=== PATIENT | female | born 1990 | race Caucasian/White ===

== ENCOUNTER 2023-09-21 10:33 | Outpatient (AMB) | payer OTHER, SELFPAY ==
--- NOTE | 2023-09-21 10:41 | A.OFFPC_ITS ---
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 Patient has not seen a doctor in quite some time. She seems to be suffering with anxiety and grief over the loss of her father a few years ago. Concern-> she does report having some easy bruising and some hair thinning that has been unusual over the last few months. She does admit to a family history of thyroid dysfunction. -->Also reports she has been dealing wit h a lot of heartburn. Has been using omeprazole [id number] would like a script for this. Of note has had an endoscopy in the past though unclear if esophagitis was found. Today blood pressure very elevated in the office. Unclear if her high blood pressure is related to her anxiety or she truly has high blood pressure. She was started on blood pressure monitoring. Anxiety: Has been dealing with anxiety for quite some time now. She reports her anxiety does disrupt her life. Has not spoken with a mental health therapist or tried any medication in the past. Also has times of severe anxiety and panic and is interested in as needed medication for panic disorder. PLAN: Willing to start cognitive behavioral therapy and start low-dose SSRI to help her with anxiety. 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: Would like to establish care with a black oxide operator for cervical cancer screening PFSH Surgical History Hx of cholecystectomy Family History (Updated 09/21/23 @ 10:57 by Abdi Lester PA-C) Father Diabetes Maternal Grandmother Breast cancer Social History (Updated 09/21/23 @ 10:58 by Abdi Lester PA-C) Alcohol intake: current Alcohol intake frequency: a few times a week Alcohol type: beer Patient Tobacco Use Status: Never used Tobacco Current occupational status: employed Current occupation: [employer] Cognitive needs: No Hearing needs: No Vision needs: No Questionnaire PHQ-9 Over the last 2 weeks, how often have you been bothered by any of the following problems? 1. Little interest or pleasure in doing things: not at all 2. Feeling down, depressed, or hopeless: not at all 3. Trouble falling or staying asleep, or sleeping too much: not at all 4. Feeling tired or having little energy: not at all 5. Poor appetite or overeating: not at all 6. Feeling bad about yourself - or that you are a failure or have let yourself or your family down: not at all 7. Trouble concentrating on things, such as reading the newspaper or watching television: not at all 8. Moving or speaking so slowly that other people could have noticed. Or the opposite - being so fidgety or restless that you have been moving around a lot more than usual: not at all 9. Thoughts that you would be better off or of hurting yourself in some way: not at all Total score: 0 Depression Screening Interpretation: Negative Depression Screening Done: Yes 90969 - PHQ-9 Billing: Yes Source: Developed by Drs. Amadeo Rangel, Rosa Isela Cameron, Chris Isabel and colleagues, with an educational pino from [employer]. Thrive Questionnaire Date Thrive assessed: 09/21/23 I am a: Patient What is your living situation today?: I have a steady place to live Within the past 12 months, did the food you bought not last and you didn't have the money to get more?: Never true Within the past 12 months, did you worry whether your food would run out before you got money to buy more?: Never true Do you have trouble paying for medicines?: No Do you have trouble getting transportation to medical appointments?: No Do you have trouble paying your heating and electricity bill?: No Do you have trouble taking care of your child, family member or friend?: No Do you have trouble with day-to-day activities such as bathing, preparing meals, shopping, managing finances, etc.?: No Are you currently unemployed and looking for a job?: No Are you interested in more education?: No Please select the resources that you would like help with: None THRIVE Score: 0 AUDIT C Alcohol Use Questionnaire (AUDIT-C) 1. How often do you have a drink containing alcohol?: Never Total Score: 0 MIRYAM-7 AMB Questionnaire MIRYAM-7 Date MIRYAM - 7 assessed: 09/21/23 Feeling nervous, anxious, or on edge: 3 = Nearly every day Not being able to stop or control worryin = Nearly every day Worrying too much about different things: 3 = Nearly every day Trouble relaxin = Nearly every day Being so restless that it is hard to sit still: 1 = Several days Becoming easily annoyed or irritable: 1 = Several days Feeling afraid as if something awful might happen: 3 = Nearly every day Total MIRYAM-7 score (0-4 normal; 5-9 mild; 10-14 moderate; 15-21 severe): 17 Source: Developed by Drs. Amadeo Rangel, Rosa Isela Cameron, Chris Isabel and colleagues, with an educational pino from [employer]. MIRYAM-7 Assessment Billing MIRYAM-7 Assessment Tool: MIRYAM-7 Assessment 19643 Review of Systems Const Reports fatigue and Denies headache(s) Eyes Denies loss of vision ENT Denies vertigo, Denies dizziness, Denies headache(s) and Denies sore throat Card Denies chest pain, Denies leg edema and Denies lightheadedness Resp Denies cough, Denies hemoptysis and Denies wheezing GI Denies abdominal pain, Denies melena, Denies constipation, Reports dyspepsia, Reports heartburn, Denies diarrhea and Denies vomiting Denies urinary frequency, Denies dysuria and Denies urinary urgency Musc Denies arthralgias, Denies joint swelling, Denies numbness and Denies tingling Skin/Breast Details: + bruising Neuro Denies Abnormal speech present, Denies behavioral changes, Denies vertigo, Denies dizziness, Denies headache(s), Denies loss of vision, Denies memory loss, Denies numbness and Denies tingling Psych Denies anxiety, Denies behavioral changes, Denies depression, Denies memory loss and Denies panic attacks Endo Reports fatigue Felipe/Lymph Denies easy bleeding and Reports easy bruising Aller/Immun Denies wheezing Physical exam (Primary Care) Vital Signs: Last Vital Signs Pulse 65 09/21/23 10:43 BP 162/90 H 09/21/23 10:43 Pulse Ox 100 09/21/23 10:43 Oxygen Delivery Method Room Air 09/21/23 10:43 BMI result Body Mass Index 30.2 Tobacco/Smoking Status: Tobacco use Status Tobacco use date assessed 09/21/23 09/21/23 10:43 Patient Tobacco Use Status Never used Tobacco 09/21/23 10:58 PHQ-9: PHQ-9 Score PHQ-9: Total score 0 09/26/23 16:25 Depression Screening Interpretation: Negative Thrive Assessment: Date of Thrive Assessment Date Thrive assessed 09/21/23 09/21/23 10:43 Const General: healthy appearing, no acute distress, alert and awake Nutritional Appearance: well nourished Orientation/consciousness: oriented to person, oriented to place and oriented to time HENMT Ears: TM's normal bilaterally General nose exam: Normal nasal mucous membranes and turbinates present Eyes Conjunctivae: conjunctivae normal Sclerae: sclerae normal Pupils: Equal, round and reactive pupils present Neck Neck: Yes no lymphadenopathy and Yes no JVD Thyroid: Thyroid normal Carotids: no bruits Resp Effort & Inspection: normal respiratory effort and not tachypneic Auscultation: no crackles, no rales, no rhonchi and no wheezes Cardio Rate: regular rate Rhythm: regular rhythm Heart sounds: no murmurs and normal S1 and S2 GI Palpation (GI): Soft to palpation, nontender, no hepatomegaly and no splenomegaly Auscultation: normal bowel sounds Skin General skin exam: no rashes or lesions noted and dry skin Neuro General: oriented to person, oriented to place and oriented to time Cranial nerves: Yes Equal, round and reactive pupils present Speech: No Abnormal speech present Gait exam (Neuro): Normal gait present Motor exam (neuro): no tremor noted Extrem Right upper extremity: full ROM Left upper extremity: full ROM Right lower extremity: full ROM; no edema Left lower extremity: full ROM; no edema Psych Mental Status: mental status grossly normal Speech and movement: Normal speech and movement present Affect: normal affect Attitude: cooperative Thought process: Normal thought process present Assessment and Plan Assessment & Plan (1) MIRYAM (generalized anxiety disorder): Code(s): F41.1 - Generalized anxiety disorder Plan: Patient's MIRYAM-7 score positive for moderate anxiety. She is willing to start medication and start cognitive behavioral therapy for her anxiety. Also has times of severe panic symptoms thus will supply her with lorazepam to use on a emergency basis for anxious symptoms (2) HTN (hypertension): Code(s): I10 - Essential (primary) hypertension Qualifiers: Hypertension type: primary hypertension Qualified Code(s): I10 - Essential (primary) hypertension Plan: Patient's blood pressure elevated today in office. She is attributing her blood pressure is to being anxious. Will supply patient with a paper Rx for blood pressure monitor kit do home blood pressure monitoring. Will follow-up in 4 weeks to evaluate her blood pressure readings and perhaps start low-dose blood pressure medication. (3) Easy bruising: Code(s): R23.3 - Spontaneous ecchymoses (4) Hair thinning: Code(s): L65.9 - Nonscarring hair loss, unspecified (5) Cervical cancer screening: Code(s): Z12.4 - Encounter for screening for malignant neoplasm of cervix Plan: Willing to establish care with a black oxide operator for cervical cancer screening. (6) GERD (gastroesophageal reflux disease): Code(s): K21.9 - Gastro-esophageal reflux disease without esophagitis Qualifiers: Esophagitis presence: without esophagitis Qualified Code(s): K21.9 - Gastro-esophageal reflux disease without esophagitis Plan: Patient does report dealing with a lot of heartburn as of late. Does use [id number] omeprazole would like a script for this. Will consider GI evaluation due to the continued GERD Orders: Orders TSH reflex Free T4 09/21/23 R23.3 - Spontaneous ecchymoses Comprehensive Winnie. Panel Fast 09/21/23 I10 - Essential (primary) hypertension Complete Blood Count no Diff 09/21/23 I10 - Essential (primary) hypertension Microalbumin, Random (w Creat) 09/21/23 I10 - Essential (primary) hypertension Referrals Counseling Referral F41.1 - Generalized anxiety disorder, Z13.220 - Encounter for screening for lipoid disorders QUALITY REVIEW TRAINER Referral Z12.4 - Encounter for screening for malignant neoplasm of cervix Medications: New sertraline 50 mg PO DAILY 30 tabs 1RF 30 days F41.1 - Generalized anxiety disorder lorazepam 0.5 mg PO BID PRN 10 tabs 0RF anxiety 5 days F41.1 - Generalized anxiety disorder blood pressure monitor take blood pressure reading once a day as needed 1 ea 0RF I10 - Essential (primary) hypertension Coding Level of Care Code New Pt Level 4 (34399) Diagnoses MIRYAM (generalized anxiety disorder) F41.1 Primary hypertension I10 Hypertension type: primary hypertension Easy bruising R23.3 Hair thinning L65.9 Cervical cancer screening Z12.4 Gastroesophageal reflux disease without esophagitis K21.9 Esophagitis presence: without esophagitis Additional Codes MIRYAM-7 Assessment Billing - MIRYAM-7 Assessment Tool: MIRYAM-7 Assessment 75195 ([id number])
[2023-09-21 10:43] VITALS: BP 162/90; PULSE 65; O2SAT 100; BMI 30.2
== END 2023-09-21 11:18 | disposition home or self-care (01) ==
PROVIDERS: PCP Nurse Practitioner Family; Visit Provider Physician Assistant
DX: I10 Essential (primary) hypertension (principal); F41.1 Generalized anxiety disorder; R23.3 Spontaneous ecchymoses; L65.9 Nonscarring hair loss, unspecified; K21.9 Gastro-esophageal reflux disease without esophagitis
CPT/HCPCS: 99204

== ENCOUNTER 2023-09-21 11:30 | Outpatient (REF) | payer OTHER, SELFPAY ==
[2023-09-21 12:05] LABS: Hematocrit 24.4 % (37.0-47.0); Hemoglobin 7.4 g/dl (12.0-16.0); Mean Corpuscular HGB Conc 30.3 g/dl (31.0-35.0); Mean Corpuscular Hemoglobin 26.7 pg (27.0-33.0); Mean Corpuscular Volume 88.1 fL (80.0-98.0); Mean Platelet Volume 10.8 fL (9.4-12.3); Platelet Count 118 X10*3/uL (160-400); Red Blood Count 2.77 X10*6/uL (4.20-5.50); White Blood Count 5.7 X10*3/uL (4.8-10.8)
[2023-09-21 12:51] LABS: Alanine Aminotransferase 29 U/L (0-31); Alkaline Phosphatase 134 U/L (39-117); Anion Gap 21 (12-20); Aspartate Amino Transferase 115 U/L (5-31); Bilirubin Total 2.8 mg/dL (0.0-1.0); Blood Urea Nitrogen 3 mg/dL (9-16); Calcium 8.2 mg/dL (8.4-10.2); Carbon Dioxide 18 mmol/L (22-29); Chloride 104 mmol/L (96-108); Estimated Glomerular Filt Rate > 60; Glucose Fasting 94 mg/dL (60-99); Potassium 3.3 mmol/L (3.3-5.1); Sodium 140 mmol/L (135-145)
[2023-09-21 13:00] LABS: TSH reflex Free T4 1.82 uIU/mL (0.32-4.0)
[2023-09-21 13:22] LABS: Creatinine Urine 188.13 mg/dL
== END 2023-09-21 11:31 | disposition home or self-care (01) ==
LOC: HO.LAB 11:30
PROVIDERS: PCP Physician Assistant; Visit Provider Physician Assistant
DX: I10 Essential (primary) hypertension (principal); R23.3 Spontaneous ecchymoses
CPT/HCPCS: 36415; 80053; 82043; 82570; 84443; 85027

== ENCOUNTER → 2023-10-02 14:20 | Outpatient (BNV) | payer OTHER, SELFPAY | PROVIDERS: PCP Physician Assistant; Visit Provider Internal Medicine Medical Oncology | DX: D64.9 Anemia, unspecified (principal) | CPT/HCPCS: 99204; 99213 ==

== ENCOUNTER 2023-10-03 07:46 | Outpatient (REF) | payer OTHER, SELFPAY ==
--- NOTE | ~2023-10-03 | US_ITS ---
EXAMINATION: US ABDOMEN COMPLETE CLINICAL INFORMATION: Unspecified jaundice. COMPARISON: CT abdomen and pelvis 03/24/2014. Ultrasound abdomen 03/22/2008. TECHNIQUE: Real-time imaging of the abdominal viscera. FINDINGS: PANCREAS: Normal. ABDOMINAL AORTA: The proximal, mid, and distal segments are normal in caliber. INFERIOR VENA CAVA: Visualized portions are normal. LIVER: The liver is markedly enlarged measuring over 26 cm with increased echogenicity consistent with hepatic steatosis. The liver contour is normal. No focal hepatic lesion. There is no intrahepatic biliary duct dilatation seen. GALLBLADDER: Surgically absent. COMMON BILE DUCT: Normal in caliber measuring 0.3 cm in diameter. RIGHT KIDNEY: Normal. No hydronephrosis. No renal calculi or focal parenchymal lesions. The kidney measures 13.4 cm in maximum dimension. LEFT KIDNEY: Normal. No hydronephrosis. No renal calculi or focal parenchymal lesions. The kidney measures 14.2 cm in maximum dimension. SPLEEN: The spleen is massive in size measuring 20.8 cm in maximum dimension. FREE FLUID: None. US/US abdomen complete IMPRESSION: Enlarged fatty liver with massive splenomegaly.
== END 2023-10-03 07:47 | disposition home or self-care (01) ==
LOC: HO.US 07:46
PROVIDERS: PCP Physician Assistant; Visit Provider Physician Assistant
DX: R17 Unspecified jaundice (principal)
CPT/HCPCS: 76700

== ENCOUNTER → 2023-10-18 10:58 | Day surgery (SDC) | payer OTHER, SELFPAY ==
--- NOTE | ~2023-10-18 | CT_ITS ---
PROCEDURE: CT GUIDED BIOPSY CLINICAL INFORMATION: Splenomegaly COMPARISON: None available. TECHNIQUE/FINDINGS: This CT examination was performed using dose optimization techniques as appropriate, variously including the following: *Automated exposure control *Adjustment of mA and/or kV according to patient size (this includes techniques or standardized protocols for targeted exams where dose is matched to indication/reason for exam; i.e. extremities or head) *Use of iterative reconstruction technique DLP: 204 mGy-cm CONSCIOUS SEDATION: I personally supervised an independent trained observer for moderate conscious sedation utilizing 2mg of Versed and 100 mcg of fentanyl. The patient was monitored with pulse oximetry, blood pressure cuff, and EKG leads by a registered nurse. Total intraservice sedation time: 30 minutes Informed consent was obtained following the risk and benefits of the procedure with the patient. The patient was placed prone on the fluoroscopy table. A limited CT scan of the pelvis was performed. A site overlying the right lower back was selected, marked and sterilely prepped and draped. Following the administration of 1% lidocaine for local anesthesia, the right iliac bone was accessed with a 13-gauge trocar needle. Bone marrow aspirate was performed and the specimens were divided into green and purple top tubes. Then, a core biopsy of the bone marrow was performed in the samples placed in formalin. The samples were deemed to be adequate. The needle was removed and hemostasis was achieved with manual compression. A dressing was applied. Post biopsy images demonstrate no bleeding or other complication. Patient tolerated the procedure well. CT/CT biopsy asp core bone marrow . IMPRESSION: Bone marrow biopsy
[2023-10-18 11:20] VITALS: BMI 27.8
[2023-10-18 11:20] LABS: UPreg QC Valid YES; Urine Pregnancy NEGATIVE (NEGATIVE)
--- NOTE | 2023-10-18 12:21 | MHC.SHP ---
Pre-Procedural Eval Section A - 24 Hr Update-Section A only Date of Service: 10/18/23 Section B - Complete if H&P > 30 days Chief Complaint: BONE MARROW, SPLENOMEGALY Details of Present Illness: 33 y/o female with anemia and splenomegaly. Hematology requests a bone marrow biopsy Relevant Family History (Specify if Yes): No Relevant Social History: None Present Medications: see Short Stay Collaborative assessment Medical History: Significant History History of Previous Operations: No relevant previous surgery Allergies: Allergies Allergy/AdvReac Type Severity Reaction Status Date / Time No Known Allergies Allergy Verified 10/18/23 11:21 Review of Systems Sugical H&P ROS: Negative: Cardiovascular and Respiratory and Yes, Specify: Integumentary (rash on chest) Exam Surgical H&P Exam: Normal: Heart, Normal: Lungs, Normal: Skin and Normal: Neurological Plan CT bone marrow biopsy Time Spent With Patient Time: Total time managing care of this patient today ____ minutes.
[2023-10-18 14:59] LABS: Bone Marrow SEE SEPARATE REPORT
== END | disposition home or self-care (01) ==
PROVIDERS: Pathology Anatomic Pathology & Clinical Pathology; Physician Assistant Surgical; Student in an Organized Health Care Education/Training Program; PCP Physician Assistant; Visit Provider Internal Medicine Medical Oncology
PROC: (CPT 38221; principal; 2023-10-18 13:00)
DX: D64.9 Anemia, unspecified (principal); R16.1 Splenomegaly, not elsewhere classified
CPT/HCPCS: 36415; 38222; 81025; 81455; 88184; 88185; 88237; 88264; 88305; 88311; 88313; 99152; J0665; J1642; J2250; J2310; J3010

== ENCOUNTER → 2023-10-18 11:36 | Outpatient (BNV) | payer OTHER, SELFPAY | PROVIDERS: PCP Physician Assistant; Visit Provider Student in an Organized Health Care Education/Training Program | DX: R16.1 Splenomegaly, not elsewhere classified (principal) | CPT/HCPCS: 38222; 99152 ==

== ENCOUNTER 2023-10-19 15:40 | Outpatient (AMB) | payer OTHER, SELFPAY ==
--- NOTE | 2023-10-19 15:45 | A.OFFPC_ITS ---
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 Accompanied by: Self / Same As Patient Allergies No Known Allergies Allergy (Verified 10/19/23 15:52) Medication List - Last Reconciled 10/19/23 by Abdi Lester PA-C blood pressure monitor take blood pressure reading once a day as needed ferrous sulfate 325 mg PO BID 90 days folic acid 1 mg PO DAILY lorazepam 0.5 mg PO BID PRN 5 days omeprazole 20 mg PO DAILY potassium chloride ER 20 mEq PO BID sertraline 50 mg PO DAILY 30 days Tobacco use date assessed: 09/21/23 Dental Screening Dental Screen Date: 09/21/23 HPI 4 weeks F/U for anxiety HPI Details Patient is a 33-year-old female here today for follow-up visit. At last visit we discussed her mental health and started on SSRI therapy sertraline 50 mg. Labs were abnormal 4 normocytic anemia and hypokalemia. She was sent to Hematology and will be getting workup with bone marrow biopsy. She has been started on iron supplementation and folic acid. .. Liver enzymes elevated thus will send for ultrasound which did show fatty liver and enlarged spleen. .. Generalized anxiety disorder: Has been started on sertraline 50 mg which she reports she has noted a difference in her anxious symptoms. Would like to continue medication for now. She has use lorazepam 0.5 mg on very limited basis. She is still waiting a call from counseling to set up cognitive behavioral therapy. Laboratory Tests 10/02/23 10/02/23 10/10/23 14:40 14:50 15:01 Hgb 7.3 L 8.6 L Haptoglobin 116 Potassium 2.9 L* 4.3 D Total Bilirubin 1.4 H AST 65 H 63 H PFSH Surgical History Hx of cholecystectomy Family History Father Diabetes Maternal Grandmother Breast cancer Family/Other Lymphoma Social History Household Members: Family Housing: Apartment Alcohol intake: current Alcohol intake frequency: a few times a week Alcohol type: beer Patient Tobacco Use Status: Never used Tobacco e-Cigarette/Vaping Use: Never Used Second Hand Smoke Exposure: No service: No Current occupational status: employed Current occupation: [employer] Cognitive needs: No Hearing needs: No Vision needs: No Questionnaire Thrive Questionnaire Date Thrive assessed: 09/21/23 MIRYAM-7 AMB Questionnaire MIRYAM-7 Date MIRYAM - 7 assessed: 09/21/23 Source: Developed by Drs. Amadeo Rangel, Rosa Isela Cameron, Chris Isabel and colleagues, with an educational pino from [employer]. Review of Systems Const Denies headache(s) Eyes Denies loss of vision ENT Denies vertigo, Denies dizziness, Denies headache(s) and Denies sore throat Card Denies chest pain, Denies leg edema and Denies lightheadedness Resp Denies cough, Denies hemoptysis and Denies wheezing GI Denies abdominal pain, Denies melena, Denies constipation, Denies diarrhea and Denies vomiting Denies urinary frequency, Denies dysuria and Denies urinary urgency Musc Denies arthralgias, Denies joint swelling, Denies numbness and Denies tingling Neuro Denies Abnormal speech present, Denies behavioral changes, Denies vertigo, Denies dizziness, Denies headache(s), Denies loss of vision, Denies memory loss, Denies numbness and Denies tingling Psych Denies anxiety, Denies behavioral changes, Denies depression, Denies memory loss and Denies panic attacks Felipe/Lymph Denies easy bleeding and Denies easy bruising Aller/Immun Denies wheezing Physical exam (Primary Care) Vital Signs: Last Vital Signs Pulse 64 10/19/23 15:46 BP 136/62 10/19/23 15:46 Pulse Ox 99 10/19/23 15:46 Oxygen Delivery Method Room Air 10/19/23 15:46 BMI result Body Mass Index 28.4 Tobacco/Smoking Status: Tobacco use Status Tobacco use date assessed 09/21/23 10/19/23 15:47 Patient Tobacco Use Status Never used Tobacco 10/19/23 15:47 e-Cigarette/Vaping Use Never Used 10/19/23 15:47 Thrive Assessment: Date of Thrive Assessment Date Thrive assessed 09/21/23 10/19/23 15:47 Const General: healthy appearing, no acute distress, alert and awake Nutritional Appearance: well nourished Orientation/consciousness: oriented to person, oriented to place and oriented to time HENMT Ears: TM's normal bilaterally General nose exam: Normal nasal mucous membranes and turbinates present Eyes Conjunctivae: conjunctivae normal Sclerae: sclerae normal Pupils: Equal, round and reactive pupils present Neck Neck: Yes no lymphadenopathy and Yes no JVD Thyroid: Thyroid normal Carotids: no bruits Resp Effort & Inspection: normal respiratory effort and not tachypneic Auscultation: no crackles, no rales, no rhonchi and no wheezes Cardio Rate: regular rate Rhythm: regular rhythm Heart sounds: no murmurs and normal S1 and S2 GI Palpation (GI): Soft to palpation, nontender, no hepatomegaly and no splenomegaly Auscultation: normal bowel sounds Skin General skin exam: no rashes or lesions noted and dry skin Neuro General: oriented to person, oriented to place and oriented to time Cranial nerves: Yes Equal, round and reactive pupils present Speech: No Abnormal speech present Gait exam (Neuro): Normal gait present Motor exam (neuro): no tremor noted Extrem Right upper extremity: full ROM Left upper extremity: full ROM Right lower extremity: full ROM; no edema Left lower extremity: full ROM; no edema Psych Mental Status: mental status grossly normal Speech and movement: Normal speech and movement present Affect: normal affect Attitude: cooperative Thought process: Normal thought process present Assessment and Plan Assessment & Plan (1) MIRYAM (generalized anxiety disorder): Code(s): F41.1 - Generalized anxiety disorder Plan: As per HPI patient is anxiety seems to have been better. Her health issues are being investigated which helps her anxiety as well. She would like to continue on sertraline 50 mg for now. She will be awaiting a call from counseling service to start up with mental health therapy. (2) Normochromic normocytic anemia: Code(s): D64.9 - Anemia, unspecified Plan: Now followed by Hematology. Has been started on iron and folic acid which she feels has been helpful. Hemoglobin has been trending up (3) Coccyx pain: Code(s): M53.3 - Sacrococcygeal disorders, not elsewhere classified Plan: Secondary to her recent bone marrow biopsy. Will supply patient with short-term script of tramadol to use for pain. (4) HTN (hypertension): Code(s): I10 - Essential (primary) hypertension Qualifiers: Hypertension type: primary hypertension Qualified Code(s): I10 - Essential (primary) hypertension Plan: Patient's blood pressure much improved today in office. She has been able to lose weight and her anxiety seems much better manage at this time. Will continue without medication for the control of her blood pressure and continue working on lifestyle and dietary modifications. Goal blood pressures to remain below 140/90 consistently. Medications: New tramadol 50 mg PO DAILY 5 days 5 tabs 0RF M53.3 - Sacrococcygeal disorders, not elsewhere classified Refilled sertraline 50 mg PO DAILY 30 days 30 tabs 1RF F41.1 - Generalized anxiety disorder Coding Level of Care Code Est Pt Level 4 (83955) Diagnoses MIRYAM (generalized anxiety disorder) F41.1 Normochromic normocytic anemia D64.9 Coccyx pain M53.3 Primary hypertension I10 Hypertension type: primary hypertension
[2023-10-19 15:46] VITALS: BP 136/62; PULSE 64; O2SAT 99; BMI 28.4
== END 2023-10-19 16:17 | disposition home or self-care (01) ==
PROVIDERS: PCP Physician Assistant; Visit Provider Physician Assistant
DX: F41.1 Generalized anxiety disorder (principal); D64.9 Anemia, unspecified; M53.3 Sacrococcygeal disorders, not elsewhere classified; I10 Essential (primary) hypertension
CPT/HCPCS: 99214

== ENCOUNTER 2023-10-27 11:50 | Outpatient (AMB) | payer OTHER, SELFPAY ==
--- NOTE | 2023-10-27 12:06 | A.OFFVIS_ITS ---
Vital Signs 10/27/23 12:07 Height 5 ft 9 in Weight 189 lb 9.561 oz BMI 28.0 BP 116/60 Blood Pressure Location Lt brachial Position Sitting Pulse 69 Intake Visit Reasons: *URGENT* Oncology referral, colo scrn Intake Note: christy presents in the office as a Urgent colo screening. CC: She is getting an iron infusion on monday. Working with Dr Guerra - had a bone biopsy. Has anemia and wants to look into further. Babcock Tester Required: No Allergies No Known Allergies Allergy (Verified 10/27/23 12:08) HPI HPI *URGENT* Oncology referral, colo scrn: Details: 33-year-old female with past medical history of anemia, GERD, elevated bilirubin, GERD, hypertension, transaminitis, history of EtOH use is here today for initial consultation. Patient was referred to us by her oncologist chick grader. Patient is seen for anemia. Patient will start having IV iron infusion. Patient had bone marrow biopsy done, however due to sampling unable to complete the study. Recent lab work and abdominal ultrasound Laboratory Tests 10/02/23 10/10/23 10/17/23 14:50 15:01 15:00 RBC 3.22 L Hgb 8.6 L Hct 28.0 L MCV 87.0 MCH 26.7 L MCHC 30.7 L RDW 24.4 H Plt Count 321 PT 16.4 H INR 1.3 H APTT 43.4 H vWF VIII Activity 158 von Willebrand Antigen 190 Iron 155 TIBC 355 % Saturation 44 Ferritin 19 Total Bilirubin 1.4 H AST 63 H ALT 16 Alkaline Phosphatase 83 LIVER: The liver is markedly enlarged measuring over 26 cm with increased echogenicity consistent with hepatic steatosis. The liver contour is normal. No focal hepatic lesion. There is no intrahepatic biliary duct dilatation seen. GALLBLADDER: Surgically absent. COMMON BILE DUCT: Normal in caliber measuring 0.3 cm in diameter. RIGHT KIDNEY: Normal. No hydronephrosis. No renal calculi or focal parenchymal lesions. The kidney measures 13.4 cm in maximum dimension. LEFT KIDNEY: Normal. No hydronephrosis. No renal calculi or focal parenchymal lesions. The kidney measures 14.2 cm in maximum dimension. SPLEEN: The spleen is massive in size measuring 20.8 cm in maximum dimension. FREE FLUID: None. US/US abdomen complete IMPRESSION: Enlarged fatty liver with massive splenomegaly. Patient does admit to drinking alcohol in the past. Patient states that currently she is not drinking alcohol. Denies any family history of autoimmune disorders. When evaluating patient and speaking to her I have noticed telangiectasia on her nose and her chest. Patient reports that this appeared about a year ago or so. Patient denies any abdominal pain or discomfort. Denies any dyspepsia, dysphagia or odynophagia. Patient denies any acid reflux at this time. Patient was started on omeprazole couple months ago and states that medication has been working. Denies any melena, hematochezia, unintentional weight loss or ribbon like stools. PFSH Surgical History Hx of colonoscopy History of esophagogastroduodenoscopy (EGD) Hx of cholecystectomy Family History Father Diabetes Maternal Grandmother Breast cancer Family/Other Lymphoma Social History Household Members: Family Housing: Apartment Alcohol intake: current Alcohol intake frequency: a few times a week Alcohol type: beer Patient Tobacco Use Status: Never used Tobacco e-Cigarette/Vaping Use: Never Used Second Hand Smoke Exposure: No service: No Current occupational status: employed Current occupation: [employer] Cognitive needs: No Hearing needs: No Vision needs: No Review of Systems Const Denies weight gain and Denies weight loss ENT Reports no additional complaints, Denies dysphagia and Denies odynophagia Card Reports no additional complaints Resp Reports no additional complaints GI Denies abdominal pain, Denies belching, Denies melena, Denies bloating, Denies change in bowel habits, Denies dysphagia, Denies excessive flatus, Denies dyspepsia, Denies heartburn, Denies diarrhea, Denies loose stools, Denies nausea, Denies odynophagia and Denies vomiting Musc Reports no additional complaints Neuro Reports no additional complaints Psych Reports no additional complaints Endo Reports no additional complaints Physical Exam Vital Signs: Last Vital Signs Pulse 69 10/27/23 12:07 BP 116/60 10/27/23 12:07 BMI result Body Mass Index 28.0 Const General: healthy appearing, no acute distress and well developed Nutritional Appearance: well nourished Orientation/consciousness: patient oriented x3 Resp Effort & Inspection: normal respiratory effort, able to speak in complete sentences, no tracheal deviation and symmetric chest movement Auscultation: clear to auscultation bilaterally Cardio Rate: regular rate GI Inspection: Yes normal to inspection and No distended Palpation (GI): Soft to palpation, not firm, nontender and No hepatosplenomegaly present Auscultation: normal bowel sounds General: Yes no CVA tenderness Back/Spine/Pelvis Back: no CVA tenderness Skin General skin exam: elasticity normal, turgor normal and dry skin Neuro General: patient oriented x3 Psych Appearance: grossly normal Mental Status: mental status grossly normal Assessment & Plan Assessment & Plan (1) Anemia: Code(s): D64.9 - Anemia, unspecified Category: Medical Qualifiers: Anemia type: unspecified type Qualified Code(s): D64.9 - Anemia, unspecified (2) GERD (gastroesophageal reflux disease): Code(s): K21.9 - Gastro-esophageal reflux disease without esophagitis Category: Medical Qualifiers: Esophagitis presence: without esophagitis Qualified Code(s): K21.9 - Gastro-esophageal reflux disease without esophagitis (3) Telangiectasia: Code(s): I78.1 - Nevus, non-neoplastic (4) Transaminitis: Code(s): R74.01 - Elevation of levels of liver transaminase levels (5) Hepatic steatosis: Code(s): K76.0 - Fatty (change of) liver, not elsewhere classified (6) Splenomegaly: Code(s): R16.1 - Splenomegaly, not elsewhere classified Plan Patient will continue omeprazole. Will do liver fibrosis panel as well as liver elastography ultrasound. Repeat liver panel today. Patient reports that she is no longer drinking alcohol. Advised avoiding alcohol as well as food high in fat. More protein and vegetables. Will check vitamin B12, folate vitamin-D level. Pending results we might order extra testing to rule out any autoimmune disorders. Patient will return to the office in 2 weeks, sooner on as needed basis. She is agreeable to this plan and verbalizes understanding of instructions. She was given the opportunity to ask questions and all questions answered. Thank you for allowing me to participate in her care Orders: Orders Vitamin B12 and Folate Today R19.7 - Diarrhea, unspecified Vitamin D 25-OH (D2 and D3) Today E55.9 - Vitamin D deficiency, unspecified Liver Fibrosis Pnl Today R74.8 - Abnormal levels of other serum enzymes US abdomen rhodes w elastography Today R74.01 - Elevation of levels of liver transaminase levels Liver Panel Today R74.01 - Elevation of levels of liver transaminase levels Coding Level of Care Code New Pt Level 4 (72783) Diagnoses Anemia, unspecified type D64.9 Anemia type: unspecified type Gastroesophageal reflux disease without esophagitis K21.9 Esophagitis presence: without esophagitis Telangiectasia I78.1 Transaminitis R74.01 Hepatic steatosis K76.0 Splenomegaly R16.1 Time Spent (min) 45 Comment 30 minutes spent with patient and additional 15 minutes spent reviewing her records
[2023-10-27 12:07] VITALS: BP 116/60; PULSE 69; BMI 28.0
== END 2023-10-27 13:33 | disposition home or self-care (01) ==
PROVIDERS: PCP Physician Assistant; Visit Provider Nurse Practitioner Family
DX: D64.9 Anemia, unspecified (principal); K21.9 Gastro-esophageal reflux disease without esophagitis; I78.1 Nevus, non-neoplastic; R74.01 Elevation of levels of liver transaminase levels; K76.0 Fatty (change of) liver, not elsewhere classified; R16.1 Splenomegaly, not elsewhere classified
CPT/HCPCS: 99204

== ENCOUNTER 2023-10-27 11:50 | Outpatient (REF) | payer OTHER, SELFPAY ==
[2023-10-27 14:37] LABS: Alanine Aminotransferase 38 U/L (0-31); Albumin Level 4.3 g/dL (3.5-5.0); Alkaline Phosphatase 75 U/L (39-117); Aspartate Amino Transferase 123 U/L (5-31); Bilirubin Direct 0.7 mg/dL (0.0-0.5); Bilirubin Total 1.4 mg/dL (0.0-1.0); Total Protein 8.1 g/dL (6.5-8.0)
[2023-10-27 15:08] LABS: Folate 14.6 ng/mL (> or = 4.0); Vitamin B12 847 pg/mL (200-900)
[2023-10-31 14:09] LABS: Vitamin D 25-OH, D2 <4 ng/mL; Vitamin D 25-OH, D3 13 ng/mL; Vitamin D 25-OH, Total 13 ng/mL (30-100)
[2023-11-04 12:18] LABS: FIB-ALT 34 U/L (6-29); FIB-Alpha-2-Macroglobulin 328 mg/dL (106-279); FIB-Apolipoprotein A1 80 mg/dL (101-198); FIB-GGT 354 U/L (3-50); FIB-Haptoglobin 116 mg/dL (43-212); FIB-Total Bilirubin 1.4 mg/dL (0.2-1.2); Liver Fibrosis Score 0.85; Liver Fibrosis Stage F4; Nec Inflam Act Grade A1; Nec Inflam Act Score 0.33
== END 2023-10-27 11:51 | disposition home or self-care (01) ==
LOC: HO.LAB 11:50
PROVIDERS: PCP Physician Assistant; Visit Provider Nurse Practitioner Family
DX: R74.8 Abnormal levels of other serum enzymes (principal); R74.01 Elevation of levels of liver transaminase levels; R19.7 Diarrhea, unspecified; E55.9 Vitamin D deficiency, unspecified; D64.9 Anemia, unspecified; K21.9 Gastro-esophageal reflux disease without esophagitis; I78.1 Nevus, non-neoplastic
CPT/HCPCS: 36415; 80076; 81596; 82306; 82607; 82746; 99202

== ENCOUNTER 2023-11-01 14:01 | Outpatient (AMB) | payer OTHER, SELFPAY ==
[2023-11-01 14:12] VITALS: BP 128/72; BMI 28.4
--- NOTE | 2023-11-01 14:12 | A.OFFVIS_ITS ---
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 Client Care Manager Required: No Information Interpreted: clinical only Apartment Maintenance Worker: Apartment Maintenance Worker Present Allergies No Known Allergies Allergy (Verified 11/01/23 14:12) Medication List - Last Reconciled 11/01/23 by Yasmine Rinaldi CNM blood pressure monitor take blood pressure reading once a day as needed ferrous sulfate 325 mg PO BID 90 days folic acid 1 mg PO DAILY lorazepam 0.5 mg PO BID PRN 5 days omeprazole 20 mg PO DAILY potassium chloride ER 20 mEq PO BID sertraline 50 mg PO DAILY 30 days tramadol 50 mg PO DAILY 5 days Is last menstrual period known: Yes Last menstrual period: 10/23/23 HPI HPI 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 She did not remember if she had ever had a Pap smear she thinks though she was seen at [facility] in the past she has been through a lot recently in that she was told that she was very severely anemic and they could not find a cause for her anemia because her periods are not that heavy. She uses tampons for them they used to be heavier with heavier clots. She is undergoing evaluation and treatment for the anemia she had a bone marrow biopsy but the sample was not good in the meantime she is taking vitamin B12 shots and she started yesterday with an iron transfusion she felt okay right after but then she did not feel well in the evening. She knows that this weekly transfusions of up to 4. If her body does not respond to the iron then she might need another bone marrow biopsy. She is sexually active she uses condoms currently. She was on control pills to help with heavy periods when she was teenager but not recently. 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 She has recently lost weight somewhat intentionally trying to be healthier she did not weigh herself per se but she was trying to be healthier and she went down about 3 sizes. She walks for exercise and lift some weights. [facility] Surgical History Hx of colonoscopy History of esophagogastroduodenoscopy (EGD) Hx of cholecystectomy Family History Father Diabetes Maternal Grandmother Breast cancer Family/Other Lymphoma Social History Household Members: Family Housing: Apartment Alcohol intake: current Alcohol intake frequency: a few times a week Alcohol type: beer Patient Tobacco Use Status: Never used Tobacco e-Cigarette/Vaping Use: Never Used Second Hand Smoke Exposure: No service: No Current occupational status: employed Current occupation: [employer] Cognitive needs: No Hearing needs: No Vision needs: No Female Reproductive History Menstrual Age of Menarche: 10 Duration of menses: 6-7 days Date of last menstrual period: 10/23/23 control method: none Total pregnancies: 0 History of abnormal pap smear: No (no previous pap) Physical Exam Vital Signs: Last Vital Signs BP 128/72 11/01/23 14:12 BMI result Body Mass Index 28.4 Const General: healthy appearing, comfortable, no acute distress, well developed and alert Nutritional Appearance: average body habitus Orientation/consciousness: patient oriented x3 Limitations: no limitations HEENT Head: Yes normocephalic Neck Neck: Yes normal visual inspection Thyroid: Thyroid normal Chest Chest palpation & inspection: normal inspection of the chest Breast/axilla inspection: normal inspection of the breasts and normal inspection of the axillae Breast/axilla palpation: normal palpation of the breasts and normal palpation of the axillae Resp Effort & Inspection: normal respiratory effort GI Inspection: Yes normal to inspection, No Abdominal wall edema and No distended Palpation (GI): Soft to palpation and nontender Other: External exam within normal limits vagina clear slightly dry end of menses noted cervix nulliparous pink smooth healthy with menses ending. (patient just remove tampon for exam) Uterus small anteverted mobile nontender adnexa nontender good tone with Kegel General: Yes bladder normal to palpation External Female Exam: normal external appearance and normal appearance of the urethra Speculum Exam - Vagina: normal appearance of the vagina, normal palpation and normal vaginal discharge Speculum Exam - Cervix: normal appearance of the cervix, normal palpation and nontender Bimanual exam- vagina & uterus: normal bimanual exam, normal palpation, uterine size normal, bladder normal to palpation, consistency normal, normal palpation, uterine mobility normal, uterine shape normal, No Cervical tenderness present, non-tender and no cervical motion tenderness Bimanual Exam- Adnexa, other: normal adnexae, no masses, normal and No adnexal tenderness Skin Other: Has a fine red rash on chest Neuro General: patient oriented x3 Assessment & Plan Assessment & Plan (1) Normochromic normocytic anemia: Code(s): D64.9 - Anemia, unspecified Category: Medical (2) Anemia: Code(s): D64.9 - Anemia, unspecified Category: Medical Qualifiers: Anemia type: unspecified type Qualified Code(s): D64.9 - Anemia, unspecified (3) Well woman exam with routine gynecological exam: Code(s): Z01.419 - Encounter for gynecological examination (general) (routine) without abnormal findings Category: Medical (4) Cervical cancer screening: Code(s): Z12.4 - Encounter for screening for malignant neoplasm of cervix Category: Medical (5) control counseling: Code(s): Z30.09 - Encounter for other general counseling and advice on contraception Category: Medical (6) Breast cancer screening: Code(s): Z12.39 - Encounter for other screening for malignant neoplasm of breast Category: Medical (7) Encounter for screening examination for sexually transmitted disease: Code(s): Z11.3 - Encounter for screening for infections with a predominantly sexual mode of transmission Category: Medical Plan -----Discussed in this visit the following: healthy balanced diet, regular and consistent exercise, getting recommended health screens, doing the best she can for her particular health concerns, kegel exercises, pap smear screening and followup recommendations, mammography screening and SBE, normal changes in cycles in her life stage--- . Review that sometimes it could be a consideration to take contraceptives to manage her menses and make them mo tolerable re consideration could al be given to a Mirena ius. discussed that she may or may not wish to consider whether not she is interested in conceiving she has got a lot on her plate now deal with the new diagnosis of the anemia and the health uncertainty at poses as well. She was not interested in blood work for STI testing she has had so much blood drawn already. I wished her luck with her continued evaluation and treatment. Did review diet she does try to have a healthy diet though she is not a big meat eater. She will be continuing care and follow-up with her primary care and hematology. Orders: Orders CT NG by PCR Today Z20.2 - Contact with and (suspected) exposure to infections with a predominantly sexual mode of transmission Bacterial Vaginosis Panel Today N89.8 - Other specified noninflammatory d isorders of vagina PAP + HPV E6/E7 rfx 18/45 Today Z01.419 - Encounter for gynecological examination (general) (routine) without abnormal findings Coding Level of Care Code New Pt Prev Care 18-39yr([id number] Diagnoses Normochromic normocytic anemia D64.9 Anemia, unspecified type D64.9 Anemia type: unspecified type Well woman exam with routine gynecological exam Z01.419 Cervical cancer screening Z12.4 control counseling Z30.09 Breast cancer screening Z12.39 Encounter for screening examination for sexually transmitted disease Z11.3
== END 2023-11-01 15:17 | disposition home or self-care (01) ==
LOC: HO.HWSM 14:01
PROVIDERS: PCP Physician Assistant; Visit Provider Advanced Practice Midwife
DX: Z01.419 Encounter for gynecological examination (general) (routine) without abnormal findings (principal); D64.9 Anemia, unspecified
CPT/HCPCS: 99385

== ENCOUNTER 2023-11-01 14:01 | Outpatient (REF) | payer OTHER, SELFPAY ==
[2023-11-03 02:49] LABS: CT PCR NOT DETECTED (Not Detect.); NG PCR NOT DETECTED (Not Detect.)
[2023-11-03 10:50] LABS: Bacterial Vaginosis PCR NEGATIVE (Negative); Candida Group PCR NOT DETECTED (Not Detect); Candida glab krusei PCR NOT DETECTED (Not Detect); Trichomonas vaginalis PCR NOT DETECTED (Not Detect)
[2023-11-06 11:43] LABS: HPV mRNA E6/E7 Not Detected (Not Detected)
== END 2023-11-01 14:02 | disposition home or self-care (01) ==
LOC: HO.LAB 14:01
PROVIDERS: PCP Physician Assistant; Visit Provider Advanced Practice Midwife
DX: Z01.419 Encounter for gynecological examination (general) (routine) without abnormal findings (principal); D64.9 Anemia, unspecified; N89.8 Other specified noninflammatory disorders of vagina; Z20.2 Contact with and (suspected) exposure to infections with a predominantly sexual mode of transmission
CPT/HCPCS: 0352U; 36415; 87491; 87591; 87624; 88175; 99385

== ENCOUNTER 2023-11-08 07:54 | Day surgery (SDC) | payer OTHER, SELFPAY ==
--- NOTE | 2023-11-07 11:22 | P.CONAN_ITS ---
HPI - Anesthesia Eval Consult details Narrative: 33yo F for Upper Endoscopy and Colonoscopy PMFSH Active Problems Active Problems: All Active Problems Encounter for screening examination for sexually transmitted disease (Acute) Breast cancer screening (Acute) control counseling (Acute) Cervical cancer screening (Acute) Well woman exam with routine gynecological exam (Acute) Coccyx pain (Acute) Normochromic normocytic anemia (Acute) GERD (gastroesophageal reflux disease) (Acute) Total bilirubin, elevated (Acute) Anemia (Acute) HTN (hypertension) (Acute) MIRYAM (generalized anxiety disorder) (Acute) Past Medical History Medical History (Updated 11/21/23 @ 14:21 by Esteban Guerra MD) Anemia Family History Family History Father Diabetes Maternal Grandmother Breast cancer Family/Other Lymphoma Surgical History Surgical History Hx of colonoscopy History of esophagogastroduodenoscopy (EGD) Hx of cholecystectomy Social History Social History Household Members: Family Housing: Apartment Alcohol intake: current Alcohol intake frequency: a few times a week Alcohol type: beer Patient Tobacco Use Status: Never used Tobacco e-Cigarette/Vaping Use: Never Used Second Hand Smoke Exposure: No Use of substances other than those prescribed or required for medical reasons: No Have you been hit, kicked, punched, or otherwise hurt by someone within the past year? If so, by whom?: No Do you feel safe in your current relationship?: Yes Do you have thoughts of harming others: None Do you have a plan to hurt others: No Plan Patient : No service: No Current occupational status: employed Current occupation: [employer] Cognitive needs: No Hearing needs: No Vision needs: No Meds Allergies Allergy/AdvReac Type Severity Reaction Status Date / Time No Known Allergies Allergy Verified 11/21/23 14:12 Assessment and Plan Assessment Anesthesia Assessment: Chart Reviewed
[2023-11-08 08:24] VITALS: BMI 28.2
[2023-11-08 08:29] VITALS: BP 150/76; PULSE 60; RESP 16; TEMP 36.7; O2SAT 98
[2023-11-08 08:29] LABS: UPreg QC Valid YES; Urine Pregnancy NEGATIVE (NEGATIVE)
--- NOTE | 2023-11-08 08:32 | MHC.SHP ---
Pre-Procedural Eval Section A - 24 Hr Update-Section A only Date of Service: 11/08/23 Section B - Complete if H&P > 30 days Chief Complaint: anemia,gerd, Relevant Family History (Specify if Yes): No Relevant Social History: None Present Medications: see Short Stay Collaborative assessment Medical History: Significant History (anxiety, splenomegaly ) History of Previous Operations: Relevant previous surgery/procedure and date(s) (Hx of colonoscopy History of esophagogastroduodenoscopy (EGD) Hx of cholecystectomy) Allergies: Allergies Allergy/AdvReac Type Severity Reaction Status Date / Time No Known Allergies Allergy Verified 11/01/23 14:12 Review of Systems Sugical H&P ROS: Negative: Constitution, Cardiovascular, Respiratory, Neurological, Psychiatric, Hem-Onc, Allergic/Immunologic, Gastrointestinal, Genitourinary, Musculoskeletal, Integumentary, Endocrine and Eyes/Ears/Nose/Throat Exam Surgical H&P Exam: Normal: HEENT, Normal: Heart, Normal: Lungs, Normal: Extremities and Normal: Neurological and Significant Findings: Abdomen and Significant Findings: Skin Exam Comment: spider naevi and splenomegaly Plan Diagnosis/Plan: Unchanged I have reviewed the history and physical and performed a pertinent physical examination on my patient. No changes have occurred unless specified. EGD and colonoscopy for investigation of anemia Time Spent With Patient Time: Total time managing care of this patient today ____ minutes.
--- NOTE | 2023-11-08 08:38 | HO.ANESPROP2 ---
[facility] Active Problems Active Problems: All Active Problems Encounter for screening examination for sexually transmitted disease (Acute) Breast cancer screening (Acute) control counseling (Acute) Cervical cancer screening (Acute) Well woman exam with routine gynecological exam (Acute) Coccyx pain (Acute) Normochromic normocytic anemia (Acute) GERD (gastroesophageal reflux disease) (Acute) Total bilirubin, elevated (Acute) Anemia (Acute) HTN (hypertension) (Acute) MIRYAM (generalized anxiety disorder) (Acute) Past Medical History Medical History (Updated 11/08/23 @ 08:17 by Mary Kaye RN) Anemia Family History Family History Father Diabetes Maternal Grandmother Breast cancer Family/Other Lymphoma Family history of problems with anesthesia: No Surgical History Surgical History (Updated 11/06/23 @ 22:40 by Esteban Guerra MD) Hx of colonoscopy History of esophagogastroduodenoscopy (EGD) Hx of cholecystectomy History of Problems with Anesthesia: No Social History Social History Household Members: Family Housing: Apartment Alcohol intake: current Alcohol intake frequency: a few times a week Alcohol type: beer Patient Tobacco Use Status: Never used Tobacco e-Cigarette/Vaping Use: Never Used Second Hand Smoke Exposure: No Use of substances other than those prescribed or required for medical reasons: No Are you DNR?: No Advance Directives: No Advance Directives Information Provided: Yes service: No Current occupational status: employed Current occupation: [employer] Cognitive needs: No Hearing needs: No Vision needs: No Meds Allergies Allergy/AdvReac Type Severity Reaction Status Date / Time No Known Allergies Allergy Verified 11/01/23 14:12 Active Medications: Current Medications Lactated Ringer's (Lr) 1,000 mls @ 100 mls/hr IVCONT .Q10H TREVOR Exam Height,Weight and Vital Signs: Height 5 ft 9 in Weight 86.75 kg Last Vital Signs Temp 98.1 F 11/08/23 08:29 Pulse 60 11/08/23 08:29 Resp 16 11/08/23 08:29 BP 150/76 H 11/08/23 08:29 Pulse Ox 98 11/08/23 08:29 O2 Del Method Room Air 11/08/23 08:29 Pertinent Lab Results Pertinent Lab Results: Laboratory Tests 11/08/23 08:08 Urine Test NEGATIVE Airway Mallampati Class: II (gums bleeding) TM Dist: >3cm Neck ROM: Full Heart: rrr Lungs: cta Assessment and Plan Assessment Anesthesia Assessment: Anesthesia Plan Discussed and Chart Reviewed Final Anesthetic Review Family History of Problems with Anesthesia: No History of Problems with Anesthesia: No NPO: Yes ASA Class: II Final Preanesthetic Review: No Changes in Pt Med Stat, Meds/Allgs Chart Reviewed and Consent Obtained/Reviewed Patient Risk: Low Procedure Risk: Low Anesthetic Plan Anesthetic Plan: MAC: Disposition: Standard PACU
[2023-11-08] MEDS: Lactated Ringers 1,000 ML 100 ML IVCONT (08:43)
--- NOTE | 2023-11-08 09:44 | HO.OPN-COLON ---
Colonoscopy Operative Note Operative Note Date of Service: 11/08/23 Narrative: Operative Information Procedure Description: EGD, Colonoscopy Indication: anemia Anesthesia: MAC FLEXIBLE TRANSORAL UPPER GASTROINTESTINAL ENDOSCOPY AND COLONOSCOPY PROCEDURE NOTE UPPER ENDOSCOPY Consent: Indications for the procedure and potential complications of bleeding, perforation, reaction to medications and missed diagnosis were discussed with the patient and informed consent was obtained. Instrument: Olympus GIF H 190 J mid size upper endoscope Monitoring: Vital signs and clinical assessment, continuous EKG monitoring, Pulse oximetry, Carbon Dioxide monitoring and blood pressure monitoring were done throughout the procedure. Procedure: The patient was placed in the left lateral decubitis position and pre-procedure medications were administered and a bite block was placed. The endoscope was inserted into the mouth and advanced under direct vision to the third part of duodenum. A careful inspection was made as the upper endoscope was withdrawn including a retroflexed examination of the proximal stomach; Findings and interventions are described below. Findings: Larynx:normal Esophagus: GE junction at 40 cm, diaphragm hiatus at 40 cm, 1-2 flat varices seen Stomach: patchy erythema. Biopsies were obtained. Grade 2 flap valve on retroflexed examination of the cardia. x 2 polyps in the mid stomach, 6-8 mm, one of them was oozing, removed with cold snare and then 3 clips applied to the area of the oozing polyp. no gastric varices seen Duodenum: Normal bulb and descending duodenum, bx taken Intervention: Biopsies as noted above, cold snare COLONOSCOPY Instrument: Olympus variable stiffness pediatric scope 190L Colonoscopy Monitoring: Vital signs and clinical assessment, continuous EKG monitoring, Pulse oximetry, Carbon Dioxide monitoring and blood pressure monitoring were done throughout the procedure. Colon withdrawal time was 7 minutes. Procedure: The patient was placed in the left lateral decubitis position and pre-procedure medications were administered. After a digital rectal examination of the ano-rectum, the video colonoscope was inserted into the rectum and advanced through the colon to the cecum/TI. The colonoscope was slowly withdrawn in a retrograde panoramic fashion and the colon mucosa was carefully examined including a retroflexed view of the rectum. Findings and interventions are described below. Procedure Difficulty:moderate Findings: Terminal Ileum-normal Random colon bx taken Cecum:normal Ascending Colon: normal Transverse Colon -normal Descending Colon:normal Sigmoid Colon: normal Rectum: Retroflexion with small internal hemorrhoids, grade I Anorectum - normal Colon preparation: Mclean Bowel Preparation Scale Right colon; 2 Transverse colon: 2 Left colon; 2 (0 = Unprepared colon segment with mucosa not seen due to solid stool that cannot be cleared. 1 = Portion of mucosa of the colon segment seen, but other areas of the colon segment not well seen due to staining, residual stool and/or opaque liquid. 2 = Minor amount of residual staining, small fragments of stool and/or opaque liquid, but mucosa of colon segment seen well. 3 = Entire mucosa of colon segment seen well with no residual staining, small fragments of stool or opaque liquid) Impression and Post Procedure Diagnosis: Endoscopy Findings: flat varices gastric polyps gastritis Colonoscopy Findings: internal hemorrhoids Plan: Await Pathology results Repeat Colonoscopy in 10 years or earlier if clinically indicated High fiber diet leaflet avoid straining at stool, epsom salts and sitz bath, anusol supps or cream Above findings were reviewed with the patient and relevant handouts were provided if indicated.
[2023-11-08 09:47] VITALS: BP 106/54; PULSE 64; RESP 16; TEMP 36.2; O2SAT 91
[2023-11-08 10:02] VITALS: BP 121/70; PULSE 66; RESP 18; TEMP 36.1; O2SAT 97
== END 2023-11-08 10:32 | disposition home or self-care (01) ==
PROVIDERS: Nurse Practitioner; PCP Physician Assistant; Visit Provider Internal Medicine Gastroenterology
PROC: (CPT 45380; principal; 2023-11-08 09:20)
DX: D64.9 Anemia, unspecified (principal); K64.0 First degree hemorrhoids; K21.9 Gastro-esophageal reflux disease without esophagitis; K31.7 Polyp of stomach and duodenum; K29.50 Unspecified chronic gastritis without bleeding; I85.00 Esophageal varices without bleeding; K44.9 Diaphragmatic hernia without obstruction or gangrene; R16.1 Splenomegaly, not elsewhere classified; F41.9 Anxiety disorder, unspecified; Z79.899 Other long term (current) drug therapy
CPT/HCPCS: 45380; 43251; 43239; 81025; 88305; 88313; 88342; J2704

== ENCOUNTER → 2023-11-08 07:54 | Outpatient (BNV) | payer OTHER, SELFPAY | PROVIDERS: PCP Physician Assistant; Visit Provider Internal Medicine Gastroenterology | DX: D64.9 Anemia, unspecified (principal); I85.00 Esophageal varices without bleeding; K29.70 Gastritis, unspecified, without bleeding; K31.7 Polyp of stomach and duodenum; K64.8 Other hemorrhoids | CPT/HCPCS: 43239; 43251; 45380 ==

== ENCOUNTER 2023-11-22 09:23 | Outpatient (REF) | payer OTHER, SELFPAY ==
--- NOTE | ~2023-11-22 | US_ITS ---
EXAMINATION: US ABDOMEN LIMITED WITH LIVER ELASTOGRAPHY CLINICAL INFORMATION: Elevated transaminase. COMPARISON: None available. TECHNIQUE: Real-time imaging of the abdominal viscera. Noninvasive ultrasound liver fibrosis assessment is performed using Arlet ElastPQ point quantification shear wave elastography (pSWE) with a 5 MHz transducer. Multiple elastography samples are obtained. FINDINGS: PANCREAS: The visualized pancreatic head and body are normal in appearance. The remainder of the pancreas is obscured from visualization by the overlying bowel gas. LIVER: The liver is markedly enlarged with increased echogenicity consistent with steatosis. No focal lesion or intrahepatic biliary duct dilatation. The right lobe measures 24.1 cm in length. The left lobe measures 18.6 cm in length. Portal flow is hepatopedal. Shear wave elastography provides a median stiffness of 2.21 m/s (reference: normal median stiffness is 0.81 - 1.22 m/s). The IQR/median stiffness to assess sampling precision is 0.15 (reference: optimal IQR/median stiffness is under 0.3). GALLBLADDER: Surgically removed. COMMON BILE DUCT: Normal in caliber measuring 0.5 cm in diameter. RIGHT KIDNEY: Normal. No hydronephrosis. No renal calculi or focal parenchymal lesions. The kidney measures 11.5 cm in maximum dimension. FREE FLUID: None. US/US abdomen rhodes w elastography IMPRESSION: 1. Markedly enlarged fatty liver. 2. Elastography: Liver elastography measurements are consistent with a high risk for clinically significant liver fibrosis (METAVIR Stage F3-F4). Electronically signed by: Ervin Nelson MD 11/30/2023 09:56 PM EDT
== END 2023-11-22 09:24 | disposition home or self-care (01) ==
LOC: HO.US 09:23
PROVIDERS: PCP Physician Assistant; Visit Provider Nurse Practitioner Family
DX: R74.01 Elevation of levels of liver transaminase levels (principal)
CPT/HCPCS: 76705; 76981

== ENCOUNTER 2023-11-22 11:15 | Outpatient (RCR) | payer OTHER, SELFPAY ==
[2023-10-31 11:03] VITALS: BP 120/66; PULSE 66; RESP 18; TEMP 37; O2SAT 100; BMI 27.9
[2023-10-31] MEDS: Iron Sucrose Complex 200 MG in 0.9 % Sodium Chloride 100 ML 440 MG IV (11:24)
[2023-10-31] MEDS: 0.9 % Sodium Chloride Flush 10 ML SYRINGE 5 ML IVFLUSH (11:41)
[2023-11-09 08:07] VITALS: BP 100/73; PULSE 62; RESP 16; TEMP 36.9; O2SAT 97
[2023-11-09] MEDS: 0.9 % Sodium Chloride Flush 10 ML SYRINGE 5 ML IVFLUSH (08:24)
[2023-11-09] MEDS: Iron Sucrose Complex 200 MG in 0.9 % Sodium Chloride 100 ML 440 MG IV (08:26)
[2023-11-09] MEDS: Ondansetron ODT 4 MG TAB.RAPDIS TRANSLINGU (08:59)
[2023-11-14 10:35] VITALS: BP 132/68; PULSE 57; RESP 18; TEMP 36.6; O2SAT 100
[2023-11-14] MEDS: Iron Sucrose Complex 200 MG in 0.9 % Sodium Chloride 100 ML 440 MG IV (10:51)
[2023-11-14] MEDS: 0.9 % Sodium Chloride Flush 10 ML SYRINGE 5 ML IVFLUSH (11:08)
[2023-11-22 11:12] VITALS: BP 139/74; PULSE 63; RESP 16; TEMP 36.6; O2SAT 98
[2023-11-22] MEDS: Iron Sucrose Complex 200 MG in 0.9 % Sodium Chloride 100 ML 440 MG IV (11:22)
[2023-11-22] MEDS: 0.9 % Sodium Chloride Flush 10 ML SYRINGE 5 ML IVFLUSH (11:38)
--- NOTE | 2023-11-22 11:43 | HO.INF ---
11:40am- lab in blood drawn.
[2023-11-22 11:49] LABS: MANUAL DIFF FLAG NO
[2023-11-22 12:06] LABS: Basophils Percent Auto 0.7 % (0-2); Eosinophils Absolute Auto 0.2 X10*3/uL (0.0-0.4); Eosinophils Percent Auto 3.8 % (0-4); Hematocrit 33.2 % (37.0-47.0); Hemoglobin 10.7 g/dl (12.0-16.0); Imm Gran Abs Auto 0.02 X10*3/uL (0.00-0.03); Imm Gran Pct Auto 0.4 % (0.0-0.4); Lymphocytes Absolute Auto 1.6 X10*3/uL (1.2-4.9); Lymphocytes Percent Auto 29.9 % (20-40); Mean Corpuscular HGB Conc 32.2 g/dl (31.0-35.0); Mean Corpuscular Hemoglobin 28.5 pg (27.0-33.0); Mean Corpuscular Volume 88.5 fL (80.0-98.0); Mean Platelet Volume 10.3 fL (9.4-12.3); Monocytes Absolute Auto 0.3 X10*3/uL (0.1-1.2); Monocytes Percent Auto 6.2 % (2-11); Neutrophils Absolute Auto 3.2 x10*3/uL (2.0-8.3); Platelet Count 175 X10*3/uL (160-400); Red Blood Count 3.75 X10*6/uL (4.20-5.50); Red Cell Distribution Width 17.7 % (11.0-16.0); White Blood Count 5.5 X10*3/uL (4.8-10.8)
[2023-11-22 12:26] LABS: Ferritin 149 ng/mL (10-122)
== END 2023-11-22 11:51 | disposition home or self-care (01) ==
LOC: HO.INF 11:15
PROVIDERS: Visit Provider Internal Medicine Medical Oncology
DX: D64.9 Anemia, unspecified (principal)
CPT/HCPCS: 36415; 82728; 85025; 96365; 96374; 96375; J1756

== ENCOUNTER 2023-12-04 11:47 | Day surgery (SDC) | payer OTHER, SELFPAY ==
[2023-12-04] VITALS (7 sets, daily range): BP systolic 119–140; BP diastolic 66–74; PULSE 58–62; RESP 12–16; TEMP 36.1–36.3; O2SAT 95–98; BMI 27.5
[2023-12-04 12:17] LABS: UPreg QC Valid YES; Urine Pregnancy NEGATIVE (NEGATIVE)
[2023-12-04] MEDS: Lactated Ringers 1,000 ML 100 ML IVCONT (12:38)
--- NOTE | 2023-12-04 13:00 | HO.ANESPROP2 ---
Documented by User: Oriana Macedo NP 11/30/23 13:35 HPI - Anesthesia Eval Consult details Narrative: 33yo F for Bone Marrow Biopsy Hold 1 Hr s/p EGD, [place] 10/2023 with [facility] Active Problems Active Problems: All Active Problems Encounter for screening examination for sexually transmitted disease (Acute) Breast cancer screening (Acute) control counseling (Acute) Cervical cancer screening (Acute) Well woman exam with routine gynecological exam (Acute) Coccyx pain (Acute) Normochromic normocytic anemia (Acute) GERD (gastroesophageal reflux disease) (Acute) Total bilirubin, elevated (Acute) Anemia (Acute) HTN (hypertension) (Acute) MIRYAM (generalized anxiety disorder) (Acute) Past Medical History Medical History Anemia Family History Family History Father Diabetes Maternal Grandmother Breast cancer Family/Other Lymphoma Family history of problems with anesthesia: No Surgical History Surgical History Hx of colonoscopy History of esophagogastroduodenoscopy (EGD) Hx of cholecystectomy History of Problems with Anesthesia: No Social History Social History Household Members: Family Housing: Apartment Are you a primary animal care service worker to a significant other at home: No Do you presently have visiting nurse or other home services: No Alcohol intake: current Alcohol intake frequency: holidays/special occasions only Alcohol type: beer Patient Tobacco Use Status: Never used Tobacco e-Cigarette/Vaping Use: Never Used Second Hand Smoke Exposure: No service: No Current occupational status: employed Current occupation: [employer] Cognitive needs: No Hearing needs: No Vision needs: No Meds Allergies Allergy/AdvReac Type Severity Reaction Status Date / Time No Known Allergies Allergy Verified 12/04/23 12:08 Exam Pertinent Lab Results Pertinent Lab Results: Laboratory Tests 11/21/23 11/22/23 14:28 11:45 WBC 5.5 Hgb 10.7 L Hct 33.2 L Plt Count 175 Sodium 140 Potassium 4.1 Chloride 110 H Carbon Dioxide 20 L BUN 6 L Creatinine 0.80 Assessment and Plan Assessment Anesthesia Assessment: Chart Reviewed Final Anesthetic Review Family History of Problems with Anesthesia: No History of Problems with Anesthesia: No Documented by User: Renée Pike DO 12/04/23 13:06 [facility] Past Medical History Medical History Anemia Family History Family History Father Diabetes Maternal Grandmother Breast cancer Family/Other Lymphoma Family history of problems with anesthesia: No Surgical History Surgical History Hx of colonoscopy History of esophagogastroduodenoscopy (EGD) Hx of cholecystectomy History of Problems with Anesthesia: No Social History Social History Household Members: Family Housing: Apartment Are you a primary animal care service worker to a significant other at home: No Do you presently have visiting nurse or other home services: No Alcohol intake: current Alcohol intake frequency: holidays/special occasions only Alcohol type: beer Patient Tobacco Use Status: Never used Tobacco e-Cigarette/Vaping Use: Never Used Second Hand Smoke Exposure: No service: No Current occupational status: employed Current occupation: [employer] Cognitive needs: No Hearing needs: No Vision needs: No Meds Allergies Allergy/AdvReac Type Severity Reaction Status Date / Time No Known Allergies Allergy Verified 12/04/23 12:08 Exam Exam Date and Time: 12/04/23 1300 Height,Weight and Vital Signs: Height 5 ft 9 in Weight 84.368 kg Vital Signs Temperature 97.4 F 12/04/23 12:36 Pulse Rate 58 12/04/23 12:36 Respiratory Rate 14 12/04/23 12:36 Blood Pressure 140/71 H 12/04/23 12:36 Pulse Oximetry 98 12/04/23 12:36 Oxygen Delivery Method Room Air 12/04/23 12:36 Temperature 97.4 F 12/04/23 12:36 Pulse Rate 58 12/04/23 12:36 Respiratory Rate 14 12/04/23 12:36 Blood Pressure 140/71 H 12/04/23 12:36 Pulse Oximetry 98 12/04/23 12:36 Oxygen Delivery Method Room Air 12/04/23 12:36 Airway Mallampati Class: I TM Dist: >3cm Neck ROM: Full Loose/Missing/Broken Teeth: No (patient denies any loose or broken teeth) Heart: S1S2 Lungs: CTAB Assessment and Plan Assessment Anesthesia Assessment: Anesthesia Plan Discussed and Chart Reviewed Final Anesthetic Review Family History of Problems with Anesthesia: No History of Problems with Anesthesia: No NPO: Yes ASA Class: II Final Preanesthetic Review: No Changes in Pt Med Stat, Meds/Allgs Chart Reviewed, Consent Obtained/Reviewed and Anes Risks/Benef Reviewed Patient Risk: Low Procedure Risk: Low Anesthetic Plan Anesthetic Plan: GA, MAC: and Agree w/ Assess. and Plan Disposition: Standard PACU
[2023-12-04] MEDS: Iron Sucrose Complex 200 MG in 0.9 % Sodium Chloride 100 ML 440 MG IV (13:02)
[2023-12-04 14:17] LABS: Bone Marrow SEE SEPARATE REPORT
--- NOTE | 2023-12-04 14:18 | PM.HEMONCBM ---
Bone Marrow Aspiration - Bone Marrow Aspiration Procedure:: *Service Date: [12/04/23] Bone marrow aspirate and biopsy. 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 Surgeon:: Esteban Guerra. Anesthesia:: MAC. Consent:: Informed consent obtained from the patient for the procedure. Pros and cons of biopsy explained. The patient was willing to proceed with the procedure under local anesthesia. Procedure in Detail:: *Service Date: 12/04/23. *Procedure: Bone marrow aspirate and biopsy. *Pre Op Dx: Schwachman- Karen Syndrome. *Post Op Dx: Schwachman- Karen Syndrome. *Surgeon: Esteban Guerra. The patient was positioned supine. The left posterior superior iliac spine prepped and draped. Patient was anesthetized under MAC. Under aseptic precautions, 5 ml of 1% lidocaine used for local anesthesia. Bone marrow aspirate was taken. Biopsy was performed with the Jamshidi needle, without any complications. Specimens were sent for Levin stain, flow cytometry and cytogenetics. Biopsy was sent for histology. The patient tolerated the procedure well. Bandage was applied and patient was positioned on her back for 10 to 15 minutes after the procedure. The patient was advised to call us if she develops any pain or swelling at the surgical site. Follow up in 2 weeks.
[2023-12-04 14:55] LABS: Eos%MD 4.2 %; Hematocrit 31.5 % (37.0-47.0); Hemoglobin 10.4 g/dl (12.0-16.0); IG%MD 0.2 %; Lymph%MD 37.1 %; Mean Corpuscular Hemoglobin 29.4 pg (27.0-33.0); Mean Platelet Volume 10.5 fL (9.4-12.3); Mono%MD 5.4 %; Neut%MD 52.1 %; Platelet Count 152 X10*3/uL (160-400); Red Blood Count 3.54 X10*6/uL (4.20-5.50); Red Cell Distribution Width 15.9 % (11.0-16.0); White Blood Count 4.1 X10*3/uL (4.8-10.8)
[2023-12-04 15:27] LABS: Atypical Lymph Absolute Manual 0.1 x10*3/uL; Atypical Lymphs Percent Manual 2 % (0-6); Basophils Percent Manual 1 % (0-2); Eosinophils Absolute Manual 0.1 X10*3/uL (0.0-0.4); Eosinophils Percent Manual 2 % (0-4); Lymphocytes Absolute Manual 1.4 X10*3/uL (1.2-4.9); Lymphocytes Percent Manual 34 % (20-40); Monocytes Absolute Manual 0.2 X10*3/uL (0.1-1.2); Monocytes Percent Manual 4 % (2-11); Neutrophils Percent Manual 57 % (45-73)
[2023-12-04 15:28] LABS: Platelet Estimate NORMAL (NORMAL); Platelet Morphology Comment NORMAL; RBC Morphology NOTED; Tear Drop Cells 1+ (0-2) /OIF
[2023-12-04 15:29] LABS: Neutrophils Absolute Manual 2.3 X10*3/uL (2.0-8.3)
[2023-12-04 17:18] LABS: Alanine Aminotransferase 20 U/L (0-31); Albumin Level 3.9 g/dL (3.5-5.0); Alkaline Phosphatase 78 U/L (39-117); Anion Gap 13 (12-20); Aspartate Amino Transferase 40 U/L (5-31); Blood Urea Nitrogen 9 mg/dL (9-16); Calcium 9.5 mg/dL (8.4-10.2); Carbon Dioxide 24 mmol/L (22-29); Chloride 110 mmol/L (96-108); Estimated Glomerular Filt Rate > 60; Glucose Random 92 mg/dL (60-115); Potassium 4.3 mmol/L (3.3-5.1); Sodium 143 mmol/L (135-145)
== END 2023-12-04 15:10 | disposition home or self-care (01) ==
PROVIDERS: Nurse Practitioner; Pathology Anatomic Pathology & Clinical Pathology; PCP Physician Assistant; Visit Provider Internal Medicine Medical Oncology
PROC: (CPT 38221; principal; 2023-12-04 13:30)
DX: D64.9 Anemia, unspecified (principal); D61 Other aplastic anemias and other bone marrow failure syndromes; R23.3 Spontaneous ecchymoses; Z79.899 Other long term (current) drug therapy; Z90.49 Acquired absence of other specified parts of digestive tract
CPT/HCPCS: 38222; 36415; 80053; 81025; 81455; 85007; 85027; 88184; 88185; 88237; 88264; 88305; 88311; 88313; J1100; J1596; J1642; J1756; J2250; J2405; J2704; J3010

== ENCOUNTER → 2023-12-04 11:47 | Outpatient (BNV) | payer OTHER, SELFPAY | PROVIDERS: PCP Physician Assistant; Visit Provider Internal Medicine Medical Oncology | DX: D61 Other aplastic anemias and other bone marrow failure syndromes (principal) | CPT/HCPCS: 38222 ==

== ENCOUNTER 2023-12-19 10:25 | Outpatient (AMB) | payer OTHER, SELFPAY ==
[2023-12-19 10:39] VITALS: BP 138/80; PULSE 64; RESP 16; O2SAT 96; BMI 27.6
--- NOTE | 2023-12-19 10:39 | A.OFFPC_ITS ---
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: No Accompanied by: Self / Same As Patient Allergies No Known Allergies Allergy (Verified 12/19/23 13:06) Medication List - Last Reconciled 12/19/23 by Abdi Lester PA-C blood pressure monitor take blood pressure reading once a day as needed cholecalciferol (vitamin D3) 50 mcg PO DAILY ferrous sulfate 325 mg PO BID 90 days folic acid 1 mg PO DAILY lorazepam 0.5 mg PO BID PRN 5 days omeprazole 20 mg PO DAILY ondansetron 4 mg PO Q6H potassium chloride ER 20 mEq PO BID sertraline 50 mg PO DAILY 30 days tramadol 50 mg PO Q8H PRN Tobacco use date assessed: 09/21/23 Dental Screening Dental Screen Date: 09/21/23 HPI Follow Up HPI Details Patient is a 33-year-old female here today for follow-up visit. At last visit we discussed her mental health and started on SSRI therapy sertraline 50 mg. Labs were abnormal 4 normocytic anemia and hypokalemia. She has underwent a repeat bone marrow biopsy and some genetic testing and will be following up with Hematology. She has been set up with iron infusions in B12 injections. She reports she is feeling much better physically and emotionally. .. Liver enzymes elevated thus will send for ultrasound which did show fatty liver and enlarged spleen. She did get another liver ultrasound elastography that did show high-risk for liver fibrosis. Has upcoming appointment with Kimberly medina to discuss her ultrasound imaging results. She denies any excessive alcohol intake. Of note liver enzymes have gotten better. .. Esophagitis: Did have endoscopy recently that did show esophagitis. Continues on omeprazole. She denies any further heartburn type symptoms ... Generalized anxiety disorder: She continues on sertraline 50 mg which she reports she has noted a difference in her anxious symptoms. Would like to continue medication for now. She has use lorazepam 0.5 mg on very limited basis. Laboratory Tests 12/04/23 12/04/23 12:00 14:48 RBC 3.54 L Hgb 10.4 L Creatinine 0.74 AST 40 H ALT [address] NEGATIVE PFSH Medical History Bone marrow disorder Anemia Surgical History Hx of colonoscopy History of esophagogastroduodenoscopy (EGD) Hx of cholecystectomy Family History Father Diabetes Maternal Grandmother Breast cancer Family/Other Lymphoma Social History Household Members: Family Housing: Apartment Are you a primary personal caregiver to a significant other at home: No Do you presently have visiting nurse or other home services: No Alcohol intake: current Alcohol intake frequency: holidays/special occasions only Alcohol type: beer Patient Tobacco Use Status: Never used Tobacco e-Cigarette/Vaping Use: Never Used Second Hand Smoke Exposure: No service: No Current occupational status: employed Current occupation: [employer] Cognitive needs: No Hearing needs: No Vision needs: No Female Reproductive History Menstrual Age of Menarche: 10 Questionnaire Thrive Questionnaire Date Thrive assessed: 09/21/23 Are you currently unemployed and looking for a job?: No MIRYAM-7 AMB Questionnaire MIRYAM-7 Date MIRYAM - 7 assessed: 09/21/23 Source: Developed by Drs. Amadeo Rangel, Rosa Isela Cameron, Chris Isabel and colleagues, with an educational pino from [employer]. Review of Systems Const Denies headache(s) Eyes Denies loss of vision ENT Denies vertigo, Denies dizziness, Denies headache(s) and Denies sore throat Card Denies chest pain, Denies leg edema and Denies lightheadedness Resp Denies cough, Denies hemoptysis and Denies wheezing GI Denies abdominal pain, Denies melena, Denies constipation, Denies diarrhea and Denies vomiting Denies urinary frequency, Denies dysuria and Denies urinary urgency Musc Denies arthralgias, Denies joint swelling, Denies numbness and Denies tingling Neuro Denies Abnormal speech present, Denies behavioral changes, Denies vertigo, Denies dizziness, Denies headache(s), Denies loss of vision, Denies memory loss, Denies numbness and Denies tingling Psych Denies anxiety, Denies behavioral changes, Denies depression, Denies memory loss and Denies panic attacks Felipe/Lymph Denies easy bleeding and Denies easy bruising Aller/Immun Denies wheezing Physical exam (Primary Care) Vital Signs: Last Vital Signs Pulse 64 12/19/23 10:39 Resp 16 12/19/23 10:39 BP 138/80 12/19/23 10:39 Pulse Ox 96 12/19/23 10:39 Oxygen Delivery Method Room Air 12/19/23 10:39 BMI result Body Mass Index 27.6 Tobacco/Smoking Status: Tobacco use Status Tobacco use date assessed 09/21/23 12/19/23 10:43 Patient Tobacco Use Status Never used Tobacco 12/19/23 10:43 e-Cigarette/Vaping Use Never Used 12/19/23 10:43 Thrive Assessment: Date of Thrive Assessment Date Thrive assessed 09/21/23 12/19/23 10:43 Const General: healthy appearing, no acute distress, alert and awake Nutritional Appearance: well nourished Orientation/consciousness: oriented to person, oriented to place and oriented to time HENMT Ears: TM's normal bilaterally General nose exam: Normal nasal mucous membranes and turbinates present Eyes Conjunctivae: conjunctivae normal Sclerae: sclerae normal Pupils: Equal, round and reactive pupils present Neck Neck: Yes no lymphadenopathy and Yes no JVD Thyroid: Thyroid normal Carotids: no bruits Resp Effort & Inspection: normal respiratory effort and not tachypneic Auscultation: no crackles, no rales, no rhonchi and no wheezes Cardio Rate: regular rate Rhythm: regular rhythm Heart sounds: no murmurs and normal S1 and S2 GI Palpation (GI): Soft to palpation, nontender, no hepatomegaly and no splenomegaly Auscultation: normal bowel sounds Skin General skin exam: no rashes or lesions noted and dry skin Neuro General: oriented to person, oriented to place and oriented to time Cranial nerves: Yes Equal, round and reactive pupils present Speech: No Abnormal speech present Gait exam (Neuro): Normal gait present Motor exam (neuro): no tremor noted Extrem Right upper extremity: full ROM Left upper extremity: full ROM Right lower extremity: full ROM; no edema Left lower extremity: full ROM; no edema Psych Mental Status: mental status grossly normal Speech and movement: Normal speech and movement present Affect: normal affect Attitude: cooperative Thought process: Normal thought process present Assessment and Plan Assessment & Plan (1) MIRYAM (generalized anxiety disorder): Code(s): F41.1 - Generalized anxiety disorder Plan: As per HPI patient is anxiety seems to have been better. Her health issues are being investigated which helps her anxiety as well. She would like to continue on sertraline 50 mg for now. (2) Normochromic normocytic anemia: Code(s): D64.9 - Anemia, unspecified Plan: Now followed by Hematology. Has been started on iron and folic acid which she feels has been helpful. She has been undergoing iron transfusions and B12 monthly injections. Hemoglobin has been trending up and patient reports she feels great (3) HTN (hypertension): Code(s): I10 - Essential (primary) hypertension Qualifiers: Hypertension type: primary hypertension Qualified Code(s): I10 - Essential (primary) hypertension Plan: Patient's blood pressure much improved today in office. She has been able to lose weight and her anxiety seems much better manage at this time. Will continue without medication for the control of her blood pressure and continue working on lifestyle and dietary modifications. Goal blood pressures to remain below 140/90 consistently. (4) Liver fibrosis: Code(s): K74.00 - Hepatic fibrosis, unspecified Plan: As per HPI most recent liver ultrasound showing high-risk for liver fibrosis. Fortunately since treating her anemia and taking supplemental vitamins her liver enzymes have been trending down. She will be following up with [place] [facility] today. Medications: Refilled cholecalciferol (vitamin D3) 50 mcg PO DAILY 90 caps 3RF R79.89 - Other specified abnormal findings of blood chemistry ferrous sulfate 325 mg PO BID 180 tabs 1RF 90 days D50.9 - Iron deficiency anemia, unspecified, D64.9 - Anemia, unspecified folic acid 1 mg PO DAILY 90 tabs 4RF omeprazole 20 mg PO DAILY 90 caps 1RF K21.9 - Gastro-esophageal reflux disease without esophagitis Discontinued tramadol Discontinued Reason: Doctor's Order 50 mg PO Q8H PRN 10 tabs 0RF Breakthrough Pain, Moderate Coding Level of Care Code Est Pt Level 4 (32917) Diagnoses MIRYAM (generalized anxiety disorder) F41.1 Normochromic normocytic anemia D64.9 Primary hypertension I10 Hypertension type: primary hypertension Liver fibrosis K74.00
== END 2023-12-19 11:23 | disposition home or self-care (01) ==
PROVIDERS: PCP Physician Assistant; Visit Provider Physician Assistant
DX: F41.1 Generalized anxiety disorder (principal); D64.9 Anemia, unspecified; I10 Essential (primary) hypertension; K74.00 Hepatic fibrosis, unspecified

== ENCOUNTER 2023-12-19 10:25 | Outpatient (REF) | payer OTHER, SELFPAY ==
[2023-12-19 16:39] LABS: Monotest Negative (Negative)
[2023-12-19 16:49] LABS: Alanine Aminotransferase 19 U/L (0-31); Albumin Level 4.3 g/dL (3.5-5.0); Alkaline Phosphatase 97 U/L (39-117); Aspartate Amino Transferase 31 U/L (5-31); Bilirubin Direct 0.4 mg/dL (0.0-0.5); Bilirubin Total 0.8 mg/dL (0.0-1.0); C Reactive Protein 0.31 mg/dL (< or = 0.50); Total Protein 7.8 g/dL (6.5-8.0)
[2023-12-20 10:33] LABS: Ceruloplasmin 25 mg/dL (14-48)
[2023-12-23 00:18] LABS: Liver Kidney Microsomal Ab <=20.0 U (<=20.0)
[2023-12-24 12:49] LABS: Smooth Muscle Antibody <20 U (<20)
[2023-12-25 10:38] LABS: Mitochondrial Antibodies NEGATIVE (NEGATIVE)
[2023-12-25 23:38] LABS: FIB-ALT 16 U/L (6-29); FIB-Alpha-2-Macroglobulin 308 mg/dL (106-279); FIB-Apolipoprotein A1 92 mg/dL (101-198); FIB-GGT 366 U/L (3-50); FIB-Haptoglobin 73 mg/dL (43-212); FIB-Total Bilirubin 0.7 mg/dL (0.2-1.2); Liver Fibrosis Score 0.77; Liver Fibrosis Stage F4; Nec Inflam Act Grade A0; Nec Inflam Act Score 0.11
== END 2023-12-19 10:26 | disposition home or self-care (01) ==
LOC: HO.LAB 10:25
PROVIDERS: PCP Physician Assistant; Referring Provider Nurse Practitioner Family; Visit Provider Physician Assistant
DX: K74.00 Hepatic fibrosis, unspecified (principal); D64.9 Anemia, unspecified; K74.60 Unspecified cirrhosis of liver; I85.00 Esophageal varices without bleeding; K58.9 Irritable bowel syndrome, unspecified; R79.89 Other specified abnormal findings of blood chemistry; R74.8 Abnormal levels of other serum enzymes; R74.01 Elevation of levels of liver transaminase levels; R10.9 Unspecified abdominal pain; K76.0 Fatty (change of) liver, not elsewhere classified; Z87.898 Personal history of other specified conditions; Z86.19 Personal history of other infectious and parasitic diseases; F41.1 Generalized anxiety disorder; I10 Essential (primary) hypertension
CPT/HCPCS: 36415; 80076; 81596; 82105; 82390; 84134; 86015; 86140; 86308; 86376; 86381; 99212

== ENCOUNTER 2023-12-19 13:04 | Outpatient (AMB) | payer OTHER, SELFPAY ==
--- NOTE | 2023-12-19 13:06 | A.OFFVIS_ITS ---
Vital Signs 12/19/23 13:07 Height 5 ft 9 in Weight 186 lb 1.122 oz BMI 27.5 BP 142/70 H Blood Pressure Location Rt brachial Position Sitting Pulse 62 Pulse Source Pulse Oximeter Pulse Oximetry (%) 100 Oxygen Delivery Method Room Air Intake Visit Reasons: US results Intake Note: Kerri presents in office today for a scheduled FUV to discuss recent US results CC: Pt reports that they have been following their treatment plan as intended and have been noticing that they have been feeling better and their condition has improved. Pt denies the need for any refills as they have just seen their PCP and had their refills done through them. 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 Will do liver fibrosis panel as well as liver elastography ultrasound. Repeat liver panel today. Patient reports that she is no longer drinking alcohol. Advised avoiding alcohol as well as food high in fat. More protein and vegetables. Will check vitamin B12, folate vitamin-D level. Pending results we might order extra testing to rule out any autoimmune disorders. Patient will return to the office in 2 weeks, sooner on as needed basis. She is agreeable to this plan and verbalizes understanding of instructions. She was given the opportunity to ask questions and all questions answered. ? Thank you for allowing me to participate in her care Orders Orders Vitamin B12 and Folate Today R19.7 Vitamin D 25-OH (D2 and D3) Today E55.9 Liver Fibrosis Pnl Today R74.8 US abdomen rhodes w elastography Today R74.01 Liver Panel Today R74.01 UPPER ENDOSCOPY AND COLONOSCOPY Findings: Larynx:normal Esophagus: GE junction at 40 cm, diaphragm hiatus at 40 cm, 1-2 flat varices seen Stomach: patchy erythema. Biopsies were obtained. Grade 2 flap valve on retroflexed examination of the cardia. x 2 polyps in the mid stomach, 6-8 mm, one of them was oozing, removed with cold snare and then 3 clips applied to the area of the oozing polyp. no gastric varices seen Duodenum: Normal bulb and descending duodenum, bx taken Intervention: Biopsies as noted above, cold snare COLONOSCOPY Instrument: Olympus variable stiffness pediatric scope 190L Colonoscopy Monitoring: Vital signs and clinical assessment, continuous EKG monitoring, Pulse oximetry, Carbon Dioxide monitoring and blood pressure monitoring were done throughout the procedure. Colon withdrawal time was 7 minutes. Procedure: The patient was placed in the left lateral decubitis position and pre-procedure medications were administered. After a digital rectal examination of the ano-rectum, the video colonoscope was inserted into the rectum and advanced through the colon to the cecum/TI. The colonoscope was slowly withdrawn in a retrograde panoramic fashion and the colon mucosa was carefully examined including a retroflexed view of the rectum. Findings and interventions are described below. Procedure Difficulty:moderate Findings: Terminal Ileum-normal Random colon bx taken Cecum:normal Ascending Colon: normal Transverse Colon -normal Descending Colon:normal Sigmoid Colon: normal Rectum: Retroflexion with small internal hemorrhoids, grade I Anorectum - normal Colon preparation: [place] Bowel Preparation Scale Right colon; 2 Transverse colon: 2 Left colon; 2 (0 = Unprepared colon segment with mucosa not seen due to solid stool that cannot be cleared. 1 = Portion of mucosa of the colon segment seen, but other areas of the colon segment not well seen due to staining, residual stool and/or opaque liquid. 2 = Minor amount of residual staining, small fragments of stool and/or opaque liquid, but mucosa of colon segment seen well. 3 = Entire mucosa of colon segment seen well with no residual staining, small fragments of stool or opaque liquid) Impression and Post Procedure Diagnosis: Endoscopy Findings: flat varices gastric polyps gastritis Colonoscopy Findings: internal hemorrhoids Plan: Await Pathology results Repeat Colonoscopy in 10 years or earlier if clinically indicated High fiber diet leaflet avoid straining at stool, epsom salts and sitz bath, anusol supps or cream PATHOLOGY RESULTS Addendum Addendum #1 Immunostains for H. pylori on B and C are negative. Control stains appropriately. Electronically Signed By: Breonna Collier 11/14/23 0916 Diagnosis A. Duodenum, biopsy: Duodenal mucosa with preserved villi and no specific change. B. Stomach, biopsy: Gastric antral and body mucosa with mild reactive changes and minimal chronic inactive gastritis; negative for intestinal metaplasia and dysplasia. C. Gastric polyp: Fundic gland polyp with minimal chronic inactive gastritis; negative for intestinal metaplasia and dysplasia. D. Colon, random, biopsy: Colonic mucosa with no specific change. Comment: No amyloid is identified on A, B, C or D. (B and C): Immunostains for H. pylori pending; addendum to follow TODAY'S VISIT Patient is here today for follow-up and to discuss lab and ultrasound results. Patient is accompanied by her mom. Patient reports that she has been feeling better. Patient has been abstinent for few months with no alcohol. Patient is also trying to avoid food high in fat. Eating healthier more protein. Patient reports to be feeling better. Continues to follow with Hematology. Patient underwent upper endoscopy and colonoscopy flat varices seen in the esophagus. No source of bleeding. Colonoscopy was normal. Patient denies any ill effects from the prep, anesthesia or procedure itself. Patient denies melena, hematochezia, unintentional weight loss or ribbon like stools. Patient denies dyspepsia, dysphagia or odynophagia PFSH Medical History Bone marrow disorder Anemia Surgical History Hx of colonoscopy History of esophagogastroduodenoscopy (EGD) Hx of cholecystectomy Family History Father Diabetes Maternal Grandmother Breast cancer Family/Other Lymphoma Social History Household Members: Family Housing: Apartment Are you a primary managed care nurse to a significant other at home: No Do you presently have visiting nurse or other home services: No Alcohol intake: current Alcohol intake frequency: holidays/special occasions only Alcohol type: beer Patient Tobacco Use Status: Never used Tobacco e-Cigarette/Vaping Use: Never Used Second Hand Smoke Exposure: No service: No Current occupational status: employed Current occupation: [employer] Cognitive needs: No Hearing needs: No Vision needs: No Female Reproductive History Menstrual Age of Menarche: 10 Review of Systems Const Denies weight gain and Denies weight loss ENT Reports no additional complaints, Denies dysphagia and Denies odynophagia Card Reports no additional complaints Resp Reports no additional complaints GI Denies abdominal pain, Denies belching, Denies melena, Denies bloating, Denies change in bowel habits, Denies dysphagia, Denies excessive flatus, Denies dyspepsia, Denies heartburn, Denies diarrhea, Denies loose stools, Denies nausea, Denies odynophagia and Denies vomiting Musc Reports no additional complaints Neuro Reports no additional complaints Psych Reports no additional complaints Endo Reports no additional complaints Physical Exam Vital Signs: Last Vital Signs Pulse 62 12/19/23 13:07 BP 142/70 H 12/19/23 13:07 Pulse Ox 100 12/19/23 13:07 Oxygen Delivery Method Room Air 12/19/23 13:07 BMI result Body Mass Index 27.5 Const General: healthy appearing, no acute distress and well developed Nutritional Appearance: well nourished Orientation/consciousness: patient oriented x3 Resp Effort & Inspection: normal respiratory effort, able to speak in complete sentences, no tracheal deviation and symmetric chest movement Auscultation: clear to auscultation bilaterally Cardio Rate: regular rate GI Inspection: Yes normal to inspection and No distended Palpation (GI): Soft to palpation, not firm, nontender and No hepatosplenomegaly present Auscultation: normal bowel sounds General: Yes no CVA tenderness Back/Spine/Pelvis Back: no CVA tenderness Skin General skin exam: elasticity normal, turgor normal and dry skin Neuro General: patient oriented x3 Psych Appearance: grossly normal Mental Status: mental status grossly normal Results Reviewed Results Reviewed: Laboratory Tests 10/17/23 10/27/23 11/22/23 15:00 13:35 11:45 RBC Hgb Hct PT 16.4 H INR 1.3 H APTT 43.4 H Ferritin 149 H Total Bilirubin AST 123 H ALT 38 H Alkaline Phosphatase Liver GGT 354 H Liver Total Bilirubin 1.4 H Liver Apolipoprotein A1 80 L Liver Fibrosis ALT 34 H Liver c-3-Mcjrbruhztnos 328 H Liver Fibrosis Stage F4 Vitamin B12 847 25-OH Vitamin D Total 13 L 12/04/23 14:48 RBC 3.54 L Hgb 10.4 L Hct 31.5 L PT INR APTT Ferritin Total Bilirubin 1.0 AST 40 H ALT 20 Alkaline Phosphatase 78 Liver GGT Liver Total Bilirubin Liver Apolipoprotein A1 Liver Fibrosis ALT Liver e-5-Vgcpyrpuevdlz Liver Fibrosis Stage Vitamin B12 25-OH Vitamin D Total ABDOMINAL ULTRASOUND WITH LIVER ELASTOGRAPHY FINDINGS: PANCREAS: The visualized pancreatic head and body are normal in appearance. The remainder of the pancreas is obscured from visualization by the overlying bowel gas. LIVER: The liver is markedly enlarged with increased echogenicity consistent with steatosis. No focal lesion or intrahepatic biliary duct dilatation. The right lobe measures 24.1 cm in length. The left lobe measures 18.6 cm in length. Portal flow is hepatopedal. Shear wave elastography provides a median stiffness of 2.21 m/s (reference: normal median stiffness is 0.81 - 1.22 m/s). The IQR/median stiffness to assess sampling precision is 0.15 (reference: optimal IQR/median stiffness is under 0.3). GALLBLADDER: Surgically removed. COMMON BILE DUCT: Normal in caliber measuring 0.5 cm in diameter. RIGHT KIDNEY: Normal. No hydronephrosis. No renal calculi or focal parenchymal lesions. The kidney measures 11.5 cm in maximum dimension. FREE FLUID: None. US/US abdomen rhodes w elastography IMPRESSION: 1. Markedly enlarged fatty liver. 2. Elastography: Liver elastography measurements are consistent with a high risk for clinically significant liver fibrosis (METAVIR Stage F3-F4). Assessment & Plan Assessment & Plan (1) Liver fibrosis: Code(s): K74.00 - Hepatic fibrosis, unspecified Category: Medical (2) Anemia: Code(s): D64.9 - Anemia, unspecified Category: Medical Qualifiers: Anemia type: unspecified type Qualified Code(s): D64.9 - Anemia, unspecified (3) History of alcohol consumption: Code(s): Z87.898 - Personal history of other specified conditions (4) Liver cirrhosis: Code(s): K74.60 - Unspecified cirrhosis of liver Qualifiers: Hepatic cirrhosis type: other cirrhosis Qualified Code(s): K74.69 - Other cirrhosis of liver (5) Esophageal varices determined by endoscopy: Code(s): I85.00 - Esophageal varices without bleeding Plan Long discussion with patient and her mother about abstinence from alcohol. Encouraged change in diet and increase exercise. Patient was given a list of food recommended. Patient will return in 1 month to re-evaluate. She will call our office if she will have any GI concerning symptoms. All of lab results, ultrasound as well as upper endoscopy and colonoscopy discussed with patient. Patient was educated about disease process and progression of not careful. MELD score calculated and is 9. Both patient and her mom are agreeable to plan of care and verbalizes understanding of instructions. They were given the opportunity to ask questions and all questions answered thank you for allowing me to participate her care Orders: Orders C Reactive Protein 12/19/23 K58.9 - Irritable bowel syndrome, unspecified Prealbumin 12/19/23 K74.00 - Hepatic fibrosis, unspecified Smooth Muscle Antibody 12/19/23 R79.89 - Other specified abnormal findings of blood chemistry Mitochondrial Antibody 12/19/23 R79.89 - Other specified abnormal findings of blood chemistry Monotest 12/19/23 R74.8 - Abnormal levels of other serum enzymes Liver Panel 12/19/23 R74.01 - Elevation of levels of liver transaminase levels Ceruloplasmin 12/19/23 R79.89 - Other specified abnormal findings of blood chemistry Alpha Fetoprotein 12/19/23 R79.89 - Other specified abnormal findings of blood chemistry Pancreatic Elastase-1 12/19/23 R10.9 - Unspecified abdominal pain Liver Fibrosis Pnl 12/19/23 K76.0 - Fatty (change of) liver, not elsewhere classified Liver Kidney Microsomal Ab 12/19/23 Z86.19 - Personal history of other infectious and parasitic diseases Coding Level of Care Code Est Pt Level 4 (36812) Complex EM visit Add On G2211 Diagnoses Liver fibrosis K74.00 Anemia, unspecified type D64.9 Anemia type: unspecified type History of alcohol consumption Z87.898 Other cirrhosis of liver K74.69 Hepatic cirrhosis type: other cirrhosis Esophageal varices determined by endoscopy I85.00 Time Spent (min) 40 Comment 25 minutes spent with patient and additional 15 minutes spent reviewing her records
[2023-12-19 13:07] VITALS: BP 142/70; PULSE 62; O2SAT 100; BMI 27.5
== END 2023-12-19 14:01 | disposition home or self-care (01) ==
PROVIDERS: PCP Physician Assistant; Visit Provider Nurse Practitioner Family
DX: K74.00 Hepatic fibrosis, unspecified (principal); D64.9 Anemia, unspecified; Z87.898 Personal history of other specified conditions; K74.69 Other cirrhosis of liver; I85.00 Esophageal varices without bleeding
CPT/HCPCS: 99214; G2211

== ENCOUNTER 2023-12-26 08:15 | Outpatient (RCR) | payer OTHER, SELFPAY ==
[2023-12-13 13:54] VITALS: BP 128/71; PULSE 64; RESP 18; TEMP 36.4; O2SAT 100
[2023-12-13] MEDS: Iron Sucrose Complex 200 MG in 0.9 % Sodium Chloride 100 ML 440 MG IV (14:08)
[2023-12-19 08:16] VITALS: BP 136/73; PULSE 65; RESP 16; TEMP 36.6; O2SAT 100
[2023-12-19] MEDS: Iron Sucrose Complex 200 MG in 0.9 % Sodium Chloride 100 ML 440 MG IV (08:24)
[2023-12-26 08:36] VITALS: BP 130/73; PULSE 53; RESP 16; TEMP 36.6; O2SAT 99
[2023-12-26] MEDS: Iron Sucrose Complex 200 MG in 0.9 % Sodium Chloride 100 ML 440 MG IV (08:46)
[2023-12-26] MEDS: 0.9 % Sodium Chloride Flush 10 ML SYRINGE 5 ML IVFLUSH (09:03)
[2023-12-26 09:27] LABS: Basophils Percent Auto 0.7 % (0-2); Eosinophils Absolute Auto 0.4 X10*3/uL (0.0-0.4); Eosinophils Percent Auto 6.3 % (0-4); Hematocrit 34.3 % (37.0-47.0); Hemoglobin 11.3 g/dl (12.0-16.0); Imm Gran Abs Auto 0.01 X10*3/uL (0.00-0.03); Imm Gran Pct Auto 0.2 % (0.0-0.4); Lymphocytes Absolute Auto 1.7 X10*3/uL (1.2-4.9); Lymphocytes Percent Auto 30.2 % (20-40); MANUAL DIFF FLAG NO; Mean Corpuscular HGB Conc 32.9 g/dl (31.0-35.0); Mean Corpuscular Hemoglobin 29.6 pg (27.0-33.0); Mean Corpuscular Volume 89.8 fL (80.0-98.0); Mean Platelet Volume 10.8 fL (9.4-12.3); Monocytes Absolute Auto 0.3 X10*3/uL (0.1-1.2); Monocytes Percent Auto 5.6 % (2-11); Neutrophils Absolute Auto 3.2 x10*3/uL (2.0-8.3); Platelet Count 155 X10*3/uL (160-400); Red Blood Count 3.82 X10*6/uL (4.20-5.50); Red Cell Distribution Width 14.1 % (11.0-16.0); White Blood Count 5.7 X10*3/uL (4.8-10.8)
--- NOTE | 2023-12-26 09:30 | HO.INF ---
09:05am- lab in blood drawn.
== END 2023-12-26 13:46 | disposition home or self-care (01) ==
LOC: HO.INF 08:15
PROVIDERS: Visit Provider Internal Medicine Medical Oncology
DX: D64.9 Anemia, unspecified (principal)
CPT/HCPCS: 36415; 85025; 96365; 96374; J1756

== ENCOUNTER 2024-01-16 13:59 | Outpatient (AMB) | payer OTHER, SELFPAY ==
--- NOTE | 2024-01-16 14:05 | MHC.OFFVIS ---
Vital Signs 01/16/24 14:17 Height 5 ft 9 in Weight 189 lb 2.506 oz BMI 27.9 BP 130/70 Blood Pressure Location Rt brachial Position Sitting Pulse 70 Pulse Source Pulse Oximeter Pulse Oximetry (%) 99 Oxygen Delivery Method Room Air Intake Visit Reasons: 1 Month f/u Intake Note: Relevant Flags or Indicators ? Requires Pantry Steward/Stewardess? N Kerri presents in office today for a scheduled 1 Mos FUV CC; Since last visit; labs ordered ? all done except pancreatic elastase. Rx ordered ? no. Diagnostics/images ordered ? none. Relevant GI Sx as reported per pt; None ? Hx of any recent surgeries? none Pantry Steward/Stewardess Required: No Allergies No Known Allergies Allergy (Verified 01/16/24 14:05) HPI HPI 1 Month f/u: Details: LAST VISIT: Liver fibrosis Anemia History of alcohol consumption Liver cirrhosis Esophageal varices determined by endoscopy Plan Long discussion with patient and her mother about abstinence from alcohol. Encouraged change in diet and increase exercise. Patient was given a list of food recommended. Patient will return in 1 month to re-evaluate. She will call our office if she will have any GI concerning symptoms. All of lab results, ultrasound as well as upper endoscopy and colonoscopy discussed with patient. Patient was educated about disease process and progression of not careful. MELD score calculated and is 9. Both patient and her mom are agreeable to plan of care and verbalizes understanding of instructions. They were given the opportunity to ask questions and all questions answered ? thank you for allowing me to participate her care Orders Orders C Reactive Protein 12/19/23 K58.9 Prealbumin 12/19/23 K74.00 Smooth Muscle Antibody 12/19/23 R79.89 Mitochondrial Antibody 12/19/23 R79.89 Monotest 12/19/23 R74.8 Liver Panel 12/19/23 R74.01 Ceruloplasmin 12/19/23 R79.89 Alpha Fetoprotein 12/19/23 R79.89 Pancreatic Elastase-1 12/19/23 R10.9 Liver Fibrosis Pnl 12/19/23 K76.0 Liver Kidney Microsomal Ab 12/19/23 Z86.19 TODAY'S VISIT Patient is here today for follow-up. Patient is here also to discuss her recent lab work and her progress. Patient reports that she has not drank alcohol since August. Patient is also trying to avoid dietary triggers. Patient is being very strict with her diet. Trying to eat more protein, low-salt. Patient reports that she has been feeling well. Followed with Hematology. Dr. Guerra will be sending patient to [facility] for 2nd opinion. Patient reports that she has been feeling better. She has more energy. No longer is receiving iron, however she is getting B12 shots. Patient is going to see Hematology after this appointment. Patient denies melena, hematochezia, unintentional weight loss or ribbon like stools. Patient denies any dyspepsia, dysphagia or odynophagia. Lab results discussed with patient. Not much improvement when it comes to fibrosis. However with patient's abstinence from alcohol, diet and avoiding hepatotoxic medications patient can improve. Meld score 9. We ruled out PBC, Glenn's disease, autoimmune hepatitis, negative CA markers. [facility] Medical History Bone marrow disorder Anemia Surgical History Hx of colonoscopy History of esophagogastroduodenoscopy (EGD) Hx of cholecystectomy Family History Father Diabetes Maternal Grandmother Breast cancer Family/Other Lymphoma Social History Household Members: Family Housing: Apartment Are you a primary hearing care practitioner to a significant other at home: No Do you presently have visiting nurse or other home services: No Alcohol intake: current Alcohol intake frequency: holidays/special occasions only Alcohol type: beer Patient Tobacco Use Status: Never used Tobacco e-Cigarette/Vaping Use: Never Used Second Hand Smoke Exposure: No service: No Current occupational status: employed Current occupation: [employer] Cognitive needs: No Hearing needs: No Vision needs: No Female Reproductive History Menstrual Age of Menarche: 10 Physical Exam Vital Signs: Last Vital Signs Pulse 70 01/16/24 14:17 BP 130/70 01/16/24 14:17 Pulse Ox 99 01/16/24 14:17 Oxygen Delivery Method Room Air 01/16/24 14:17 BMI result Body Mass Index 27.9 Results Reviewed Results Reviewed: Laboratory Tests 12/19/23 16:03 Total Bilirubin 0.8 Direct Bilirubin 0.4 AST 31 ALT 19 Liver GGT 366 H Liver Total Bilirubin 0.7 Liver Apolipoprotein A1 92 L Liver Fibrosis ALT 16 Liver u-8-Zaysnmnhiplem 308 H Liver Fibrosis Stage F4 C-Reactive Protein 0.31 Total Protein 7.8 Ceruloplasmin 25 Alpha Fetoprotein 2.0 Anti-Mitochondrial Ab NEGATIVE Anti-Smooth Muscle Ab <20 Miriam/Kid Microsom Ab Int <=20.0 Monoscreen Negative Assessment & Plan Assessment & Plan (1) Liver fibrosis: Code(s): K74.00 - Hepatic fibrosis, unspecified Category: Medical (2) Liver cirrhosis: Code(s): K74.60 - Unspecified cirrhosis of liver (3) Hepatomegaly with splenomegaly, not elsewhere classified: Code(s): R16.2 - Hepatomegaly with splenomegaly, not elsewhere classified Plan Patient will return in 3 months and we will recheck her labs. Patient will do her blood work 1 week before her appointment. Continue diet continue abstinence from alcohol. Patient is in good spirits and will follow instructions. She will call our office if she will develop any concerning symptoms. Patient's liver enzyme have normalized. We will repeat also ultrasound after next visit. Patient is agreeable to current plan of care and verbalizes understanding of instructions. She was given the opportunity to ask questions and all questions answered. Thank you for allowing me to participate in her care Orders: Orders Liver Panel 3 Months R74.01 - Elevation of levels of liver transaminase levels Liver Fibrosis Pnl 3 Months K76.0 - Fatty (change of) liver, not elsewhere classified Coding Level of Care Code Est Pt Level 4 (51788) Diagnoses Liver fibrosis K74.00 Liver cirrhosis K74.60 Hepatomegaly with splenomegaly, not elsewhere classified R16.2 Time Spent (min) 40 Comment 25 minutes spent with patient and additional 15 minutes spent reviewing her records
[2024-01-16 14:17] VITALS: BP 130/70; PULSE 70; O2SAT 99; BMI 27.9
== END 2024-01-16 14:34 | disposition home or self-care (01) ==
PROVIDERS: PCP Physician Assistant; Visit Provider Nurse Practitioner Family
DX: K74.00 Hepatic fibrosis, unspecified (principal); K74.60 Unspecified cirrhosis of liver; R16.2 Hepatomegaly with splenomegaly, not elsewhere classified
CPT/HCPCS: 99214

== ENCOUNTER → 2024-01-16 13:59 | Outpatient (BNVA) | payer OTHER, SELFPAY | PROVIDERS: PCP Physician Assistant; Visit Provider Nurse Practitioner Family | DX: K74.60 Unspecified cirrhosis of liver (principal); K74.00 Hepatic fibrosis, unspecified; K76.0 Fatty (change of) liver, not elsewhere classified; R16.2 Hepatomegaly with splenomegaly, not elsewhere classified; R74.01 Elevation of levels of liver transaminase levels | CPT/HCPCS: 99212 ==

== ENCOUNTER 2024-03-14 16:34 | Outpatient (REF) | payer OTHER, SELFPAY ==
[2024-03-14 16:48] LABS: MANUAL DIFF FLAG NO
[2024-03-14 17:06] LABS: Basophils Absolute Auto 0.1 X10*3/uL (0.0-0.2); Basophils Percent Auto 0.9 % (0-2); Eosinophils Absolute Auto 0.2 X10*3/uL (0.0-0.4); Eosinophils Percent Auto 3.3 % (0-4); Hematocrit 34.9 % (37.0-47.0); Hemoglobin 11.8 g/dl (12.0-16.0); Imm Gran Abs Auto 0.02 X10*3/uL (0.00-0.03); Imm Gran Pct Auto 0.3 % (0.0-0.4); Lymphocytes Absolute Auto 2.7 X10*3/uL (1.2-4.9); Lymphocytes Percent Auto 38.6 % (20-40); Mean Corpuscular HGB Conc 33.8 g/dl (31.0-35.0); Mean Corpuscular Hemoglobin 30.2 pg (27.0-33.0); Mean Corpuscular Volume 89.3 fL (80.0-98.0); Monocytes Absolute Auto 0.4 X10*3/uL (0.1-1.2); Monocytes Percent Auto 5.6 % (2-11); Neutrophils Absolute Auto 3.6 x10*3/uL (2.0-8.3); Neutrophils Percent Auto 51.3 % (45-73); Platelet Count 149 X10*3/uL (160-400); Red Blood Count 3.91 X10*6/uL (4.20-5.50); White Blood Count 6.9 X10*3/uL (4.8-10.8)
[2024-03-14 17:54] LABS: Ferritin 134 ng/mL (10-122); Thyroid Stimulating Hormone 1.89 uIU/mL (0.32-4.0)
== END 2024-03-14 16:35 | disposition home or self-care (01) ==
LOC: HO.LAB 16:34
PROVIDERS: PCP Physician Assistant; Visit Provider Internal Medicine Medical Oncology
DX: D64.9 Anemia, unspecified (principal)
CPT/HCPCS: 36415; 82728; 84443; 85025

== ENCOUNTER 2024-04-09 12:16 | Outpatient (REF) | payer OTHER, SELFPAY ==
[2024-04-09 12:35] LABS: MANUAL DIFF FLAG NO
[2024-04-09 12:51] LABS: Basophils Percent Auto 0.8 % (0-2); Eosinophils Absolute Auto 0.3 X10*3/uL (0.0-0.4); Hematocrit 36.8 % (37.0-47.0); Hemoglobin 12.6 g/dl (12.0-16.0); Imm Gran Abs Auto 0.01 X10*3/uL (0.00-0.03); Imm Gran Pct Auto 0.2 % (0.0-0.4); Lymphocytes Absolute Auto 1.9 X10*3/uL (1.2-4.9); Lymphocytes Percent Auto 38.6 % (20-40); Mean Corpuscular HGB Conc 34.2 g/dl (31.0-35.0); Mean Corpuscular Hemoglobin 30.2 pg (27.0-33.0); Mean Corpuscular Volume 88.2 fL (80.0-98.0); Mean Platelet Volume 10.1 fL (9.4-12.3); Monocytes Absolute Auto 0.2 X10*3/uL (0.1-1.2); Monocytes Percent Auto 4.6 % (2-11); Neutrophils Absolute Auto 2.6 x10*3/uL (2.0-8.3); Neutrophils Percent Auto 50.8 % (45-73); Platelet Count 138 X10*3/uL (160-400); Red Blood Count 4.17 X10*6/uL (4.20-5.50); Red Cell Distribution Width 12.5 % (11.0-16.0)
[2024-04-09 13:44] LABS: Alanine Aminotransferase 29 U/L (0-31); Albumin Level 4.4 g/dL (3.5-5.0); Alkaline Phosphatase 70 U/L (39-117); Anion Gap 7 (12-20); Aspartate Amino Transferase 35 U/L (5-31); Bilirubin Direct 0.3 mg/dL (0.0-0.5); Bilirubin Total 0.8 mg/dL (0.0-1.0); Blood Urea Nitrogen 17 mg/dL (9-16); Calcium 9.6 mg/dL (8.4-10.2); Carbon Dioxide 27 mmol/L (22-29); Chloride 110 mmol/L (96-108); Estimated Glomerular Filt Rate > 60; Glucose Random 88 mg/dL (60-115); Potassium 4.3 mmol/L (3.3-5.1); Sodium 140 mmol/L (135-145); Total Protein 7.8 g/dL (6.5-8.0)
[2024-04-16 12:34] LABS: FIB-ALT 21 U/L (6-29); FIB-Alpha-2-Macroglobulin 281 mg/dL (106-279); FIB-Apolipoprotein A1 122 mg/dL (101-198); FIB-GGT 196 U/L (3-50); FIB-Haptoglobin 51 mg/dL (43-212); FIB-Total Bilirubin 0.8 mg/dL (0.2-1.2); Liver Fibrosis Score 0.67; Liver Fibrosis Stage F3; Nec Inflam Act Grade A0; Nec Inflam Act Score 0.14; Reference ID 5296467
== END 2024-04-09 12:17 | disposition home or self-care (01) ==
LOC: HO.LAB 12:16
PROVIDERS: Absent Provider Internal Medicine Medical Oncology; PCP Physician Assistant; Visit Provider Nurse Practitioner Family
DX: D64.9 Anemia, unspecified (principal); R74.01 Elevation of levels of liver transaminase levels; K76.0 Fatty (change of) liver, not elsewhere classified
CPT/HCPCS: 36415; 80053; 81596; 82248; 85025

== ENCOUNTER 2024-04-10 13:20 | Outpatient (REF) | payer OTHER, SELFPAY ==
[2024-04-17 23:49] LABS: Pancreatic Elastase-1 >800 mcg/g (>200)
== END 2024-04-10 13:21 | disposition home or self-care (01) ==
LOC: HO.LNP 13:20
PROVIDERS: Visit Provider Nurse Practitioner Family
DX: R10.9 Unspecified abdominal pain (principal)
CPT/HCPCS: 82656

== ENCOUNTER 2024-04-16 11:18 | Outpatient (AMB) | payer OTHER, SELFPAY ==
[2024-04-16 11:20] VITALS: BP 154/90; PULSE 62; O2SAT 100; BMI 31.5
--- NOTE | 2024-04-16 11:20 | A.OFFVIS_ITS ---
Vital Signs 04/16/24 11:20 Height 5 ft 9 in Weight 213 lb 6.519 oz BMI 31.5 BP 154/90 H Blood Pressure Location Rt brachial Position Sitting Pulse 62 Pulse Source Pulse Oximeter Pulse Oximetry (%) 100 Oxygen Delivery Method Room Air Intake Visit Reasons: 3 month follow up Intake Note: ESTABLISHED PATIENT Reason; 3 mo FU. Multiple lab panels done. Changes/concerns? No significant GI concerns per pt. Pt does report onset of abdominal rash approx. 2 mos ago. Pt did see urgent care. Still has not resolved to this point. Sees Arnulfo SHANE for PCP. Allergies No Known Allergies Allergy (Verified 04/16/24 11:20) HPI HPI 3 month follow up: Details: LAST VISIT: Liver fibrosis Liver cirrhosis Hepatomegaly with splenomegaly, not elsewhere classified Plan Patient will return in 3 months and we will recheck her labs. Patient will do her blood work 1 week before her appointment. Continue diet continue abstinence from alcohol. Patient is in good spirits and will follow instructions. She will call our office if she will develop any concerning symptoms. Patient's liver enzyme have normalized. We will repeat also ultrasound after next visit. Patient is agreeable to current plan of care and verbalizes understanding of instructions. She was given the opportunity to ask questions and all questions answered. ? Thank you for allowing me to participate in her care Orders Orders Liver Panel 3 Months R74.01 Liver Fibrosis Pnl 3 Months K76.0 TODAY'S VISIT Patient is here today for follow-up and to discuss lab results. Patient is accompanied by her mom. Patient reports that she has been feeling fairly well. She is completely staying away from alcohol. Denies any abdominal pain or discomfort. Denies any jaundice, abdominal distention, pruritus. Patient reports that about couple months ago she started with rash on her abdomen that sometimes is intense and sometimes disappears. This is most likely due to her liver cirrhosis liver fibrosis panel done and not back yet. Liver enzymes have improved. FIB 4 score 1.65, MELD score 9. Patient is concerned about her diagnosis and is worried. Patient denies any melena, hematochezia, unintentional weight loss or ribbon like stools. Patient gained 20 lb since November of last year. Patient denies any dyspepsia, dysphagia or odynophagia PFSH Medical History Bone marrow disorder Anemia Surgical History Hx of colonoscopy History of esophagogastroduodenoscopy (EGD) Hx of cholecystectomy Family History Father Diabetes Maternal Grandmother Breast cancer Family/Other Lymphoma Social History Household Members: Family Housing: Apartment Are you a primary resident care spec to a significant other at home: No Do you presently have visiting nurse or other home services: No Alcohol intake: current Alcohol intake frequency: holidays/special occasions only Alcohol type: beer Patient Tobacco Use Status: Never used Tobacco e-Cigarette/Vaping Use: Never Used Second Hand Smoke Exposure: No service: No Current occupational status: employed Current occupation: [employer] Cognitive needs: No Hearing needs: No Vision needs: No Female Reproductive History Menstrual Age of Menarche: 10 Review of Systems Const Denies weight gain and Denies weight loss ENT Reports no additional complaints, Denies dysphagia and Denies odynophagia Card Reports no additional complaints Resp Reports no additional complaints GI Denies abdominal pain, Denies belching, Denies melena, Denies bloating, Denies change in bowel habits, Denies dysphagia, Denies excessive flatus, Denies dyspepsia, Denies heartburn, Denies diarrhea, Denies loose stools, Denies nausea, Denies odynophagia and Denies vomiting Reports no additional complaints Musc Reports no additional complaints Skin/Breast Details: Reports on and off rash Neuro Reports no additional complaints Psych Reports no additional complaints Endo Reports no additional complaints Physical Exam Vital Signs: Last Vital Signs Pulse 62 04/16/24 11:20 BP 154/90 H 04/16/24 11:20 Pulse Ox 100 04/16/24 11:20 Oxygen Delivery Method Room Air 04/16/24 11:20 BMI result Body Mass Index 31.5 Const General: healthy appearing, no acute distress and well developed Nutritional Appearance: well nourished Orientation/consciousness: patient oriented x3 Resp Effort & Inspection: normal respiratory effort, able to speak in complete sentences, no tracheal deviation and symmetric chest movement Auscultation: clear to auscultation bilaterally Cardio Rate: regular rate GI Inspection: Yes normal to inspection and No distended Palpation (GI): Soft to palpation, not firm, nontender and No hepatosplenomegaly present Auscultation: normal bowel sounds General: Yes no CVA tenderness Back/Spine/Pelvis Back: no CVA tenderness Skin General skin exam: elasticity normal, turgor normal and dry skin Neuro General: patient oriented x3 Psych Appearance: grossly normal Mental Status: mental status grossly normal Assessment & Plan Assessment & Plan (1) Liver fibrosis: Code(s): K74.00 - Hepatic fibrosis, unspecified Category: Medical (2) Liver cirrhosis: Code(s): K74.60 - Unspecified cirrhosis of liver Qualifiers: Hepatic cirrhosis type: unspecified hepatic cirrhosis Ascites presence: without ascites Qualified Code(s): K74.60 - Unspecified cirrhosis of liver (3) Hepatomegaly with splenomegaly, not elsewhere classified: Code(s): R16.2 - Hepatomegaly with splenomegaly, not elsewhere classified (4) GERD (gastroesophageal reflux disease): Code(s): K21.9 - Gastro-esophageal reflux disease without esophagitis Category: Medical Qualifiers: Esophagitis presence: without esophagitis Qualified Code(s): K21.9 - Gastro-esophageal reflux disease without esophagitis Plan Awaiting for liver elastography previously staged at F4. Will order abdominal ultrasound with elastography and patient will do her CBC to check for anemia and check her platelets. PT and INR, CMP. Patient will do those 2-3 weeks before her next appointment. Continue low-fat, low-salt, low carb and high-protein diet. Patient has instruction and pamphlet at home to follow. Continue omeprazole daily. Avoid dietary triggers and late night snacking. Staying upright for minimum 3 hours after meals discussed with patient. Patient will follow-up in 4 months, sooner on as needed basis. Both her and her mom are agreeable to plan of care and verbalizes understanding of instructions. They were given the opportunity to ask questions and all questions answered. Thank you for allowing me to participate in her care Orders: Orders US abdomen comp w elastography Today R79.89 - Other specified abnormal findings of blood chemistry Complete Blood Count no Diff Today K74.00 - Hepatic fibrosis, unspecified Prothrombin Time INR Today R74.8 - Abnormal levels of other serum enzymes Comprehensive Met. Panel Today K74.00 - Hepatic fibrosis, unspecified Coding Level of Care Code Est Pt Level 4 (63434) Diagnoses Liver fibrosis K74.00 Cirrhosis of liver without ascites, unspecified hepatic cirrhosis type K74.60 Hepatic cirrhosis type: unspecified hepatic cirrhosis Ascites presence: without ascites Hepatomegaly with splenomegaly, not elsewhere classified R16.2 Gastroesophageal reflux disease without esophagitis K21.9 Esophagitis presence: without esophagitis Time Spent (min) 40 Comment 25 minutes spent with patient and additional 15 minutes spent reviewing her records
--- OUTSIDE RECORDS SUMMARY | 2024-04-16 13:06 | XMS_ITS | Encounter Summary ---
Author Organization [facility] Address [address] [place] [address] Phone Care Team Providers Care Bleacher Operator Name Role Phone Emma Lizarraga MD Primary Care Provider [phone] Encounter Details Date Type Department Care Team (Late st Contact Info) Description 11/10/2016 Conversion Encounter [facility] [place] [address] [place] [address] Social History Tobacco Use Types Packs/Day Years Used Date Smoking Tobacco: Never Assessed Comments Unknown Sex and Gender Information Value Date Recorded Sex Assigned at Not on file Legal Sex Female 4:30 PM EDT Gender Identity Not on file Sexual Orientation Not on file documented as of this encounter Plan of Treatment Not on file documented as of this encounter Visit Diagnoses Not on filedocumented in this encounter Care Teams Bleacher Operator Relationship Specialty Start Date End Date Emma Lizarraga MD [address] [place] [address] PCP - General 11/04/16 05/11/22 documented as of this encounter
--- OUTSIDE RECORDS SUMMARY | 2024-04-16 13:06 | XMS_ITS | Clinical Summary ---
Author Organization [facility] Address [address] [place] [id number] Phone Care Team Providers Care Financial Professional Name Role Phone Unavailable Primary Care Provider Unavailabl e Immunizations Name Administration Dates Next Due DTP 09/23/1998, 4,01/02/1990,01/17,1988 HPV, Quadrivalent 01/01/2009,08/09/2007 Hep B, ped/adol 07/19/2000,03/06/2000,01/12/2000 Hib (HbOC) 01/02/1990 IPV 09/23/1998, 4,01/02/1990,11/01 Influenza, injectable, trivalent 01/01/2009 MMR 12/20/2000,09/20/1989 Meningococcal Conj (Menactra) MCV4P 08/09/2007 Td (adult) (MBL), 2 Lf tetan us toxoid, PF, adsorbed 12/20/2000 Tdap 08/09/2007 Family History Relation Name Status Comments Brother Alive Brother: Alive and well Father Alive Father: Alive a nd well Mother Alive Mother: Alive a nd well Sister Alive Sister: Alive a nd well Social History Tobacco Use Types Packs/Day Years Used Date Smoking Tobacco: Never Assessed Comments Unknown Sex and Gender Information Value Date Recorded Sex Assigned at Not on file Legal Sex Female 4:30 PM EDT Gender Identity Not on file Sexual Orientation Not on file Plan of Treatment Health Maintenance Due Date Last Done Comments Varicella Vaccines (1 of 2 - 13+ 2-dose series) 2001 HPV Vaccines (3 - 3-dose series) 03/26/2009 01/01/2009, 08/09/2007 DTaP,Tdap,and Td Vaccines (8 - Td or Tdap) 08/08/2017 08/09/2007, 12/20/2000, 09/23/1998, Additional history exists Influenza Vaccines (#1) 2023 01/01/2009 COVID-19 Vaccine ( season) 2023 HIB Vaccines Completed 01/02/1990 IPV Vaccines Completed 09/23/1998, 09/24, 01/02/1990, Additional history exists Hepatitis B Vaccines Completed 07/19/2000, 03/06/2000, 01/12/2000 MMR Vaccines Completed 12/20/2000, 09/20/1989 Meningococcal Vaccine Aged Out 08/09/2007 No som alvarado eligible based on patient's age to complete this topic Hepatitis A Vaccines Aged Out No long er eligible based on patient's age to complete this topic Men B Vaccine Aged Out No longer elig ible based on patient's age to complete this topic Pneumococcal Vaccine Aged Out No long er eligible based on patient's age to complete this topic
== END 2024-04-16 12:11 | disposition home or self-care (01) ==
PROVIDERS: PCP Physician Assistant; Visit Provider Nurse Practitioner Family
DX: K74.00 Hepatic fibrosis, unspecified (principal); K74.60 Unspecified cirrhosis of liver; R16.2 Hepatomegaly with splenomegaly, not elsewhere classified; K21.9 Gastro-esophageal reflux disease without esophagitis
CPT/HCPCS: 99214

== ENCOUNTER → 2024-04-16 11:18 | Outpatient (BNVA) | payer OTHER, SELFPAY | PROVIDERS: PCP Physician Assistant; Visit Provider Nurse Practitioner Family | DX: K74.60 Unspecified cirrhosis of liver (principal); K74.00 Hepatic fibrosis, unspecified; R16.2 Hepatomegaly with splenomegaly, not elsewhere classified; K21.9 Gastro-esophageal reflux disease without esophagitis; R79.89 Other specified abnormal findings of blood chemistry; R74.8 Abnormal levels of other serum enzymes | CPT/HCPCS: 99212 ==

== ENCOUNTER 2024-05-15 09:13 | Outpatient (AMB) | payer OTHER, SELFPAY ==
[2024-05-15 09:25] VITALS: BP 130/86; PULSE 53; TEMP 36.2; O2SAT 99; BMI 30.9
--- NOTE | 2024-05-15 09:25 | A.OFFPC_ITS ---
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 Required: No Accompanied by: Self / Same As Patient Allergies No Known Allergies Allergy (Verified 05/15/24 09:40) Medication List - Last Reconciled 05/15/24 by Abdi Lester PA-C blood pressure monitor take blood pressure reading once a day as needed cholecalciferol (vitamin D3) 50 mcg PO DAILY cyanocobalamin (vitamin B-12) 1,000 mcg sublingual DAILY ferrous sulfate 325 mg PO BID 90 days folic acid 1 mg PO DAILY lorazepam 0.5 mg PO BID PRN 5 days omeprazole 20 mg PO DAILY ondansetron 4 mg PO Q6H sertraline 50 mg PO DAILY 30 days Tobacco use date assessed: 05/15/24 Dental Screening Dental Screen Date: 05/15/24 Did you have a dental visit in the last 12 months?: Yes Did you have a dental problem in the last 6 months where you did not have access to dental care?: No Was dental information given to patient?: Patient has dentist HPI f/u MIRYAM/ anemia 2 HPI0 Details Patient is a 33-year-old female here today for follow-up visit. Concern--> persistent skin rash associated with pruritus. The rash extends from the chest to the back and sides, and has been noted to bleed occasionally when scratched, especially at night. The patient reports a history of skin sensitivity and has used Aveeno moisturizer since childhood. Previously trialed treatments provided only temporary relief. She has a family history of skin cancer . She also mentioned she has noted worsening varicose veins over bilateral extremities. She does report having discomfort and pain in the areas of her varicosities. Will try to set her up with vascular surgeon for evaluation and treatment. Labs were abnormal 4 normocytic anemia and hypokalemia. She has underwent a repeat bone marrow biopsy and some genetic testing. She has been referred to another passenger relations representative [facility] for 2nd opinion She has been set up with iron infusions . She has been transitioned to oral B12. Her CBC has much improved. It seems she has been feeling a bit better and her hair loss and thinning has improved. .. Liver fibrosis: Patient followed [facility] [facility]. Liver enzymes have improved overall though still slightly elevated. She is due for repeat ultrasound evaluate her liver fibrosis. ... Generalized anxiety disorder: She continues on sertraline 50 mg which she reports she has noted a difference in her anxious symptoms. Would like to continue medication for now. She has use lorazepam 0.5 mg on very limited basis. Laboratory Tests 03/14/24 04/09/24 04/10/24 16:46 12:34 13:20 RBC 4.17 L Hct 36.8 L Creatinine Ferritin 134 H ALT 29 AST Total Protein Stool Pancreat Margoth stase >800 05/07/24 14:18 RBC 4.23 Hct 37.0 Creatinine 0.72 Ferritin 159 H ALT 30 AST 39 H Total Protein 8.1 H Stool Pancreat Margoth stase PFSH Medical History Bone marrow disorder Anemia Surgical History Hx of colonoscopy History of esophagogastroduodenoscopy (EGD) Hx of cholecystectomy Family History Father Diabetes Maternal Grandmother Breast cancer Family/Other Lymphoma Social History Household Members: Family Housing: Apartment Are you a primary health care sanitary technician to a significant other at home: No Do you presently have visiting nurse or other home services: No Alcohol intake: current Alcohol intake frequency: holidays/special occasions only Alcohol type: beer Patient Tobacco Use Status: Never used Tobacco e-Cigarette/Vaping Use: Never Used Second Hand Smoke Exposure: No service: No Current occupational status: employed Current occupation: [employer] Cognitive needs: No Hearing needs: No Vision needs: No Female Reproductive History Menstrual Age of Menarche: 10 Questionnaire PHQ-9 Over the last 2 weeks, how often have you been bothered by any of the following problems? 1. Little interest or pleasure in doing things: not at all 2. Feeling down, depressed, or hopeless: not at all 3. Trouble falling or staying asleep, or sleeping too much: not at all 4. Feeling tired or having little energy: not at all 5. Poor appetite or overeating: not at all 6. Feeling bad about yourself - or that you are a failure or have let yourself or your family down: not at all 7. Trouble concentrating on things, such as reading the newspaper or watching television: not at all 8. Moving or speaking so slowly that other people could have noticed. Or the opposite - being so fidgety or restless that you have been moving around a lot more than usual: not at all 9. Thoughts that you would be better off or of hurting yourself in some way: not at all Total score: 0 Depression Screening Interpretation: Negative Depression Screening Done: Yes 36534 - PHQ-9 Billing: Yes Source: Developed by Drs. Amadeo Rangel, Rosa Isela Cameron, Chris Isabel and colleagues, with an educational pino from [employer]. Thrive Questionnaire Date Thrive assessed: 05/15/24 I am a: Patient What is your living situation today?: I have a steady place to live Within the past 12 months, did the food you bought not last and you didn't have the money to get more?: Never true Within the past 12 months, did you worry whether your food would run out before you got money to buy more?: Never true Do you have trouble paying for medicines?: No Do you have trouble getting transportation to medical appointments?: No Do you have trouble paying your heating and electricity bill?: No Do you have trouble taking care of your child, family member or friend?: No Do you have trouble with day-to-day activities such as bathing, preparing meals, shopping, managing finances, etc.?: No Are you currently unemployed and looking for a job?: No Are you interested in more education?: No Please select the resources that you would like help with: None Currently or been in a relationship where the following occur: No concerns reported THRIVE Score: 0 AUDIT C Alcohol Use Questionnaire (AUDIT-C) 1. How often do you have a drink containing alcohol?: Never 3. How often do you have six or more drinks on one occasion?: Never Total Score: 0 MIRYAM-7 AMB Questionnaire MIRYAM-7 Date MIRYAM - 7 assessed: 05/15/24 Feeling nervous, anxious, or on edge: 0 = Not at all Not being able to stop or control worryin = Not at all Worrying too much about different things: 0 = Not at all Trouble relaxin = Not at all Being so restless that it is hard to sit still: 0 = Not at all Becoming easily annoyed or irritable: 0 = Not at all Feeling afraid as if something awful might happen: 0 = Not at all Total MIRYAM-7 score (0-4 normal; 5-9 mild; 10-14 moderate; 15-21 severe): 0 Source: Developed by Drs. Amadeo Rangel, Rosa Isela Cameron, Chris Isabel and colleagues, with an educational pino from [employer]. MIRYAM-7 Assessment Billing MIRYAM-7 Assessment Tool: MIRYAM-7 Assessment 53675 Review of Systems Const Denies headache(s) Eyes Denies loss of vision ENT Denies vertigo, Denies dizziness, Denies headache(s) and Denies sore throat Card Denies chest pain, Denies leg edema and Denies lightheadedness Resp Denies cough, Denies hemoptysis and Denies wheezing GI Denies abdominal pain, Denies melena, Denies constipation, Denies diarrhea and Denies vomiting Denies urinary frequency, Denies dysuria and Denies urinary urgency Musc Denies arthralgias, Denies joint swelling, Denies numbness and Denies tingling Neuro Denies Abnormal speech present, Denies behavioral changes, Denies vertigo, Denies dizziness, Denies headache(s), Denies loss of vision, Denies memory loss, Denies numbness and Denies tingling Psych Denies anxiety, Denies behavioral changes, Denies depression, Denies memory loss and Denies panic attacks Felipe/Lymph Denies easy bleeding and Denies easy bruising Aller/Immun Denies wheezing Physical exam (Primary Care) Vital Signs: Last Vital Signs Temp 97.1 F 05/15/24 09:25 Pulse 53 05/15/24 09:25 BP 130/86 05/15/24 09:25 Pulse Ox 99 05/15/24 09:25 Oxygen Delivery Method Room Air 05/15/24 09:25 BMI result Body Mass Index 30.9 Tobacco/Smoking Status: Tobacco use Status Tobacco use date assessed 05/15/24 05/15/24 09:32 Patient Tobacco Use Status Never used Tobacco 05/15/24 09:25 e-Cigarette/Vaping Use Never Used 05/15/24 09:25 PHQ-9: PHQ-9 Score PHQ-9: Total score 0 05/15/24 09:32 Depression Screening Interpretation: Negative Thrive Assessment: Date of Thrive Assessment Date Thrive assessed 05/15/24 05/15/24 09:32 Currently or been in a relationship where the following occur: No concerns reported Const General: healthy appearing, no acute distress, alert and awake Nutritional Appearance: well nourished Orientation/consciousness: oriented to person, oriented to place and oriented to time HENMT Ears: TM's normal bilaterally General nose exam: Normal nasal mucous membranes and turbinates present Eyes Conjunctivae: conjunctivae normal Sclerae: sclerae normal Pupils: Equal, round and reactive pupils present Neck Neck: Yes no lymphadenopathy and Yes no JVD Thyroid: Thyroid normal Carotids: no bruits Resp Effort & Inspection: normal respiratory effort and not tachypneic Auscultation: no crackles, no rales, no rhonchi and no wheezes Cardio Rate: regular rate Rhythm: regular rhythm Heart sounds: no murmurs and normal S1 and S2 GI Palpation (GI): Soft to palpation, nontender, no hepatomegaly and no splenomegaly Auscultation: normal bowel sounds Skin Other: General skin exam: no rashes or lesions noted and dry skin Neuro General: oriented to person, oriented to place and oriented to time Cranial nerves: Yes Equal, round and reactive pupils present Speech: No Abnormal speech present Gait exam (Neuro): Normal gait present Motor exam (neuro): no tremor noted Extrem Right upper extremity: full ROM Left upper extremity: full ROM Right lower extremity: full ROM; no edema Left lower extremity: full ROM; no edema Psych Mental Status: mental status grossly normal Speech and movement: Normal speech and movement present Affect: normal affect Attitude: cooperative Thought process: Normal thought process present Coding Level of Care Code Est Pt Level 4 (47819) Diagnoses Liver fibrosis K74.00 Skin rash R21 Hidradenitis suppurativa L73.2 Drug-induced constipation K59.03 Constipation type: drug induced constipation Symptomatic varicose veins of both lower extremities I83.893 Laterality: bilateral Normochromic normocytic anemia D64.9 Additional Codes MIRYAM-7 Assessment Billing - MIRYAM-7 Assessment Tool: MIRYAM-7 Assessment 78523 ([id number]) PHQ-9 - 66128 - PHQ-9 Billing: Yes ([id number]) Assessment & Plan Assessment & Plan (1) Liver fibrosis: Code(s): K74.00 - Hepatic fibrosis, unspecified Category: Medical Plan: Will continue to follow gastroenterology here in [place]. Is due for repeat liver ultrasound to evaluate for improving liver fibrosis. Most recent liver enzymes fairly stable though still slightly elevated. (2) Skin rash: Code(s): R21 - Rash and other nonspecific skin eruption Category: Medical Plan: Will supply patient with topical triamcinolone lotion to help with the itch over her abdomen. Please see picture section from physical exam. (3) Hidradenitis suppurativa: Code(s): L73.2 - Hidradenitis suppurativa Category: Medical Plan: I explained the likely diagnosis of Hidradenitis suppurativa for the skin rash and considered bacterial involvement, leading to the prescription of doxycycline. I discussed the possibility of a biopsy if the rash persists despite conservative treatment, and the need for dermatological assessment. (4) Constipation: Code(s): K59.00 - Constipation, unspecified Category: Medical Qualifiers: Constipation type: drug induced constipation Qualified Code(s): K59.03 - Drug induced constipation Plan: Has been experiencing constipation likely secondary to her iron. Has tried MiraLax recently though has not been effective. Will supply patient with Colace to soften stool. Will increase fiber and water in her diet as well. (5) Symptomatic varicose veins: Code(s): I83.899 - Varicose veins of unspecified lower extremity with other complications Category: Medical Qualifiers: Laterality: bilateral Qualified Code(s): I83.893 - Varicose veins of bilateral lower extremities with other complications Plan: We covered varicose veins, suggesting a vascular consult for potential intervention. (6) Normochromic normocytic anemia: Code(s): D64.9 - Anemia, unspecified Category: Medical Plan: Continues to follow [facility] hematology. Continues on iron supplementation and B12 supplementation. Most recent CBC has not improved. She will be referred to another passenger relations representative for 2nd opinion on her abnormal bone marrow biopsy Orders: Referrals 2 Vascular Surgery Referral I83.893 - Varicose veins of bilateral lower extremities with other complications Dermatology Referral L73.2 - Hidradenitis suppurativa Medications: New 2 triamcinolone acetonide 0.1% 1 appl topical DAILY 30 days 60 mL 1RF R21 - Rash and other nonspecific skin eruption doxycycline monohydrate 100 mg PO BID 7 days 14 caps 0RF L73.2 - Hidradenitis suppurativa docusate sodium (Colace) 100 mg PO BID 30 days 60 caps 3RF K59.03 - Drug induced constipation Refilled 2 lorazepam 0.5 mg PO BID 5 days PRN 10 tabs 0RF anxiety F41.1 - Generalized anxiety disorder
--- OUTSIDE RECORDS SUMMARY | 2024-05-15 09:25 | XMS_ITS | Encounter Summary ---
Author Organization [facility] Address [address] [place] [address] Phone Care Team Providers Care Store Product Demonstrator Name Role Phone Emma Lizarraga MD Primary Care Provider [phone] Encounter Details Date Type Department Care Team (Late st Contact Info) Description 11/10/2016 Conversion Encounter [facility] - [place] [address] [place] [address] Social History Tobacco Use Types Packs/Day Years [...] on filedocumented in this encounter Care Teams Store Product Demonstrator Relationship Specialty Start Date End Date Emma Lizarraga MD [address] [place] [address] PCP - General 11/04/16 05/11/22 documented as of this encounter
--- OUTSIDE RECORDS SUMMARY | 2024-05-15 09:25 | XMS_ITS | Clinical Summary ---
Author Organization [facility] Address [address] [place] [id number] Phone Care Team Providers Care J2Ee Developer Name Role Phone Unavailable Primary Care Provider Unavailabl e Immunizations Immunization Administration Dates Next Due DTP 09/23/1998, 4,01/02/1990,01/17,1988 [...]
== END 2024-05-15 10:18 | disposition home or self-care (01) ==
PROVIDERS: PCP Physician Assistant; Visit Provider Physician Assistant
DX: K74.00 Hepatic fibrosis, unspecified (principal); R21 Rash and other nonspecific skin eruption; L73.2 Hidradenitis suppurativa; K59.03 Drug induced constipation; I83.893 Varicose veins of bilateral lower extremities with other complications; D64.9 Anemia, unspecified

== ENCOUNTER → 2024-05-15 09:13 | Outpatient (BNVA) | payer OTHER, SELFPAY | PROVIDERS: PCP Physician Assistant; Visit Provider Physician Assistant | DX: K74.00 Hepatic fibrosis, unspecified (principal); R21 Rash and other nonspecific skin eruption; L73.2 Hidradenitis suppurativa; K59.03 Drug induced constipation; D64.9 Anemia, unspecified; I83.893 Varicose veins of bilateral lower extremities with other complications | CPT/HCPCS: 96127; 99212 ==

== ENCOUNTER 2024-05-17 08:01 | Outpatient (REF) | payer OTHER, SELFPAY ==
--- NOTE | ~2024-05-17 | US_ITS ---
EXAMINATION: US COMPLETE ABDOMEN WITH LIVER ELASTOGRAPHY CLINICAL INFORMATION: Abnormal blood chemistries. COMPARISON: US abdomen limited with elastography 11/02/2023. TECHNIQUE: Real-time imaging of the abdominal viscera. Noninvasive ultrasound liver fibrosis assessment is performed using Arlet ElastPQ point quantification shear wave elastography (pSWE) with a C5-2 MHz transducer. Multiple elastography samples are obtained. FINDINGS: PANCREAS: The visualized pancreatic head and body are normal in appearance. The remainder of the pancreas is obscured from visualization by the overlying bowel gas. ABDOMINAL AORTA: No aortic aneurysm is seen. INFERIOR VENA CAVA: Visualized portions are normal. LIVER: Liver is Enlarged with mildly diffuse increased and coarsened hepatic echogenicity. No suspicious focal lesion. Minimally dilated intrahepatic ducts in the right lower hepatic lobe, felt to most likely be reservoir effect from cholecystectomy. The right lobe measures 22.5 cm in length. The left lobe measures 15.8 cm in length. Portal flow is hepatopedal. Shear wave liver elastography median stiffness is 1.94 m/s (reference: normal median stiffness is 1.3 m/s or less). (Previously measured 2.21). IQR/median stiffness to assess sampling precision is 0.28 (reference: good quality data set is IQR/median stiffness of 0.15 or less). GALLBLADDER: Surgically Absent. COMMON BILE DUCT: Top normal in caliber measuring 0.8 cm in diameter. RIGHT KIDNEY: No hydronephrosis. No renal calculi or focal parenchymal lesions. The kidney measures 13.5 cm in maximum dimension. LEFT KIDNEY: No hydronephrosis. No renal calculi or focal parenchymal lesions. The kidney measures 13.4 cm in maximum dimension. SPLEEN: Unremarkable. The spleen is enlarged measuring 19.7 cm in maximum dimension. FREE FLUID: None seen. US/US abdomen comp w elastography IMPRESSION: 1. Hepatomegaly and splenomegaly. Diffusely increased and mildly coarsened hepatic echogenicity without suspicious lesion. 2. Liver elastography: Although measurements are suggestive of compensated advanced chronic liver disease, there is statistical variability of the sampling which decreases accuracy. When compared with prior exam, there is a statistically significant decrease in liver stiffness (decrease at least 10%), with prior measurement of 2.21 m/s. This is indeterminant given sample data variability. 3. Cholecystectomy. 4. Mild right hepatic lobe intrahepatic ductal dilatation is felt to represent reservoir effect from cholecystectomy. REFERENCE: Society of Radiologists in Ultrasound Liver Stiffness Thresholds (2020): LIVER STIFFNESS THRESHOLDS: *Liver Stiffness equal or less than 1.3 m/s: High probability of being normal. *Liver Stiffness less than 1.7 m/s: In the absence of other known clinical signs, rules out compensated advanced chronic liver disease. *Liver Stiffness 1.7-2.1 m/s: Suggestive of compensated advanced chronic liver disease but need further test for confirmation. *Liver Stiffness over 2.1 m/s: Rules in compensated advanced chronic liver disease. *Liver Stiffness over 2.4 m/s: Suggestive of clinically significant portal hypertension. QUALITY OF DATA SET: *IQR/Median value equal or less than 0.15 implies a quality data set. *IQR/Median value over 0.15 implies a poor quality data set. SIGNIFICANT CHANGE FROM PRIOR EXAM: Significant change if liver stiffness measurement is 10% or greater from prior exam. OTHER CONSIDERATIONS: The stage of liver fibrosis may be overestimated in the setting of acute hepatitis, liver inflammation, elevated liver function tests, hepatic vascular congestion, obstructive cholestasis, non-fasting state, and infiltrative diseases such as amyloidosis and lymphoma. In some patients with NAFLD, the liver stiffness thresholds for compensated advanced chronic liver disease may be lower. In causes other than viral hepatitis and NAFLD, liver stiffness thresholds are not well established. Electronically signed by: Elfego Carlson MD 05/17/2024 10:51 AM REDDY
--- OUTSIDE RECORDS SUMMARY | 2024-05-17 08:04 | XMS_ITS | Clinical Summary ---
Author Organization [facility] Address [address] [place] [id number] Phone Care Team Providers Care Career Center Advisor Name Role Phone Unavailable Primary Care Provider [...]
--- OUTSIDE RECORDS SUMMARY | 2024-05-17 08:04 | XMS_ITS | Encounter Summary ---
Author Organization [facility] Address [address] [place] [address] Phone Care Team Providers Care Ornamental Metal Worker Apprentice Name Role Phone Emma Lizarraga MD Primary Care Provider [phone] Encounter Details Date Type Department Care Team (Late st Contact Info) Description 11/10/2016 Conversion Encounter [facility] [address] [place] [address] Social History Tobacco Use Types Packs/Day Years [...] on filedocumented in this encounter Care Teams Ornamental Metal Worker Apprentice Relationship Specialty Start Date End Date Emma Lizarraga MD [address] [place] [address] PCP - General 11/04/16 05/11/22 documented as of this encounter
== END 2024-05-17 08:02 | disposition home or self-care (01) ==
LOC: HO.US 08:01
PROVIDERS: PCP Physician Assistant; Visit Provider Nurse Practitioner Family
DX: R79.89 Other specified abnormal findings of blood chemistry (principal)
CPT/HCPCS: 76700; 76981

== ENCOUNTER → 2024-05-17 08:03 | Outpatient (BNV) | payer OTHER, SELFPAY | PROVIDERS: PCP Physician Assistant; Visit Provider Radiology Diagnostic Radiology | DX: R16.2 Hepatomegaly with splenomegaly, not elsewhere classified (principal); R79.89 Other specified abnormal findings of blood chemistry; Z90.49 Acquired absence of other specified parts of digestive tract | CPT/HCPCS: 76700 ==

== ENCOUNTER 2024-05-21 11:01 | Outpatient (AMB) | payer OTHER, SELFPAY ==
[2024-05-21 11:03] VITALS: BMI 30.9
--- NOTE | 2024-05-21 11:03 | A.OFFVIS_ITS ---
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 Pt states Left LE worse than the Right LE. 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 She states she has had them for approximately 10 years now, and they are worsening. Complaints include pain in the lower extremities, swelling of lower extremities, cramping, fatigue, and heaviness of the lower extremities. It has been affecting their daily activities including working, walking, sitting and standing. It is noted more so in left leg. She is currently being worked up for iron-deficiency anemia with a question of hemorrhagic telangiectasia. She states she also has some right foot numbness, that happens intermittently. There is a significant family history of varicose veins. She is not a diabetic and does not smoke cigarettes. Patient denies any previous venous surgery or injections. Patient denies any history of DVT/ PE. Patient denies any history of phlebitis. Trial of compression includes - elevation with some relief They now present for vascular evaluation regarding their varicose veins. [facility] Medical History Bone marrow disorder Anemia Surgical History Hx of colonoscopy History of esophagogastroduodenoscopy (EGD) Hx of cholecystectomy Family History Father Diabetes Maternal Grandmother Breast cancer Family/Other Lymphoma Social History Household Members: Family Housing: Apartment Are you a primary wound care coordinator to a significant other at home: No Do you presently have visiting nurse or other home services: No Alcohol intake: current Alcohol intake frequency: holidays/special occasions only Alcohol type: beer Patient Tobacco Use Status: Never used Tobacco e-Cigarette/Vaping Use: Never Used Second Hand Smoke Exposure: No service: No Current occupational status: employed Current occupation: [employer] Cognitive needs: No Hearing needs: No Vision needs: No Female Reproductive History Menstrual Age of Menarche: 10 Review of Systems Const Reports as per HPI and Denies weakness ENT Reports Normal hearing present and Denies dizziness Card Reports as per HPI, Denies chest pain, Denies chest pain at rest, Denies chest pain with activity, Denies dyspnea and Denies dyspnea on exertion Resp Reports as per HPI, Denies cough, Denies dyspnea and Denies dyspnea on exertion GI Reports as per HPI, Denies abdominal pain, Denies nausea and Denies vomiting Musc Denies numbness Skin/Breast Reports as per HPI, Denies erythema and Denies wounds Neuro Reports Normal hearing present, Denies dizziness, Denies numbness, Denies Sensory deficit (Neuro) and Denies weakness Psych Reports no additional complaints Endo Reports no additional complaints Physical Exam Vital Signs: BMI result Body Mass Index 30.9 Const General: healthy appearing and no acute distress Orientation/consciousness: patient oriented x3 HEENT Head: Yes normal to inspection Ears: hearing grossly normal bilaterally Mouth: Normal oral and palatal mucosa present Resp Effort & Inspection: normal respiratory effort and able to speak in complete sentences Auscultation: clear to auscultation bilaterally Cardio Jugular venous distension: no JVD Rate: regular rate Rhythm: regular rhythm Heart sounds: S1 normal heart sound present and S2 normal heart sound present Bruits: no abdominal aortic bruits, no carotid bruits, no femoral bruits and no renal bruits Peripheral pulses: Peripheral pulses 2+ throughout GI Inspection: Yes normal to inspection Palpation (GI): No Abdominal aortic bruit present Skin General skin exam: no rashes or lesions noted Wounds: no wounds Hair: normal Neuro General: patient oriented x3 Cranial nerves: Yes Normal hearing present Cognition (Neuro): normal cognition Gait exam (Neuro): Normal gait present Motor exam (neuro): 5/5 motor strength present throughout Sensory Exam: No Sensory deficit (Neuro) Extrem Other: Left lower extremity: Rope-like tortuosities (appx 4-6/7 cm in length) noted from the lateral/posterior thigh behind the left knee towards the mid calf medially. Not painful to palpation. Trace peripheral edema noted. Slight discoloration to the leg noted. Palpable DP pulses. Right lower extremity: Smaller, less than 2-3 cm tortuosities noted on the medial aspect of the knee CEAP: C - 3/4 E - primary A - superficial P - reflux General: Yes normal to inspection, Yes full ROM, Yes capillary refill normal and Yes normal gait Assessment & Plan Assessment & Plan (1) Varicose veins of both lower extremities with inflammation: Code(s): I83.11 - Varicose veins of right lower extremity with inflammation; I83.12 - Varicose veins of left lower extremity with inflammation Category: Medical Plan: Kerri is presenting today on a referral from her PCP for ongoing and worsening varicose veins, and both legs, left greater than right. In short, the patient has evidence of venous insufficiency. I have discussed the pathophysiology with the patient. In addition I have provided informational material regarding venous disease to the patient. We have discussed conservative measures including compression, elevation, and exercise. We are able to provide her with a set of compression stockings today. I have taken the liberty of ordering venous insufficiency testing with the patient. They will follow up with me after testing. The patient had an opportunity to ask questions regarding the treatment plan. All questions were answered. Imaging studies, laboratory studies and physical exam results were discussed and reviewed in detail. No major barriers to understanding were identified. The patient expressed understanding and agreement with the above treatment plan. The patient is aware they should contact our office by phone for worsening of the current condition or the yury earance of new symptoms. Thank you for allowing me to participate in the vascular care of this patient. If you have any questions or concerns regarding the treatment for the above condition please do not hesitate to contact me. The office telephone contact is [phone]. This note is constructed using voice recognition software. While every effort has been made to ensure accuracy, summer school coordinator errors may have been included. Thank you for allowing me to participate in the care of your patient. Yours sincerely, ACOSTA Cormier Orders: Orders US venous duplex LE BI 1 Week I83.11 - Varicose veins of right lower extremity with inflammation, I83.12 - Varicose veins of left lower extremity with inflammation Coding Level of Care Code New Pt Level 4 (23825) Diagnoses Varicose veins of both lower extremities with inflammation I83.11; I83.12
== END 2024-05-21 11:36 | disposition home or self-care (01) ==
PROVIDERS: PCP Physician Assistant; Visit Provider Physician Assistant Surgical
DX: I83.11 Varicose veins of right lower extremity with inflammation (principal); I83.12 Varicose veins of left lower extremity with inflammation
CPT/HCPCS: 99204

== ENCOUNTER → 2024-05-21 11:01 | Outpatient (BNVA) | payer OTHER, SELFPAY | PROVIDERS: PCP Physician Assistant; Visit Provider Physician Assistant Surgical | DX: I83.11 Varicose veins of right lower extremity with inflammation (principal); I83.12 Varicose veins of left lower extremity with inflammation | CPT/HCPCS: 99202 ==

== ENCOUNTER 2024-05-29 08:58 | Outpatient (AMB) | payer OTHER, SELFPAY ==
--- NOTE | 2024-05-29 08:59 | MHC.OFFVIS ---
Vital Signs 05/29/24 09:12 Height 5 ft 9 in Weight 208 lb 15.971 oz BMI 30.9 BP 126/90 H Blood Pressure Location Rt brachial Position Sitting Pulse 56 Pulse Source Pulse Oximeter Pulse Oximetry (%) 100 Oxygen Delivery Method Room Air Intake Visit Reasons: f/u Intake Note: ESTABLISHED PATIENT for mgmt of liver abn, reflux, and anemia. Reminded of labs 3/3 Changes/concerns? C/O constipation, night sweats, and new onset of rash (thoracic). Pt states that she has started docusate for the constipation per PCP, but has not noticed any significant change. No additional GI concerns noted. Supervisor Ornamental Ironworking Required: No Accompanied by: Mother Allergies No Known Allergies Allergy (Verified 05/29/24 08:59) HPI HPI f/u: Details: LAST VISIT: Liver fibrosis Liver cirrhosis Hepatomegaly with splenomegaly, not elsewhere classified GERD (gastroesophageal reflux disease) Plan Awaiting for liver elastography previously staged at F4. Will order abdominal ultrasound with elastography and patient will do her CBC to check for anemia and check her platelets. PT and INR, CMP. Patient will do those 2-3 weeks before her next appointment. Continue low-fat, low-salt, low carb and high-protein diet. Patient has instruction and pamphlet at home to follow. Continue omeprazole daily. Avoid dietary triggers and late night snacking. Staying upright for minimum 3 hours after meals discussed with patient. Patient will follow-up in 4 months, sooner on as needed basis. Both her and her mom are agreeable to plan of care and verbalizes understanding of instructions. They were given the opportunity to ask questions and all questions answered. ? Thank you for allowing me to participate in her care Orders Orders US abdomen comp w elastography Today R79.89 Complete Blood Count no Diff Today K74.00 Prothrombin Time INR Today R74.8 Comprehensive Met. Panel Today K74.00 TODAY'S VISIT: Patient is here today for requested visit. Patient has seen Oncology at [facility] Dr. 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 Patient continues to have vascular eruptions to her face and chest. Patient also has seen vascular surgeon for varicose veins on her legs. She will undergo ultrasound. Patient reports more frequent dizziness, feeling foggy. Occasional shortness of breath. Patient also reports abdominal pain, reports constipation. PCP prescribed her Colace, however patient does not seem to see any results with that. Liver enzymes have normalized at this point. Liver elastography have improved by 10% since October. Patient still is abstaining from alcohol. She is doing the best she can to have high protein, low salt, low fat diet. We have done endoscopy and colonoscopy last year that revealed of gastric polyps to, 1 of the polyps was wheezing. No AVM seen during the procedure. Patient denies any nausea or vomiting. Denies any dyspepsia, dysphagia or odynophagia. Currently patient is taking omeprazole in her symptoms are suppressed. She is taking iron and her anemia have improved. Patient does have normal values with the last draw. She is also taking folic acid. Patient reports occasional shortness of breath and reports also sweating at night time. [facility] Medical History Bone marrow disorder Anemia Surgical History Hx of colonoscopy History of esophagogastroduodenoscopy (EGD) Hx of cholecystectomy Family History Father Diabetes Maternal Grandmother Breast cancer Family/Other Lymphoma Social History Household Members: Family Housing: Apartment Are you a primary personal carer to a significant other at home: No Do you presently have visiting nurse or other home services: No Alcohol intake: current Alcohol intake frequency: holidays/special occasions only Alcohol type: beer Patient Tobacco Use Status: Never used Tobacco e-Cigarette/Vaping Use: Never Used Second Hand Smoke Exposure: No service: No Current occupational status: employed Current occupation: [employer] Cognitive needs: No Hearing needs: No Vision needs: No Female Reproductive History Menstrual Age of Menarche: 10 Review of Systems Const Reports fatigue, Denies weight gain, Denies weight loss and Reports other (Feeling foggy) ENT Reports no additional complaints, Denies dysphagia and Denies odynophagia Card Reports no additional complaints and Reports dyspnea Resp Reports no additional complaints and Reports dyspnea GI Denies abdominal pain, Denies belching, Denies melena, Reports bloating, Denies change in bowel habits, Reports constipation, Denies dysphagia, Denies excessive flatus, Denies dyspepsia, Denies heartburn, Denies diarrhea, Denies loose stools, Denies nausea, Denies odynophagia and Denies vomiting Reports no additional complaints Musc Reports no additional complaints Skin/Breast Details: Reports on and off rash Neuro Reports no additional complaints Psych Reports no additional complaints Endo Reports no additional complaints and Reports fatigue Physical Exam Vital Signs: Last Vital Signs Pulse 56 05/29/24 09:12 BP 126/90 H 05/29/24 09:12 Pulse Ox 100 05/29/24 09:12 Oxygen Delivery Method Room Air 05/29/24 09:12 BMI result Body Mass Index 30.9 Const General: healthy appearing, no acute distress and well developed Nutritional Appearance: well nourished Orientation/consciousness: patient oriented x3 Resp Effort & Inspection: normal respiratory effort, able to speak in complete sentences, no tracheal deviation and symmetric chest movement Auscultation: clear to auscultation bilaterally Cardio Rate: regular rate GI Inspection: Yes normal to inspection and No distended Palpation (GI): Soft to palpation, not firm, nontender and No hepatosplenomegaly present Auscultation: normal bowel sounds General: Yes no CVA tenderness Back/Spine/Pelvis Back: no CVA tenderness Skin Other: Red rash on face and chest General skin exam: elasticity normal, turgor normal and dry skin Neuro General: patient oriented x3 Psych Appearance: grossly normal Mental Status: mental status grossly normal Assessment & Plan Assessment & Plan (1) Constipation: Code(s): K59.00 - Constipation, unspecified Category: Medical Qualifiers: Constipation type: drug induced constipation Qualified Code(s): K59.03 - Drug induced constipation (2) Liver fibrosis: Code(s): K74.00 - Hepatic fibrosis, unspecified Category: Medical (3) GERD (gastroesophageal reflux disease): Code(s): K21.9 - Gastro-esophageal reflux disease without esophagitis Category: Medical Qualifiers: Esophagitis presence: without esophagitis Qualified Code(s): K21.9 - Gastro-esophageal reflux disease without esophagitis (4) Anemia: Code(s): D64.9 - Anemia, unspecified Category: Medical Qualifiers: Anemia type: unspecified type Qualified Code(s): D64.9 - Anemia, unspecified (5) Total bilirubin, elevated: Code(s): R17 - Unspecified jaundice Category: Medical (6) Skin rash: Code(s): R21 - Rash and other nonspecific skin eruption Category: Medical Plan Patient will continue follow-up with Oncology at [facility] as well as Dr. Guerra as needed. Continue taking iron as ordered. Will do CT to rule out AVM in her liver, lungs, brain. Disorder is driven by patient symptoms like feeling more foggy, increased shortness of breath and abdominal pain. We will in addition Rule out lupus, Sjogren's. Will send patient for capsule endoscopy. Will hold off on doing biopsy of the liver due to possible bleed we will re-evaluate the CT 1st. We will recheck PT and INR before sending patient. Continue current low salt, low fat, low carb diet. Continue protein. So far we rule out multiple autoimmune disorders when it comes to her liver. She does have a hepatomegaly and splenomegaly on ultrasound. We will repeat ultrasound again in 5-6 months to re-evaluate. Currently elastography has improved. Liver fibrosis panel also better. Continue avoiding alcohol. Patient has appointment already with and will try to keep it. We will call patient with the results. Both patient and mom are agreeable to plan of care and verbalized understanding of instructions. They were given the opportunity to ask questions and all questions answered. Thank you for allowing me to participate in her care Orders: Orders Capsule Endoscopy -GI Use Only Today CT angio abdomen Today Q27.30 - Arteriovenous malformation, site unspecified Reflex Titer and Pattern Today R74.8 - Abnormal levels of other serum enzymes Liver Panel Today R74.01 - Elevation of levels of liver transaminase levels Erythrocyte Sedimentation Rate Today R79.89 - Other specified abnormal findings of blood chemistry Creatinine Today R10.11 - Right upper quadrant pain Histone Antibody Today K74.00 - Hepatic fibrosis, unspecified DNA Double Stranded-Crithidia Today R74.8 - Abnormal levels of other serum enzymes Sjogren's Antibodies Today K74.00 - Hepatic fibrosis, unspecified CT angio head Today Q27.30 - Arteriovenous malformation, site unspecified Prothrombin Time INR Today R74.8 - Abnormal levels of other serum enzymes IRON PROFILE Today D64.9 - Anemia, unspecified Blood Urea Nitrogen Today R10.11 - Right upper quadrant pain CT angio chest PE protocol Today Q27.30 - Arteriovenous malformation, site unspecified Medications: New sennosides (Natural Senna Laxative) 17.2 mg (2 x 8.6 mg) PO BEDTIME 180 tabs 3RF constipation K59.00 - Constipation, unspecified Coding Level of Care Code Est Pt Level 4 (92507) Complex EM visit Add On G2211 Diagnoses Drug-induced constipation K59.03 Constipation type: drug induced constipation Liver fibrosis K74.00 Gastroesophageal reflux disease without esophagitis K21.9 Esophagitis presence: without esophagitis Anemia, unspecified type D64.9 Anemia type: unspecified type Total bilirubin, elevated R17 Skin rash R21 Time Spent (min) 40 Comment 25 minute spent with patient and additional 15 minutes spent reviewing her records
[2024-05-29 09:12] VITALS: BP 126/90; PULSE 56; O2SAT 100; BMI 30.9
--- OUTSIDE RECORDS SUMMARY | 2024-05-29 09:48 | XMS_ITS | Clinical Summary ---
Author Organization [facility] Address [address] [place] [id number] Phone Care Team Providers Care Rotary Soil Stabilizer Operator Name Role Phone Unavailable Primary Care Provider [...]
--- OUTSIDE RECORDS SUMMARY | 2024-05-29 09:48 | XMS_ITS | Encounter Summary ---
Author Organization [facility] Address [address] [place] [address] Phone Care Team Providers Care Water Safety Teacher Name Role Phone Emma Lizarraga MD Primary Care Provider [phone] Encounter Details Date Type Department Care Team (Late st Contact Info) Description 11/10/2016 Conversion Encounter [facility] [place] [address] [place] [address] Social History Tobacco Use Types Packs/Day Years [...] on filedocumented in this encounter Care Teams Water Safety Teacher Relationship Specialty Start Date End Date Emma Lizarraga MD [address] [place] [address] PCP - General 11/04/16 05/11/22 documented as of this encounter
== END 2024-05-29 10:04 | disposition home or self-care (01) ==
PROVIDERS: PCP Physician Assistant; Visit Provider Nurse Practitioner Family
DX: K59.03 Drug induced constipation (principal); K74.00 Hepatic fibrosis, unspecified; K21.9 Gastro-esophageal reflux disease without esophagitis; D64.9 Anemia, unspecified
CPT/HCPCS: 99214; G2211

== ENCOUNTER → 2024-05-29 08:58 | Outpatient (BNVA) | payer OTHER, SELFPAY | PROVIDERS: PCP Physician Assistant; Visit Provider Nurse Practitioner Family | DX: K59.03 Drug induced constipation (principal); K74.00 Hepatic fibrosis, unspecified; K21.9 Gastro-esophageal reflux disease without esophagitis; D64.9 Anemia, unspecified; R17 Unspecified jaundice; R21 Rash and other nonspecific skin eruption | CPT/HCPCS: 99212 ==

== ENCOUNTER 2024-06-12 10:35 | Outpatient (REF) | payer OTHER, SELFPAY ==
--- NOTE | ~2024-06-12 | US_ITS ---
EXAMINATION: US LOWER EXTREMITY VENOUS (REFLUX EXAM), BILATERAL CLINICAL INFORMATION: Varices COMPARISON: None. TECHNIQUE: Color flow triplex imaging and compression Doppler was performed to evaluate both the deep and the superficial systems bilaterally. To evaluate the superficial system, the examination was performed in the upright position. Color-flow Doppler ultrasound and compression ultrasound were utilized. In addition, maneuvers were utilized to demonstrate reflux. FINDINGS: 1. DEEP VENOUS ULTRASOUND OF THE RIGHT LOWER EXTREMITY: Common Femoral Vein: Compressible, normal respiratory variation and augmented flow. Femoral Vein: Compressible, normal color flow and augmentation. Popliteal Vein: Compressible, normal augmentation. Deep Reflux: There is a 1084 ms reflux at the common femoral vein. There is no evidence of a Tineo's cyst. 2. SUPERFICIAL ULTRASOUND WITH DOPPLER OF RIGHT LOWER EXTREMITY: GREAT SAPHENOUS VEIN: Saphenofemoral Junction: 0.8 cm; Reflux: 0 ms Proximal Thigh: 0.3 cm; Reflux: 0 ms Mid Thigh: 0.3 cm; Reflux: 1052 ms Distal Thigh: 0.3 cm; Reflux: 2460 ms At Knee: 0.4 cm; Reflux: 1020 ms Proximal Calf: 0.3 cm; Reflux: 2476 ms Mid Calf: 0.3 cm; Reflux: 452 ms Distal Calf: 0.3 cm; Reflux: 0 ms DUPLICATED MEDIAL GREAT SAPHENOUS VEIN: Diameter: None imaged Reflux: NA DUPLICATED LATERAL GREAT SAPHENOUS VEIN: Diameter: None imaged Reflux: NA SMALL SAPHENOUS VEIN: Saphenopopliteal Junction: 0.4 cm; Reflux: 0 ms Proximal: 0.3 cm; Reflux: 0 ms Distal: 0.2 cm; Reflux: 0 ms VEIN OF GIACOMINI: Size: NA Reflux: NA PERFORATORS: Location: Great saphenous vein in the mid and distal calf. Size: 0.2-0.5 cm. Reflux: NA VARICOSITIES: Location: Small femoral vein junction. Size: 0.5 cm. Reflux: 1944 ms. 3. DEEP VENOUS ULTRASOUND OF THE LEFT LOWER EXTREMITY: Common Femoral Vein: Compressible, normal respiratory variation and augmented flow. Femoral Vein: Compressible, normal color flow and augmentation. Popliteal Vein: Compressible, normal augmentation. Deep Reflux: There is a 924 ms reflux in the common femoral vein. There is no evidence of a Tineo's cyst. 4. SUPERFICIAL ULTRASOUND WITH DOPPLER OF LEFT LOWER EXTREMITY: GREAT SAPHENOUS VEIN: Saphenofemoral Junction: 0.9 cm; Reflux: 944 ms Proximal Thigh: 1.0 cm; Reflux: 1772 ms Mid Thigh: 0.7 cm; Reflux: 1104 ms Distal Thigh: 0.6 cm; Reflux: 2432 ms At Knee: 0.4 cm; Reflux: 1648 ms Proximal Calf: 0.2 cm; Reflux: 0 ms Mid Calf: 0.2 cm; Reflux: 0 ms Distal Calf: 0.1 cm; Reflux: 0 ms DUPLICATED MEDIAL GREAT SAPHENOUS VEIN: Diameter: None imaged Reflux: NA DUPLICATED LATERAL GREAT SAPHENOUS VEIN: Diameter: None imaged. Reflux: NA SMALL SAPHENOUS VEIN: Saphenopopliteal Junction: 0.3 cm; Reflux: 0 ms Proximal: 0.4 cm; Reflux: 2664 ms Distal: 0.3 cm; Reflux: 0 ms VEIN OF GIACOMINI: Size: NA Reflux: NA PERFORATORS: Location: Great saphenous vein at the calf region and small saphenous vein in the mid segment. Size: 0.3 cm. Reflux: 904 ms at the great saphenous vein proximal calf segment. VARICOSITIES: Location: The great saphenous vein mid thigh to the proximal calf and small saphenous vein in the mid segment. Size: 0.4-0.8 cm. Reflux: 2320 ms at the small saphenous vein and 2636 ms at the knee level of the great saphenous vein. US/US venous duplex LE BI IMPRESSION: Right: Venous insufficiency, great saphenous vein from the mid thigh to the mid calf. Perforators without reflux and varices with reflux. Reflux in the common femoral vein.. Left: Venous insufficiency, great saphenous vein from the superficial femoral junction to the knee level. And small saphenous vein at the mid calf. Venous insufficiency in the common femoral vein and popliteal vein. Varices with reflux in the knee level of great saphenous vein and mid thigh small saphenous vein. Perforators in the proximal calf with reflux. Electronically signed by: Malachi Leong MD 06/12/2024 03:49 PM EDT
--- OUTSIDE RECORDS SUMMARY | 2024-06-12 12:34 | XMS_ITS | Clinical Summary ---
Author Organization [facility] Address [address] [place] [id number] Phone Care Team Providers Care Head Golf Professional Name Role Phone Unavailable Primary Care [...]
--- OUTSIDE RECORDS SUMMARY | 2024-06-12 12:34 | XMS_ITS | Encounter Summary ---
Author Organization [facility] Address [address] [place] [address] Phone Care Team Providers Care Cost Estimating Manager Name Role Phone Emma Lizarraga MD Primary Care Provider [phone] Encounter Details Date Type Department Care Team (Late st Contact Info) Description 11/10/2016 Conversion Encounter [facility] [place] [address] [place] [address] Social History Tobacco Use Types Packs/Day Years [...] on filedocumented in this encounter Care Teams Cost Estimating Manager Relationship Specialty Start Date End Date Emma Lizarraga MD [address] [place] [address] PCP - General 11/04/16 05/11/22 documented as of this encounter
== END 2024-06-12 10:36 | disposition home or self-care (01) ==
LOC: HO.US 10:35
PROVIDERS: PCP Physician Assistant; Visit Provider Physician Assistant Surgical
DX: I83.11 Varicose veins of right lower extremity with inflammation (principal); I83.12 Varicose veins of left lower extremity with inflammation
CPT/HCPCS: 93970

== ENCOUNTER → 2024-06-12 10:37 | Outpatient (BNV) | payer OTHER, SELFPAY | PROVIDERS: PCP Physician Assistant; Visit Provider Radiology Diagnostic Radiology | DX: I83.12 Varicose veins of left lower extremity with inflammation (principal); I83.11 Varicose veins of right lower extremity with inflammation | CPT/HCPCS: 93970 ==

== ENCOUNTER 2024-06-18 13:42 | Outpatient (REF) | payer OTHER, SELFPAY ==
[2024-06-18 14:30] LABS: Hematocrit 38.2 % (37.0-47.0); Hemoglobin 12.8 g/dl (12.0-16.0); Mean Corpuscular HGB Conc 33.5 g/dl (31.0-35.0); Mean Corpuscular Hemoglobin 28.8 pg (27.0-33.0); Mean Platelet Volume 10.2 fL (9.4-12.3); Platelet Count 144 X10*3/uL (160-400); Red Blood Count 4.44 X10*6/uL (4.20-5.50); Red Cell Distribution Width 12.9 % (11.0-16.0); White Blood Count 5.8 X10*3/uL (4.8-10.8)
[2024-06-18 14:34] LABS: INTERNATIONAL NORM RATIO 1.2 (0.9-1.1); Prothrombin Time 14.3 SEC (10.9-12.4)
[2024-06-18 15:10] LABS: Erythrocyte Sedimentation Rate 7 MM/HR (0-20)
[2024-06-18 15:11] LABS: Alanine Aminotransferase 23 U/L (0-31); Albumin Level 4.4 g/dL (3.5-5.0); Alkaline Phosphatase 59 U/L (39-117); Anion Gap 11 (12-20); Aspartate Amino Transferase 29 U/L (5-31); Bilirubin Direct 0.6 mg/dL (0.0-0.5); Bilirubin Total 1.5 mg/dL (0.0-1.0); Blood Urea Nitrogen 15 mg/dL (9-16); Calcium 9.6 mg/dL (8.4-10.2); Carbon Dioxide 24 mmol/L (22-29); Chloride 109 mmol/L (96-108); Estimated Glomerular Filt Rate > 60; Glucose Random 86 mg/dL (60-115); Iron 92 mcg/dL (30-160); Percent Iron Saturation 33 % (15-50); Potassium 3.9 mmol/L (3.3-5.1); Sodium 140 mmol/L (135-145); Total Iron Binding Capacity 276 mcg/dL (228-428); Total Protein 7.6 g/dL (6.5-8.0); Unsaturated Iron Binding 184 ug/dL
[2024-06-20 13:33] LABS: Antibody to SS-A Antigen <1.0 NEG AI (<1.0 NEG); Antibody to SS-B Antigen <1.0 NEG AI (<1.0 NEG)
[2024-06-21 08:33] LABS: DNAds, Crithidia Antibody Negative (Negative)
[2024-06-21 20:19] LABS: Histone Antibody <1.0 U (<1.0)
[2024-06-23 08:13] LABS: Anti Nuclear Antibody Screen NEGATIVE (NEGATIVE)
== END 2024-06-18 13:43 | disposition home or self-care (01) ==
LOC: HO.LAB 13:42
PROVIDERS: PCP Physician Assistant; Visit Provider Nurse Practitioner Family
DX: R74.8 Abnormal levels of other serum enzymes (principal)
CPT/HCPCS: 36415; 80053; 82248; 83516; 83540; 85027; 85610; 85652; 86038; 86235; 86255

== ENCOUNTER 2024-06-27 11:28 | Outpatient (AMB) | payer OTHER, SELFPAY ==
--- NOTE | 2024-06-27 11:34 | A.OFFPC_ITS ---
Vital Signs 06/27/24 11:35 Height 5 ft 9 in Weight 206 lb 4 oz BMI 30.5 BP 154/110 H Blood Pressure Location Lt brachial Position Sitting Pulse 67 Pulse Source Pulse Oximeter Temp 97.3 F Temp Source Temporal Artery Scan Pulse Oximetry (%) 100 Oxygen Delivery Method Room Air Intake Visit Reasons: MRI request Guyline Operator Required: No Accompanied by: Self / Same As Patient Allergies No Known Allergies Allergy (Verified 06/27/24 11:50) Medication List - Last Reconciled 06/27/24 by Abdi Lester PA-C blood pressure monitor take blood pressure reading once a day as needed cholecalciferol (vitamin D3) 50 mcg PO DAILY cyanocobalamin (vitamin B-12) 1,000 mcg sublingual DAILY docusate sodium (Colace) 100 mg PO BID 30 days ferrous sulfate 325 mg PO BID 90 days folic acid 1 mg PO DAILY lorazepam 0.5 mg PO BID PRN 5 days omeprazole 20 mg PO DAILY ondansetron 4 mg PO Q6H sennosides (Natural Senna Laxative) 17.2 mg (2 x 8.6 mg) PO BEDTIME sertraline 50 mg PO DAILY 30 days sertraline 100 mg PO DAILY 30 days triamcinolone acetonide 0.1% 1 appl topical DAILY 30 days Tobacco use date assessed: 05/15/24 Dental Screening Dental Screen Date: 05/15/24 HPI MRI request HPI Details Patient has seen Oncology at [facility] as well as our hospice music therapy for her anemia and seems that anemia has stabilized. There are concerns for a small vessel bleeding disorder AVMs thus GI sending for CT of liver lungs and brain. Due to patient's increased brain fog confusion and anxious symptoms will try to get MRI of brain to evaluate for intracranial bleed. Symptoms started approximately 1.5 weeks ago, including really bad headaches, confusion, and memory difficulties impacting her daily activities at work. She denies auras or visual disturbances. She also has a persistent pruritic rash and increased night sweats, which are of new concern, worsening in the frequency of occurrence. Additional concerns include irregular and nailing machine feeder menstrual cycles recently noted alongside constipation issues aggravated by rectal bleeding from suspected hemorrhoids. Family history raised concerns about potential hereditary hemorrhagic telangiectasia (HHT) due to having dermatological manifestations over chest, lips and extremities. She is currently under evaluation, awaiting further imaging studies which may provide insight into these ongoing symptoms, such as CTs scheduled for further assessment of potential underlying causes. PFSH Medical History Bone marrow disorder Anemia Surgical History Hx of colonoscopy History of esophagogastroduodenoscopy (EGD) Hx of cholecystectomy Family History Father Diabetes Maternal Grandmother Breast cancer Family/Other Lymphoma Social History Household Members: Family Housing: Apartment Are you a primary palliative care specialist to a significant other at home: No Do you presently have visiting nurse or other home services: No Alcohol intake: current Alcohol intake frequency: holidays/special occasions only Alcohol type: beer Patient Tobacco Use Status: Never used Tobacco e-Cigarette/Vaping Use: Never Used Second Hand Smoke Exposure: No service: No Current occupational status: employed Current occupation: [employer] Cognitive needs: No Hearing needs: No Vision needs: No Female Reproductive History Menstrual Age of Menarche: 10 Questionnaire Thrive Questionnaire Date Thrive assessed: 05/15/24 MIRYAM-7 AMB Questionnaire MIRYAM-7 Date MIRYAM - 7 assessed: 05/15/24 Source: Developed by Drs. Amadeo Rangel, Rosa Isela Cameron, Chris Isabel and colleagues, with an educational pino from [employer]. Review of Systems Const Denies headache(s) Eyes Denies loss of vision ENT Denies vertigo, Denies dizziness, Denies headache(s) and Denies sore throat Card Denies chest pain, Denies leg edema and Denies lightheadedness Resp Denies cough, Denies hemoptysis and Denies wheezing GI Denies abdominal pain, Denies melena, Denies constipation, Denies diarrhea and Denies vomiting Denies urinary frequency, Denies dysuria and Denies urinary urgency Musc Denies arthralgias, Denies joint swelling, Denies numbness and Denies tingling Neuro Denies Abnormal speech present, Denies behavioral changes, Denies vertigo, Denies dizziness, Denies headache(s), Denies loss of vision, Denies memory loss, Denies numbness and Denies tingling Psych Denies anxiety, Denies behavioral changes, Denies depression, Denies memory loss and Denies panic attacks Felipe/Lymph Denies easy bleeding and Denies easy bruising Aller/Immun Denies wheezing Physical exam (Primary Care) Vital Signs: Last Vital Signs Temp 97.3 F 06/27/24 11:35 Pulse 67 06/27/24 11:35 BP 154/110 H 06/27/24 11:35 Pulse Ox 100 06/27/24 11:35 Oxygen Delivery Method Room Air 06/27/24 11:35 BMI result Body Mass Index 30.5 Tobacco/Smoking Status: Tobacco use Status Tobacco use date assessed 05/15/24 06/27/24 11:37 Patient Tobacco Use Status Never used Tobacco 06/27/24 11:37 e-Cigarette/Vaping Use Never Used 06/27/24 11:37 Thrive Assessment: Date of Thrive Assessment Date Thrive assessed 05/15/24 06/27/24 11:37 Const General: healthy appearing, no acute distress, alert and awake Nutritional Appearance: well nourished Orientation/consciousness: oriented to person, oriented to place and oriented to time HENMT Ears: TM's normal bilaterally General nose exam: Normal nasal mucous membranes and turbinates present Eyes Conjunctivae: conjunctivae normal Sclerae: sclerae normal Pupils: Equal, round and reactive pupils present Neck Neck: Yes no lymphadenopathy and Yes no JVD Thyroid: Thyroid normal Carotids: no bruits Resp Effort & Inspection: normal respiratory effort and not tachypneic Auscultation: no crackles, no rales, no rhonchi and no wheezes Cardio Rate: regular rate Rhythm: regular rhythm Heart sounds: no murmurs and normal S1 and S2 GI Palpation (GI): Soft to palpation, nontender, no hepatomegaly and no s plenomegaly Auscultation: normal bowel sounds Skin General skin exam: no rashes or lesions noted and dry skin Neuro General: oriented to person, oriented to place and oriented to time Cranial nerves: Yes Equal, round and reactive pupils present Speech: No Abnormal speech present Gait exam (Neuro): Normal gait present Motor exam (neuro): no tremor noted Extrem Right upper extremity: full ROM Left upper extremity: full ROM Right lower extremity: full ROM; no edema Left lower extremity: full ROM; no edema Psych Mental Status: mental status grossly normal Speech and movement: Normal speech and movement present Affect: normal affect Attitude: cooperative Thought process: Normal thought process present Coding Level of Care Code Est Pt Level 4 (15260) Diagnoses Brain fog R41.89 Confusion R41.0 Assessment & Plan Assessment & Plan (1) Brain fog: Code(s): R41.89 - Other symptoms and signs involving cognitive functions and awareness Category: Medical Plan: Due to patient's symptoms of increased brain fog, anxious symptoms and confusion will try to do more urgent evaluation. Will send for brain MRI imaging to rule out intracranial bleed or any structural intracranial abnormality. In the meantime she does report lorazepam is helpful her anxious symptoms. We did increase her sertraline to 100 mg. We did discuss possibly weaning her off of SSRI therapy At this point is unclear what has been causing all of these symptoms. She is due for GI capsule camera to evaluate for any bleed. We did discuss the possibility of Lyme thus will be sending for tick-borne illness testing. Also blood pressure seems to be elevated today though unclear if this is due to being a bit anxious. She does have a blood pressure monitor at home she will monitor with goal blood pressure to be below 140/90. (2) Confusion: Code(s): R41.0 - Disorientation, unspecified Category: Medical Plan: As above Orders: Orders Complete Blood Count no Diff Today D64.9 - Anemia, unspecified IRON PROFILE Today D50.9 - Iron deficiency anemia, unspecified, D64.9 - Anemia, unspecified UA CC w/rflx Micro + Cult Today R30.0 - Dysuria, R41.0 - Disorientation, unspecified Comprehensive Met. Panel Today I10 - Essential (primary) hypertension Lyme IgG/IgM w/reflex to WB Today D64.9 - Anemia, unspecified, R41.0 - Disorientation, unspecified, R41.89 - Other symptoms and signs involving cognitive functions and awareness Tick-borne Disease Molecular Today D64.9 - Anemia, unspecified Medications: Refilled lorazepam 0.5 mg PO BID 5 days PRN 10 tabs 0RF anxiety F41.1 - Generalized anxiety disorder
[2024-06-27 11:35] VITALS: BP 154/110; PULSE 67; TEMP 36.3; O2SAT 100; BMI 30.5
--- OUTSIDE RECORDS SUMMARY | 2024-06-27 12:46 | XMS_ITS | Clinical Summary ---
Author Organization [facility] Address [address] [place] [address] Phone Care Team Providers Care Electrical Tech/Project Manager Name Role Phone Unavailable Primary Care Provider [...]
--- OUTSIDE RECORDS SUMMARY | 2024-06-27 12:46 | XMS_ITS | Encounter Summary ---
Author Organization [facility] Address [address] [place] [address] Phone Care Team Providers Care Glass Mould Cleaner Name Role Phone Emma Lizarraga MD Primary Care Provider [phone] Encounter Details Date Type Department Care Team (Late st Contact Info) Description 11/10/2016 Conversion Encounter [facility] [place] [address] [place] [address] Social History Tobacco Use Types Packs/Day Years [...] on filedocumented in this encounter Care Teams Glass Mould Cleaner Relationship Specialty Start Date End Date Emma Lizarraga MD [address] [place] [address] PCP - General 11/04/16 05/11/22 documented as of this encounter
== END 2024-06-27 12:28 | disposition home or self-care (01) ==
LOC: HO.HMCH 11:28
PROVIDERS: PCP Physician Assistant; Visit Provider Physician Assistant
DX: R41.89 Other symptoms and signs involving cognitive functions and awareness (principal); R41.0 Disorientation, unspecified

== ENCOUNTER 2024-06-27 11:28 | Outpatient (REF) | payer OTHER, SELFPAY ==
[2024-06-27 13:09] LABS: Appearance Urine Clear; Color Urine Yellow; Glucose Urine UA Negative (Negative); Leukocyte Esterase Urine Moderate (2+) (Negative); Nitrite Urine Negative (Negative); PH 5.5 (5.0-9.0); Specific Gravity - Urine 1.025 (1.005-1.025); UMIC TRIGGER UACC YES; Urine Blood Negative (Negative); Urine Ketones Negative (Negative); Urine Protein Negative (Neg-Trace)
[2024-06-27 13:25] LABS: Bacteria Urine 4+ (None Seen); RBC Urine 0-2 /HPF (0-2); UACC Culture Trigger YES
[2024-06-27 13:42] LABS: Hemoglobin 13.9 g/dl (12.0-16.0); Mean Corpuscular HGB Conc 33.9 g/dl (31.0-35.0); Mean Corpuscular Hemoglobin 29.3 pg (27.0-33.0); Mean Corpuscular Volume 86.5 fL (80.0-98.0); Mean Platelet Volume 10.6 fL (9.4-12.3); Platelet Count 172 X10*3/uL (160-400); Red Blood Count 4.74 X10*6/uL (4.20-5.50); White Blood Count 7.8 X10*3/uL (4.8-10.8)
--- OUTSIDE RECORDS SUMMARY | 2024-06-27 13:42 | XMS_ITS | Encounter Summary ---
Author Organization [facility] Address [address] [place] [address] Phone Care Team Providers Care Diesel Stationary Engineer Name Role Phone Emma Lizarraga MD Primary Care Provider [phone] Encounter Details Date Type Department Care Team (Late st Contact Info) Description 11/10/2016 Conversion Encounter [facility] [place] [address] [place] [address] Social History Tobacco Use Types Packs/Day Years [...] on filedocumented in this encounter Care Teams Diesel Stationary Engineer Relationship Specialty Start Date End Date Emma Lizarraga MD [address] [place] [address] PCP - General 11/04/16 05/11/22 documented as of this encounter
--- OUTSIDE RECORDS SUMMARY | 2024-06-27 13:42 | XMS_ITS | Clinical Summary ---
Author Organization [facility] Address [address] [place] [address] Phone Care Team Providers Care Investment Strategist Name Role Phone Unavailable Primary Care Provider [...]
[2024-06-27 14:08] LABS: Alanine Aminotransferase 26 U/L (0-31); Albumin Level 4.7 g/dL (3.5-5.0); Alkaline Phosphatase 62 U/L (39-117); Anion Gap 10 (12-20); Aspartate Amino Transferase 32 U/L (5-31); Bilirubin Total 1.2 mg/dL (0.0-1.0); Blood Urea Nitrogen 16 mg/dL (9-16); Calcium 9.9 mg/dL (8.4-10.2); Carbon Dioxide 26 mmol/L (22-29); Chloride 108 mmol/L (96-108); Estimated Glomerular Filt Rate > 60; Glucose Random 72 mg/dL (60-115); Iron 108 mcg/dL (30-160); Percent Iron Saturation 36 % (15-50); Sodium 140 mmol/L (135-145); Total Iron Binding Capacity 297 mcg/dL (228-428); Unsaturated Iron Binding 189 ug/dL
[2024-06-28 17:19] LABS: A. Phagocytphilium DNA,RT-PCR NOT DETECTED (NOT DETECTED); Babesia Microti DNA, RT-PCR NOT DETECTED (NOT DETECTED); Borrelia Miyamotoi,DNA RT-PCR NOT DETECTED (NOT DETECTED); E.Chaffeensis DNA RT-PCR NOT DETECTED (NOT DETECTED); Lyme(Borrelia ssp)DNA RT-PCR NOT DETECTED (NOT DETECTED)
[2024-06-28 22:04] LABS: Lyme Abs Screen <0.90 index
== END 2024-06-27 11:29 | disposition home or self-care (01) ==
LOC: HO.LAB 11:28
PROVIDERS: PCP Physician Assistant; Visit Provider Physician Assistant
DX: R41.89 Other symptoms and signs involving cognitive functions and awareness (principal); R41.0 Disorientation, unspecified; D50.9 Iron deficiency anemia, unspecified; I10 Essential (primary) hypertension; R30.0 Dysuria
CPT/HCPCS: 36415; 80053; 81001; 83540; 85027; 86617; 86618; 87086; 87468; 87469; 87478; 87484; 87798; 99212

== ENCOUNTER → 2024-06-28 09:44 | Outpatient (BNV) | payer OTHER, SELFPAY | PROVIDERS: PCP Physician Assistant; Visit Provider Radiology Diagnostic Radiology | DX: R14.0 Abdominal distension (gaseous) (principal); R41.89 Other symptoms and signs involving cognitive functions and awareness | CPT/HCPCS: 70551 ==

== ENCOUNTER 2024-06-28 09:55 | Outpatient (REF) | payer OTHER, SELFPAY ==
--- NOTE | ~2024-06-28 | MR_ITS ---
EXAMINATION: MR BRAIN WITHOUT CONTRAST CLINICAL INFORMATION: Disorientation , unspecified. COMPARISON: None available. TECHNIQUE: MRI of the brain was obtained using routine sequences without contrast. FINDINGS: No acute intracranial hemorrhage, mass effect, midline shift, hydrocephalus or herniation. Hollis-white matter differentiation is normal. No restricted diffusion. 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 Posterior cranial fossa contents demonstrated no signal abnormality or gross mass effect. Midline structures are normal. Sellar/suprasellar region demonstrated no gross signal abnormality or masses. Craniocervical junction is intact and normal. Flow-void signal within the main vessels is normal. MR/MR head/brain wo con IMPRESSION: No acute or structural brain abnormality. Electronically signed by: Malachi Leong MD 06/28/2024 11:25 AM EDT
--- OUTSIDE RECORDS SUMMARY | 2024-06-28 11:13 | XMS_ITS | Encounter Summary ---
Author Organization [facility] Address [address] [place] [address] Phone Care Team Providers Care Shafting Cleaner Name Role Phone Emma Lizarraga MD Primary Care Provider [phone] Encounter Details Date Type Department Care Team (Late st Contact Info) Description 11/10/2016 Conversion Encounter [facility] [place] [address] [place] [address] Social History Tobacco Use Types Packs/Day Years [...] on filedocumented in this encounter Care Teams Shafting Cleaner Relationship Specialty Start Date End Date Emma Lizarraga MD [address] [place] [address] PCP - General 11/04/16 05/11/22 documented as of this encounter
--- OUTSIDE RECORDS SUMMARY | 2024-06-28 11:13 | XMS_ITS | Clinical Summary ---
Author Organization [facility] Address [address] [place] [address] Phone Care Team Providers Care Creative Technologist Name Role Phone Unavailable Primary Care Provider [...]
== END 2024-06-28 09:56 | disposition home or self-care (01) ==
LOC: HO.MRI 09:55
PROVIDERS: PCP Physician Assistant; Visit Provider Physician Assistant
DX: R41.89 Other symptoms and signs involving cognitive functions and awareness (principal); R41.0 Disorientation, unspecified; Q28.2 Arteriovenous malformation of cerebral vessels
CPT/HCPCS: 70551

== ENCOUNTER 2024-07-02 10:15 | Outpatient (AMB) | payer OTHER, SELFPAY ==
--- NOTE | 2024-07-02 10:19 | A.OFFVIS_ITS ---
Vital Signs 07/02/24 10:20 Height 5 ft 8 in Weight 209 lb BMI 31.8 Intake Visit Reasons: follow up s/p US 06/18/24 Intake Note: Follow up US 06/18/24. Pt states left LE worse than the right leg. Does states both legs have large VV. States they started 10 yrs ago. States that she is getting leg pain worsening over the years. City Carrier Required: No Accompanied by: Self / Same As Patient Allergies No Known Allergies Allergy (Verified 06/27/24 11:50) HPI HPI follow up s/p US 06/18/24: Details: The patient is a 34-year-old female presenting with a follow-up for venous insufficiency. She has clinically confirmed venous insufficiency involving both great saphenous veins, with a distinctively larger vein dilation on the left side. 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 Symptoms include pain, swelling, and heaviness, particularly in the left leg. She is also undergoing GI workup for anemia. She now presents for follow-up with venous insufficiency testing. [facility] Medical History Bone marrow disorder Anemia Surgical History Hx of colonoscopy History of esophagogastroduodenoscopy (EGD) Hx of cholecystectomy Family History Father Diabetes Maternal Grandmother Breast cancer Family/Other Lymphoma Social History Household Members: Family Housing: Apartment Are you a primary healthcare business analyst to a significant other at home: No Do you presently have visiting nurse or other home services: No Alcohol intake: current Alcohol intake frequency: holidays/special occasions only Alcohol type: beer Patient Tobacco Use Status: Never used Tobacco e-Cigarette/Vaping Use: Never Used Second Hand Smoke Exposure: No service: No Current occupational status: employed 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 Cognitive needs: No Hearing needs: No Vision needs: No Female Reproductive History Menstrual Age of Menarche: 10 Review of Systems Const Reports as per HPI ENT Reports no additional complaints Card Denies chest pain, Denies chest pain at rest and Denies chest pain with activity Resp Denies chest congestion and Denies cough GI Reports no additional complaints Musc Details: pain over varicosities, aching of lower extremities, swelling, cramping, heaviness and tiredness, itching Denies abnormal gait Skin/Breast Reports pruritus and Denies wounds Neuro Reports no additional complaints and Denies abnormal gait Psych Denies no additional complaints Physical Exam Vital Signs: BMI result Body Mass Index 31.8 Const General: cooperative, healthy appearing and comfortable Orientation/consciousness: oriented to person, oriented to place and oriented to time Neck Carotids: no bruits Chest Chest palpation & inspection: normal inspection of the chest and normal palpation of entire chest wall Resp Effort & Inspection: normal respiratory effort and able to speak in complete sentences Cardio Rate: regular rate Heart sounds: S1 normal heart sound present and S2 normal heart sound present Peripheral pulses: Peripheral pulses 2+ throughout GI Inspection: Yes normal to inspection Skin Other: +2 edema, large rope-like varicosities greater than 4 mm CEAP Classification C4 - skin color changes Ep - Etiology Primary As - superficial veins P - reflux General skin exam: dry skin Neuro General: oriented to person, oriented to place and oriented to time Extrem Right lower extremity: full ROM, normal capillary refill and edema Left lower extremity: full ROM, normal capillary refill and edema Psych Mental Status: mental status grossly normal Results Reviewed Results Reviewed: Brief summary of venous insufficiency testing is as follows: right great saphenous vein: Positive right small saphenous vein: negative right accessory vein: none present left great saphenous vein: Positive left small saphenous vein: negative left accessory vein: none present Please note there is no evidence of any venous aneurysms or significant tortuosity Assessment & Plan Assessment & Plan (1) Varicose veins of left lower extremity with inflammation: Code(s): I83.12 - Varicose veins of left lower extremity with inflammation Category: Medical Plan: This patient has varicose veins with inflammation. They continue to be a source of discomfort for the patient. The patient has tried conservative treatment with compression, leg elevation and exercise program for over 3 months time. They have been compliant with all treatment. This has provided minimal relief for the patient. I do not anticipate this course of treatment will alter the underlying etiology. The patient has been scheduled for lower extremity venous treatment inclusive of --- left great saphenous vein radiofrequency ablation. Risks, benefits, and complications of this procedure has been discussed in detail with the patient including but not limited to bleeding, infection, and the development of a DVT. The patient has demonstrated a clear understanding and has consented. We will schedule the patient as soon as possible. Thank you for allowing us to participate in this patient's care. If there are any questions or concerns please do not hesitate to contact us. Coding Level of Care Code Est Pt Level 4 (88661) Diagnoses Varicose veins of left lower extremity with inflammation I83.12
[2024-07-02 10:20] VITALS: BMI 31.8
--- OUTSIDE RECORDS SUMMARY | 2024-07-02 12:05 | XMS_ITS | Encounter Summary ---
Author Organization [facility] Address [address] [place] [address] Phone Care Team Providers Care Office Coordinator Receptionist Name Role Phone Emma Lizarraga MD Primary Care Provider [phone] Encounter Details Date Type Department Care Team (Late st Contact Info) Description 11/10/2016 Conversion Encounter [facility] [place] [address] [place] [address] Social History Tobacco Use Types Packs/Day Years [...] on filedocumented in this encounter Care Teams Office Coordinator Receptionist Relationship Specialty Start Date End Date Emma Lizarraga MD [address] [place] [address] PCP - General 11/04/16 05/11/22 documented as of this encounter
--- OUTSIDE RECORDS SUMMARY | 2024-07-02 12:05 | XMS_ITS | Clinical Summary ---
Author Organization [facility] Address [address] [place] [phone] Phone Care Team Providers Care Network Support Manager Name Role Phone Unavailable Primary Care [...]
== END 2024-07-02 10:46 | disposition home or self-care (01) ==
LOC: HO.HVS 10:15
PROVIDERS: PCP Physician Assistant; Visit Provider Surgery Vascular Surgery
DX: I83.12 Varicose veins of left lower extremity with inflammation (principal)
CPT/HCPCS: 99214

== ENCOUNTER → 2024-07-02 10:15 | Outpatient (BNVA) | payer OTHER, SELFPAY | PROVIDERS: PCP Physician Assistant; Visit Provider Surgery Vascular Surgery | DX: I83.12 Varicose veins of left lower extremity with inflammation (principal) | CPT/HCPCS: 99212 ==

== ENCOUNTER 2024-07-03 07:44 | Outpatient (AMB) | payer OTHER, SELFPAY ==
--- OUTSIDE RECORDS SUMMARY | 2024-07-03 07:48 | XMS_ITS | Encounter Summary ---
Author Organization [facility] Address [address] [place] [address] Phone Care Team Providers Care Payroll And Benefits Specialist Name Role Phone Emma Lizarraga MD Primary Care Provider [phone] Encounter Details Date Type Department Care Team (Late st Contact Info) Description 11/10/2016 Conversion Encounter [facility] [place] [address] [place] [address] Social History Tobacco Use Types Packs/Day Years [...] on filedocumented in this encounter Care Teams Payroll And Benefits Specialist Relationship Specialty Start Date End Date Emma Lizarraga MD [address] [place] [address] PCP - General 11/04/16 05/11/22 documented as of this encounter
--- OUTSIDE RECORDS SUMMARY | 2024-07-03 07:48 | XMS_ITS | Clinical Summary ---
Author Organization [facility] Address [address] [place] [address] Phone Care Team Providers Care Customer Supply Coordinator Name Role Phone Unavailable Primary Care Provider [...]
--- NOTE | 2024-07-11 12:55 | MHC.OFFVIS ---
Intake Visit Reasons: Video Capsule Endoscopy - [facility] Allergies No Known Allergies Allergy (Verified 06/27/24 11:50) PFSH Medical History Bone marrow disorder Anemia Surgical History Hx of colonoscopy History of esophagogastroduodenoscopy (EGD) Hx of cholecystectomy Family History Father Diabetes Maternal Grandmother Breast cancer Family/Other Lymphoma Social History Household Members: Family Housing: Apartment Are you a primary manager managed care to a significant other at home: No Do you presently have visiting nurse or other home services: No Alcohol intake: current Alcohol intake frequency: holidays/special occasions only Alcohol type: beer Patient Tobacco Use Status: Never used Tobacco e-Cigarette/Vaping Use: Never Used Second Hand Smoke Exposure: No service: No Current occupational status: employed Current occupation: [employer] Cognitive needs: No Hearing needs: No Vision needs: No Female Reproductive History Menstrual Age of Menarche: 10 Office Procedures AMB Capsule Endoscopy Procedure Notes: Capsule Endoscopy: Date of Service:07/03/24 Indication: anemia Findings: patchy erythema consistent with gastritis noted in stomach. mild bulbar duodenitis patchy small bowel erythema in distal bowel small bowel with few erosions, cecum entered at 5 hr 23 Conclusion: gastritis duodenitis patchy small erythmea davon distal small bowel, Could be crohns, could consider CT enterogram vs trial of pentasa a small AVM was seen but not bleeding Capsule Endoscopy CPT Code: 85015 - Capsule Endoscopy Assessment & Plan Assessment & Plan (1) Anemia: Code(s): D64.9 - Anemia, unspecified Category: Medical Qualifiers: Anemia type: unspecified type Qualified Code(s): D64.9 - Anemia, unspecified Plan: as above Plan as above Coding Level of Care Code Procedure Only Diagnoses Anemia, unspecified type D64.9 Anemia type: unspecified type CPT Codes AMB Capsule Endoscopy - Capsule Endoscopy CPT Code: 68197 - Capsule Endoscopy ([id number])
== END 2024-07-03 08:02 | disposition home or self-care (01) ==
LOC: HO.HGI 07:45
PROVIDERS: PCP Physician Assistant; Visit Provider Internal Medicine Gastroenterology
DX: D64.9 Anemia, unspecified (principal); K29.70 Gastritis, unspecified, without bleeding; K29.80 Duodenitis without bleeding
CPT/HCPCS: 91110

== ENCOUNTER → 2024-07-03 07:44 | Outpatient (BNVA) | payer OTHER, SELFPAY | PROVIDERS: PCP Physician Assistant; Visit Provider Internal Medicine Gastroenterology | DX: D64.9 Anemia, unspecified (principal) | CPT/HCPCS: 91110 ==

== ENCOUNTER 2024-07-12 16:31 | Outpatient (REF) | payer OTHER, SELFPAY ==
--- OUTSIDE RECORDS SUMMARY | 2024-07-12 16:34 | XMS_ITS | Clinical Summary ---
Author Organization [facility] Address [address] [place] [phone] Phone Care Team Providers Care Internal Revenue Agent Name Role Phone Unavailable Primary Care Provider [...]
[2024-07-12 17:25] LABS: Monotest Negative (Negative)
[2024-07-12 17:27] LABS: Blood Urea Nitrogen 15 mg/dL (9-16); Estimated Glomerular Filt Rate > 60; Magnesium 1.8 mg/dL (1.6-2.6)
[2024-07-15 23:18] LABS: Antibody to SS-A Antigen <1.0 NEG AI (<1.0 NEG); Antibody to SS-B Antigen <1.0 NEG AI (<1.0 NEG)
[2024-07-16 20:35] LABS: Aldolase 3.9 U/L (<=8.1)
== END 2024-07-12 16:32 | disposition home or self-care (01) ==
LOC: HO.LAB 16:31
PROVIDERS: PCP Physician Assistant; Visit Provider Nurse Practitioner Family
DX: R10.11 Right upper quadrant pain (principal); R53.83 Other fatigue; R74.8 Abnormal levels of other serum enzymes
CPT/HCPCS: 36415; 82085; 82565; 83735; 84520; 86235; 86308

== ENCOUNTER 2024-07-18 07:52 | Outpatient (REF) | payer OTHER, SELFPAY ==
--- NOTE | ~2024-07-18 | CT_ITS ---
CLINICAL HISTORY: Q27.30 - Arteriovenous malformation, site unspecified CT angiography chest with contrast. 3D Postprocessing. Comparison: None Findings: The heart is normal size. RV/LV ratio is normal. The thoracic aorta is normal caliber. No acute pulmonary embolus. The visualized thyroid and mediastinum are unremarkable. The lungs are clear. Undefined low-attenuation soft tissue lesion is seen in the retroperitoneum surrounding the celiac axis of uncertain nature. The bones are intact. IMPRESSION: 1. Low-attenuation /Fatty material is seen in the retroperitoneum in the region of the gastrohepatic ligament and surrounding the celiac axis. Findings could represent a localized inflammatory process involving the retroperitoneal fat. Findings could represent localized panniculitis. Consider correlating with MRI. This document has been electronically signed by: Gilmar Back MD on 07/18/2024 11:22:51
--- NOTE | ~2024-07-18 | CT_ITS ---
CLINICAL HISTORY: Q27.30 - Arteriovenous malformation, site unspecified --- Additional Notes or Speci al Instructions: liver protocol CT chest and abdomen with contrast Comparison: None Findings: The heart is normal size. There is a moderate hiatal hernia. No consolidation or effusion. The aorta is unremarkable. There is no evidence of AVN. There is hepatosplenomegaly. No focal lesions are identified. The patient is status post cholecystectomy. 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 The bones are intact. The visualized GI tract is otherwise unremarkable. IMPRESSION: 1. There is a moderate hiatal hernia. 2. There is hepatosplenomegaly. No focal lesions are identified. 3. 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 This document has been electronically signed by: Gilmar Back MD on 07/18/2024 11:16:28
--- OUTSIDE RECORDS SUMMARY | 2024-07-18 07:58 | XMS_ITS | Clinical Summary ---
Author Organization [facility] Address [address] [place] [address] Phone Care Team Providers Care Safety And Occupational Health Manager Name Role Phone Unavailable Primary Care [...]
--- OUTSIDE RECORDS SUMMARY | 2024-07-18 07:58 | XMS_ITS | Encounter Summary ---
Author Organization [facility] Address [address] [place] [address] Phone Care Team Providers Care Color Maker Name Role Phone Emma Lizarraga MD Primary Care Provider [phone] Encounter Details Date Type Department Care Team (Late st Contact Info) Description 11/10/2016 Conversion Encounter [facility] [place] [address] [place] [address] Social History Tobacco Use Types Packs/Day Years [...] on filedocumented in this encounter Care Teams Color Maker Relationship Specialty Start Date End Date Emma Lizarraga MD [address] [place] [address] PCP - General 11/04/16 05/11/22 documented as of this encounter
[2024-07-18] MEDS: iohexoL 350 MG/ML 100 ML INFUS..BTL IV (09:06)
== END 2024-07-18 07:53 | disposition home or self-care (01) ==
LOC: HO.CT 07:52
PROVIDERS: PCP Physician Assistant; Visit Provider Nurse Practitioner Family
DX: Q27.30 Arteriovenous malformation, site unspecified (principal)
CPT/HCPCS: 71275; 74175; Q9967

== ENCOUNTER → 2024-07-18 07:53 | Outpatient (BNV) | payer OTHER, SELFPAY | PROVIDERS: PCP Physician Assistant; Visit Provider Radiology Diagnostic Radiology | DX: Q27.30 Arteriovenous malformation, site unspecified (principal) | CPT/HCPCS: 71275; 74175 ==

== ENCOUNTER 2024-08-02 13:28 | Outpatient (AMB) | payer OTHER, SELFPAY ==
[2024-08-02 13:30] VITALS: BP 142/80; PULSE 70; O2SAT 99; BMI 32.6
--- NOTE | 2024-08-02 13:30 | MHC.OFFVIS ---
Vital Signs 08/02/24 13:30 Height 5 ft 8 in Weight 214 lb 11.684 oz BMI 32.6 BP 142/80 H Blood Pressure Location Lt brachial Position Sitting Pulse 70 Pulse Source Pulse Oximeter Pulse Oximetry (%) 99 Oxygen Delivery Method Room Air Intake Visit Reasons: Rash/New Patient/ Urgent internal ref Intake Note: Patient presents for rash, she was internally referred by her PCP, Abdi Lester. She complains of rash, night sweats. Allergies No Known Allergies Allergy (Verified 08/02/24 13:34) Medication List - Last Reconciled 08/02/24 by Myriam Pitts MD chlorhexidine gluconate 4% (Hibiclens) topical cholecalciferol (vitamin D3) 50 mcg PO DAILY cyanocobalamin (vitamin B-12) 1,000 mcg sublingual DAILY docusate sodium (Colace) 100 mg PO BID 30 days esomeprazole magnesium (Nexium) 40 mg PO DAILY ferrous sulfate 325 mg PO BID 90 days folic acid 1 mg PO DAILY lorazepam 0.5 mg PO BID PRN 5 days magnesium oxide 400 mg PO DAILY ondansetron 4 mg PO Q6H sennosides (Natural Senna Laxative) 17.2 mg (2 x 8.6 mg) PO BEDTIME sertraline 100 mg PO DAILY 30 days sucralfate 10 mL PO BEDTIME triamcinolone acetonide 0.1% 1 appl topical DAILY 30 days HPI Comments Details: Patient is a 34 year old female with hidradenitis suppurativa, liver fibrosis secondary to ?, generalized anxiety disorder, hypertension, GERD here today for evaluation of malar rash Patient's history starts a year ago. She started feeling unwell and had routine blood work and was found to have anemia and elevated liver enzymes She subsequently had hematology referral and bone marrow biopsies which did not show any myeloproliferative disorders. She received iron infusions and had slow improvement in her hemoglobin. The underlying cause was never found. She subsequently was evaluated for her persistently elevated liver enzymes and was found to have mild liver cirrhosis. It was unclear what this was secondary to whether it was a nonalcoholic fatty liver disease or alcohol. At that time patient states that she was drinking alcohol more heavily to cope with her pain. She reports pain involving her knees, her lower legs, her upper arms and shoulders. She denies prolonged morning stiffness involving the hands and wrists. No swelling to the hands. She denies Raynaud's but has been noticing a blue tinge to her feet and extreme feelings of cold to her fingers. She also noted a rash on her abdomen as well as her lower extremities. She followed with derm but was diagnosed with shingles and no further workup was done. She was instructed to follow up with Rheumatology. She reports unexplained weight loss, night sweats. No overt fevers. Has never been . No clots in the lungs She saw a provider who noted the hemorrhagic telangiectasias to her lips and was concerned that she may have hereditary here or hemorrhagic telangiectasias. She was sent to be evaluated for aneurysms and imaging so far has been unremarkable. [facility] Medical History Bone marrow disorder Anemia Surgical History Hx of colonoscopy History of esophagogastroduodenoscopy (EGD) Hx of cholecystectomy Family History Father Diabetes Maternal Grandmother Breast cancer Family/Other Lymphoma Social History Household Members: Family Housing: Apartment Are you a primary team primary care physician to a significant other at home: No Do you presently have visiting nurse or other home services: No Alcohol intake: current Alcohol intake frequency: holidays/special occasions only Alcohol type: beer Patient Tobacco Use Status: Never used Tobacco e-Cigarette/Vaping Use: Never Used Second Hand Smoke Exposure: No service: No Current occupational status: employed Current occupation: [employer] Cognitive needs: No Hearing needs: No Vision needs: No Female Reproductive History Menstrual Age of Menarche: 10 Review of Systems Const Details: Review of Systems Constitutional: Denies fever, chills ENT: Denies vision changes, eye pain or eye redness, dental caries, dry mouth GI: Denies nausea, vomiting, diarrhea, abdominal pain, change in BM Pulm: Denies RAI, hemoptysis, wheezing. Has some SOB Cards: Denies chest pain, palpitations Skin: Denies Raynaud's, rash, nail changes, photosensitivity, HI LIFT OPERATOR: Denies headaches, weakness, paresthesias, recurrent falls MSK: as per HPI All other systems reviewed and are unremarkable except noted above Physical Exam Vital Signs: Last Vital Signs Pulse 70 08/02/24 13:30 BP 142/80 H 08/02/24 13:30 Pulse Ox 99 08/02/24 13:30 Oxygen Delivery Method Room Air 08/02/24 13:30 BMI result Body Mass Index 32.6 Vital signs reviewed Physical Examination CONSTITUITIONAL Patient alert and cooperative. Well appearing and in no apparent painful distress HEENT Conjunctiva and sclera clear. ?Pupils equal round and reactive to light. ?No lymphadenopathy. ? CHEST/RESPIRATORY SYSTEM Normal respiratory effort and able to speak in complete sentences. ?Clear to auscultation bilaterally. ?No crackles, rales, rhonchi, wheezes heard. CARDIAC SYSTEM Regular rate and rhythm. ?S1 and S2 heard no murmurs. ?Radial pulses intact bilaterally MSK Hands: ?Able to make a fist. No synovitis noted to the MCPs, PIPs or DIPs. ?No tenderness to palpation of these joints. No deformities noted. ? Wrists: ?Full range of motion at the wrists without pain. ?No tenderness to palpation or synovitis noted to the wrists. Elbows: Full range of motion without pain. No tenderness, weakness, swelling, increased warmth or erythema. Shoulders: Full range of active range of motion without pain. No tenderness, weakness, swelling, increased warmth or erythema. Knees: ?Full range of motion. ?No tenderness, swelling, increased warmth or erythema.?No effusion or crepitations Ankles: Full range of motion. ?No tenderness, swelling, increased warmth or erythema.? Feet: ?Negative squeeze test. ?No tenderness to palpation or swelling of the MTPs. Tender points:?No tenderness to palpation of the bilateral trapezius, supraspinatus, greater trochanters, anterior costochondral junctions, bilateral gluteal areas, bilateral suboccipital muscle insertions SKIN Spider telangiectasias noted to upper chest and face. Hemorrhagic telangiectasias noted to her lips Livedo reticularis Normal nail fold capillary dermoscopy Blue hue to the feet Results Reviewed Results Reviewed: Laboratory Tests 06/18/24 06/27/24 07/12/24 14:01 12:48 16:40 WBC 7.8 RBC 4.74 Hgb 13.9 Hct 41.0 Plt Count 172 ESR 7 Sodium 140 Potassium 4.0 Chloride 108 Carbon Dioxide 26 BUN 15 Creatinine 0.83 AST 32 H ALT 26 Alkaline Phosphatase 62 Aldolase 3.9 Immunology labs 06/18/24 07/12/24 14:01 16:40 Screen NEGATIVE SS-A/Ro Antibody <1.0 NEG <1.0 NEG SS-B/La Antibody <1.0 NEG <1.0 NEG Anti-ds DNA (Crithidia) Negative CTA 06/2024 Findings: The heart is normal size. RV/LV ratio is normal. The thoracic aorta is normal caliber. No acute pulmonary embolus. The visualized thyroid and mediastinum are unremarkable. The lungs are clear. Undefined low-attenuation soft tissue lesion is seen in the retroperitoneum surrounding the celiac axis of uncertain nature. The bones are intact. IMPRESSION: 1. Low-attenuation /Fatty material is seen in the retroperitoneum in the region of the gastrohepatic ligament and surrounding the celiac axis. Findings could represent a localized inflammatory process involving the retroperitoneal fat. Findings could represent localized panniculitis. Consider correlating with MRI. Abdomen CTA 06/2024 Findings: The heart is normal size. There is a moderate hiatal hernia. No consolidation or effusion. The aorta is unremarkable. There is no evidence of AVN. There is hepatosplenomegaly. No focal lesions are identified. The patient is status post cholecystectomy. 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 The bones are intact. The visualized GI tract is otherwise unremarkable. IMPRESSION: 1. There is a moderate hiatal hernia. 2. There is hepatosplenomegaly. No focal lesions are identified. 3. 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 Assessment & Plan Assessment & Plan (1) Skin rash: Code(s): R21 - Rash and other nonspecific skin eruption Category: Medical Plan: #Rash Patient is a 34-year-old female who presents for evaluation of multiple complaints. At this time she does not meet criteria for any autoimmune connective tissue disease such as lupus, scleroderma or Sjogren's. Despite this her exam is concerning for potential underlying APLS given her livedo reticularis. We will check APS labs. Her CTA of the chest did show a inflammatory collection around the celiac plexus in the retroperitoneum. This could be IgG4 related disease. We will need to pursue an MRI for better characterization of this. We will order full autoimmune workup and re-evaluate in 2 weeks Plan I spent 45 minutes reviewing the record and labs, taking a history, examining the patient, discussing the treatment plan, ordering diagnostic work up and documenting in the medical record Orders: Orders Complement C3 Today D89.84 - IgG4-related disease Complement C4 Today D89.84 - IgG4-related disease Comprehensive Met. Panel Today D89.84 - IgG4-related disease C Reactive Protein Today D89.84 - IgG4-related disease Erythrocyte Sedimentation Rate Today D89.84 - IgG4-related disease Immunoglobulins,IgG IgA IgM Today D89.84 - IgG4-related disease Scleroderma 70 Antibody Today D89.84 - IgG4-related disease Sjogren's Antibodies Today D89.84 - IgG4-related disease Protein Creatinine Ratio, Ur Today D89.84 - IgG4-related disease Protein Electrophoresis, Serum Today D89.84 - IgG4-related disease Immunofixation Pnl, Serum Today D89.84 - IgG4-related disease Beta-2 Glycoprotein Antibody Today D68.61 - Antiphospholipid syndrome Cardiolipin Antibodies Today D68.61 - Antiphospholipid syndrome Reflex Titer and Pattern Today D89.84 - IgG4-related disease ANCA Vasculitides Today D89.84 - IgG4-related disease Anti-Centromere B Antibodies Today D89.84 - IgG4-related disease Anti DNA DS Antibody Today D89.84 - IgG4-related disease Sm Sm/MACHINE WOODWORKING SANDER Antibodies Today D89.84 - IgG4-related disease Angiotensin Converting Enzyme Today D89.84 - IgG4-related disease Creatine Kinase Total Today D89.84 - IgG4-related disease Immunoglobulin G Subclasses Today D89.84 - IgG4-related disease Lupus Anticoagulant Panel Today D68.61 - Antiphospholipid syndrome Referrals Rheumatology Referral D89.84 - IgG4-related disease, R21 - Rash and other nonspecific skin eruption Coding Level of Care Code New Pt Level 4 (59351) Complex EM visit Add On G2211 Diagnoses Skin rash R21
--- OUTSIDE RECORDS SUMMARY | 2024-08-02 13:32 | XMS_ITS | Encounter Summary ---
Author Organization [facility] Address [address] [place] [address] Phone Care Team Providers Care Gas Usage Meter Clerk Name Role Phone Emma Lizarraga MD Primary Care Provider [phone] Encounter Details Date Type Department Care Team (Late st Contact Info) Description 11/10/2016 Conversion Encounter [facility] [place] [address] [place] [address] Social History Tobacco Use Types Packs/Day Years [...] on filedocumented in this encounter Care Teams Gas Usage Meter Clerk Relationship Specialty Start Date End Date Emma Lizarraga MD [address] [place] [address] PCP - General 11/04/16 05/11/22 documented as of this encounter
--- OUTSIDE RECORDS SUMMARY | 2024-08-02 13:32 | XMS_ITS | Clinical Summary ---
Author Organization [facility] Address [address] [place] [address] Phone Care Team Providers Care Turbo Operator Name Role Phone Unavailable Primary Care [...]
== END 2024-08-02 14:20 | disposition home or self-care (01) ==
LOC: HO.RHE 13:29
PROVIDERS: PCP Physician Assistant; Visit Provider Student in an Organized Health Care Education/Training Program
DX: R21 Rash and other nonspecific skin eruption (principal)
CPT/HCPCS: 99204; G2211

== ENCOUNTER 2024-08-02 13:28 | Outpatient (REF) | payer OTHER, SELFPAY ==
--- OUTSIDE RECORDS SUMMARY | 2024-08-02 14:27 | XMS_ITS | Encounter Summary ---
Author Organization [facility] Address [address] [place] [address] Phone Care Team Providers Care Land Examiner Name Role Phone Emma Lizarraga MD Primary Care Provider [phone] Encounter Details Date Type Department Care Team (Late st Contact Info) Description 11/10/2016 Conversion Encounter [facility] [place] [address] [place] [address] Social History Tobacco Use Types Packs/Day Years [...] on filedocumented in this encounter Care Teams Land Examiner Relationship Specialty Start Date End Date Emma Lizarraga MD [address] [place] [address] PCP - General 11/04/16 05/11/22 documented as of this encounter
--- OUTSIDE RECORDS SUMMARY | 2024-08-02 14:27 | XMS_ITS | Clinical Summary ---
Author Organization [facility] Address [address] [place] [id number] Phone Care Team Providers Care Christmas Tree Contractor Name Role Phone Unavailable Primary Care Provider [...]
[2024-08-02 14:44] LABS: MANUAL DIFF FLAG NO
[2024-08-02 15:04] LABS: Basophils Percent Auto 0.5 % (0-2); Eosinophils Absolute Auto 0.3 X10*3/uL (0.0-0.4); Eosinophils Percent Auto 3.9 % (0-4); Hematocrit 39.4 % (37.0-47.0); Hemoglobin 13.3 g/dl (12.0-16.0); Imm Gran Abs Auto 0.02 X10*3/uL (0.00-0.03); Imm Gran Pct Auto 0.3 % (0.0-0.4); Lymphocytes Absolute Auto 3.4 X10*3/uL (1.2-4.9); Lymphocytes Percent Auto 43.9 % (20-40); Mean Corpuscular HGB Conc 33.8 g/dl (31.0-35.0); Mean Corpuscular Hemoglobin 29.6 pg (27.0-33.0); Mean Corpuscular Volume 87.8 fL (80.0-98.0); Mean Platelet Volume 10.1 fL (9.4-12.3); Monocytes Absolute Auto 0.4 X10*3/uL (0.1-1.2); Monocytes Percent Auto 5.1 % (2-11); Neutrophils Absolute Auto 3.6 x10*3/uL (2.0-8.3); Neutrophils Percent Auto 46.3 % (45-73); Platelet Count 145 X10*3/uL (160-400); Red Blood Count 4.49 X10*6/uL (4.20-5.50); Red Cell Distribution Width 13.7 % (11.0-16.0); White Blood Count 7.7 X10*3/uL (4.8-10.8)
[2024-08-02 15:20] LABS: Appearance Urine Clear; Color Urine Yellow; Glucose Urine UA Negative (Negative); Leukocyte Esterase Urine Negative (Negative); Nitrite Urine Negative (Negative); Urine Blood Negative (Negative); Urine Ketones Negative (Negative); Urine Protein Negative (Neg-Trace)
[2024-08-02 15:39] LABS: Alanine Aminotransferase 27 U/L (0-31); Albumin Level 4.8 g/dL (3.5-5.0); Alkaline Phosphatase 65 U/L (39-117); Anion Gap 11 (12-20); Aspartate Amino Transferase 30 U/L (5-31); Bilirubin Total 1.1 mg/dL (0.0-1.0); Blood Urea Nitrogen 20 mg/dL (9-16); C Reactive Protein 0.13 mg/dL (< or = 0.50); Carbon Dioxide 26 mmol/L (22-29); Chloride 101 mmol/L (96-108); Estimated Glomerular Filt Rate > 60; Glucose Random 85 mg/dL (60-115); Potassium 4.2 mmol/L (3.3-5.1); Sodium 134 mmol/L (135-145); Total Protein 8.3 g/dL (6.5-8.0)
[2024-08-02 15:40] LABS: Creatinine Urine 81.67 mg/dL; Total Protein Urine Random < 7 mg/dL (<12)
[2024-08-02 15:44] LABS: Alanine Aminotransferase 28 U/L (0-31); Albumin Level 4.7 g/dL (3.5-5.0); Alkaline Phosphatase 67 U/L (39-117); Anion Gap 11 (12-20); Aspartate Amino Transferase 30 U/L (5-31); Bilirubin Total 1.1 mg/dL (0.0-1.0); Blood Urea Nitrogen 20 mg/dL (9-16); Calcium 9.9 mg/dL (8.4-10.2); Carbon Dioxide 26 mmol/L (22-29); Chloride 101 mmol/L (96-108); Estimated Glomerular Filt Rate > 60; Glucose Random 85 mg/dL (60-115); Potassium 4.2 mmol/L (3.3-5.1); Sodium 134 mmol/L (135-145); Total Protein 8.2 g/dL (6.5-8.0)
[2024-08-02 15:45] LABS: Erythrocyte Sedimentation Rate 11 MM/HR (0-20)
[2024-08-02 16:01] LABS: Ferritin 170 ng/mL (10-122)
[2024-08-05 10:43] LABS: Complement C3 154 mg/dL (83-193)
[2024-08-05 11:14] LABS: Anti Nuclear Antibody Screen NEGATIVE (NEGATIVE)
[2024-08-06 12:43] LABS: Immunoglobulin G Subclass 1 694 mg/dL (382-929); Immunoglobulin G Subclass 2 435 mg/dL (241-700); Immunoglobulin G Subclass 3 38 mg/dL (22-178); Immunoglobulin G Subclass 4 12.3 mg/dL (4-86); Immunoglobulin G Total 1284 mg/dL (600-1640)
[2024-08-06 18:44] LABS: Prot Elec - Alpha1 0.3 g/dL (0.2-0.3); Prot Elec - Alpha2 0.7 g/dL (0.5-0.9); Prot Elec - Beta 1 0.5 g/dL (0.4-0.6); Prot Elec - Beta 2 0.5 g/dL (0.2-0.5); Prot Elec - Gamma 1.5 g/dL (0.8-1.7); Prot Elec - Total Protein 8.4 g/dL (6.1-8.1)
[2024-08-07 06:52] LABS: IgA 453 mg/dL (47-310); IgG 1354 mg/dL (600-1640); IgM 235 mg/dL (50-300)
[2024-08-07 11:43] LABS: Angiotensin Converting Enzyme 66 U/L (9-67)
[2024-08-07 21:08] LABS: Anti DNA DS Antibody <1 IU/mL; Antibody to SS-A Antigen <1.0 NEG AI (<1.0 NEG); Antibody to SS-B Antigen <1.0 NEG AI (<1.0 NEG); Myeloperoxidase Antibody <1.0 AI; Proteinase 3 PR3 Antibodies <1.0 AI; SM/Ribonucleoprotein Ab <1.0 NEG AI (<1.0 NEG); Scleroderma 70 Antibody <1.0 NEG AI (<1.0 NEG); Smith Protein <1.0 NEG AI (<1.0 NEG)
[2024-08-07 22:23] LABS: Anti-Centromere B Antibodies <1.0 NEG AI (<1.0 NEG)
== END 2024-08-02 13:29 | disposition home or self-care (01) ==
LOC: HO.LAB 13:28
PROVIDERS: Internal Medicine Medical Oncology; PCP Physician Assistant; Visit Provider Student in an Organized Health Care Education/Training Program
DX: D89.84 IgG4-related disease (principal); R30.0 Dysuria; R41.0 Disorientation, unspecified; D64.9 Anemia, unspecified; R21 Rash and other nonspecific skin eruption
CPT/HCPCS: 36415; 80053; 81003; 82164; 82550; 82570; 82728; 82784; 84156; 84165; 85025; 85652; 86021; 86038; 86140; 86160; 86225; 86235; 86334; 99202

== ENCOUNTER 2024-08-06 14:42 | Outpatient (REF) | payer OTHER, SELFPAY ==
[2024-08-06 14:56] LABS: MANUAL DIFF FLAG NO
[2024-08-06 15:02] LABS: Basophils Absolute Auto 0.1 X10*3/uL (0.0-0.2); Basophils Percent Auto 0.7 % (0-2); Eosinophils Absolute Auto 0.4 X10*3/uL (0.0-0.4); Eosinophils Percent Auto 4.7 % (0-4); Hematocrit 38.7 % (37.0-47.0); Hemoglobin 13.2 g/dl (12.0-16.0); Imm Gran Abs Auto 0.02 X10*3/uL (0.00-0.03); Imm Gran Pct Auto 0.3 % (0.0-0.4); Lymphocytes Absolute Auto 3.2 X10*3/uL (1.2-4.9); Lymphocytes Percent Auto 43.1 % (20-40); Mean Corpuscular HGB Conc 34.1 g/dl (31.0-35.0); Mean Corpuscular Hemoglobin 29.7 pg (27.0-33.0); Mean Corpuscular Volume 87.2 fL (80.0-98.0); Mean Platelet Volume 10.2 fL (9.4-12.3); Monocytes Absolute Auto 0.5 X10*3/uL (0.1-1.2); Monocytes Percent Auto 6.1 % (2-11); Neutrophils Absolute Auto 3.4 x10*3/uL (2.0-8.3); Neutrophils Percent Auto 45.1 % (45-73); Platelet Count 146 X10*3/uL (160-400); Red Blood Count 4.44 X10*6/uL (4.20-5.50); Red Cell Distribution Width 13.6 % (11.0-16.0); White Blood Count 7.4 X10*3/uL (4.8-10.8)
--- OUTSIDE RECORDS SUMMARY | 2024-08-06 15:50 | XMS_ITS | Clinical Summary ---
Author Organization [facility] Address [address] [place] [address] Phone Care Team Providers Care Community Relations Coordinator Name Role Phone Unavailable Primary Care [...]
--- OUTSIDE RECORDS SUMMARY | 2024-08-06 15:50 | XMS_ITS | Encounter Summary ---
Author Organization [facility] Address [address] [place] [address] Phone Care Team Providers Care Vocational Nursing Instructor Name Role Phone Emma Lizarraga MD Primary Care Provider [phone] Encounter Details Date Type Department Care Team (Late st Contact Info) Description 11/10/2016 Conversion Encounter [facility] [place] [address] [place] [address] Social History Tobacco Use Types Packs/Day Years [...] on filedocumented in this encounter Care Teams Vocational Nursing Instructor Relationship Specialty Start Date End Date Emma Lizarraga MD [address] [place] [address] PCP - General 11/04/16 05/11/22 documented as of this encounter
[2024-08-06 16:09] LABS: Alanine Aminotransferase 26 U/L (0-31); Albumin Level 4.7 g/dL (3.5-5.0); Anion Gap 12 (12-20); Aspartate Amino Transferase 31 U/L (5-31); Bilirubin Total 1.1 mg/dL (0.0-1.0); Blood Urea Nitrogen 20 mg/dL (9-16); Carbon Dioxide 25 mmol/L (22-29); Chloride 106 mmol/L (96-108); Estimated Glomerular Filt Rate > 60; Glucose Random 82 mg/dL (60-115); Sodium 139 mmol/L (135-145); Total Protein 8.1 g/dL (6.5-8.0)
[2024-08-06 16:18] LABS: Ferritin 162 ng/mL (10-122)
[2024-08-06 16:40] LABS: Alkaline Phosphatase 70 U/L (39-117)
[2024-08-08 16:09] LABS: Cardiolipin IgG Ab <2.0 GPL-U/mL; Cardiolipin IgM Ab <2.0 MPL-U/mL
[2024-08-09 04:43] LABS: PTT (LAC) Screen 39 sec (<=40)
[2024-08-10 04:29] LABS: Beta-2 Glycoprotein IgA <2.0 U/mL (<20.0); Beta-2 Glycoprotein IgG <2.0 U/mL (<20.0); Beta-2 Glycoprotein IgM <2.0 U/mL (<20.0)
== END 2024-08-06 14:43 | disposition home or self-care (01) ==
LOC: HO.LAB 14:42
PROVIDERS: Internal Medicine Medical Oncology; PCP Physician Assistant; Visit Provider Student in an Organized Health Care Education/Training Program
DX: D68.61 Antiphospholipid syndrome (principal); D64.9 Anemia, unspecified
CPT/HCPCS: 36415; 80053; 82728; 85025; 85597; 85598; 85613; 85730; 86146; 86147

== ENCOUNTER 2024-08-07 13:54 | Outpatient (REF) | payer OTHER, SELFPAY ==
--- NOTE | ~2024-08-07 | CT_ITS ---
CLINICAL HISTORY: Q27.30 - Arteriovenous malformation, site unspecified CT angiography head with contrast. 3D Postprocessing. Comparison: MR/SR - MR HEAD/BRAIN WO CON - 06/28/24 10:11 EDT Findings: Intracranial arteries are patent. No aneurysm, dissection, hemodynamically significant stenoses, or occlusion. No abnormal intracranial enhancement. No intra-axial mass, midline shift, hydrocephalus, or acute hemorrhage. No skull fracture. IMPRESSION: Patent head CTA. This document has been electronically signed by: Denise Baker MD on 08/07/2024 17:21:34
--- OUTSIDE RECORDS SUMMARY | 2024-08-07 13:56 | XMS_ITS | Encounter Summary ---
Author Organization [facility] Address [address] [place] [address] Phone Care Team Providers Care Hand Cloth Examiner Name Role Phone Emma Lizarraga MD Primary Care Provider [phone] Encounter Details Date Type Department Care Team (Late st Contact Info) Description 11/10/2016 Conversion Encounter [facility] - [place] [address] [place] [address] Social History Tobacco Use Types Packs/Day Years [...] on filedocumented in this encounter Care Teams Hand Cloth Examiner Relationship Specialty Start Date End Date Emma Lizarraga MD [address] [place] [address] PCP - General 11/04/16 05/11/22 documented as of this encounter
--- OUTSIDE RECORDS SUMMARY | 2024-08-07 13:56 | XMS_ITS | Clinical Summary ---
Author Organization [facility] Address [address] [place] [address] Phone Care Team Providers Care Manager Body Name Role Phone Unavailable Primary Care Provider [...]
[2024-08-07] MEDS: iohexoL 350 MG/ML 100 ML INFUS..BTL IV (15:10)
== END 2024-08-07 13:55 | disposition home or self-care (01) ==
LOC: HO.CT 13:54
PROVIDERS: PCP Physician Assistant; Visit Provider Nurse Practitioner Family
DX: Q27.30 Arteriovenous malformation, site unspecified (principal)
CPT/HCPCS: 70496; Q9967

== ENCOUNTER → 2024-08-07 13:56 | Outpatient (BNV) | payer OTHER, SELFPAY | PROVIDERS: PCP Physician Assistant; Visit Provider Radiology Diagnostic Radiology | DX: Q27.30 Arteriovenous malformation, site unspecified (principal) | CPT/HCPCS: 70496; 70498 ==

== ENCOUNTER → 2024-08-11 13:37 | Outpatient (BNV) | payer OTHER, SELFPAY | PROVIDERS: PCP Physician Assistant; Visit Provider Radiology Diagnostic Radiology | DX: R16.2 Hepatomegaly with splenomegaly, not elsewhere classified (principal) | CPT/HCPCS: 74183 ==

== ENCOUNTER 2024-08-11 13:38 | Outpatient (REF) | payer OTHER, SELFPAY ==
--- NOTE | ~2024-08-11 | MR_ITS ---
EXAMINATION: MR ABDOMEN WITHOUT THEN WITH IV CONTRAST HISTORY: R19.00 - Intra-abdominal and pelvic swelling, mass and lump, unspecified... COMPARISON: Correlation is made with a CT of the abdomen dated 07/18/2024. TECHNIQUE: Axial in and out of phase T1-weighted gradient echo, axial diffusion weighted, and axial and coronal HASTE T2 with fat saturation images were obtained through the abdomen. Subsequently, fat suppressed axial and coronal T1-weighted images were obtained after the intravenous administration of mL Gadavist. FINDINGS: There is a large focus of magnetic susceptibility artifact related to a metallic clip in the stomach as noted on CT. Liver: The liver is enlarged and demonstrates heterogeneous T2 signal intensity. There is no loss of signal intensity in the liver on opposed phase imaging to suggest steatosis. There is no enhancing liver mass. The hepatic and portal veins are patent. There is no intra- or extrahepatic biliary dilatation. Gallbladder: The patient is status post cholecystectomy. Spleen: The spleen is enlarged. No focal splenic lesion is identified. Pancreas: The pancreatic body and tail are obscured by magnetic susceptibility artifact from the gastric clip. The pancreatic head is unremarkable in appearance. Adrenals: The adrenal glands are unremarkable. Kidneys: The kidneys are unremarkable. There is no hydronephrosis. Lymph nodes: There is no retroperitoneal lymphadenopathy in the upper abdomen. There is ill-defined soft tissue surrounding the celiac axis which is T2 hyperintense and T1 hyperintense. This demonstrates delayed enhancement at 5 minutes and corresponds to the low-density material seen on CT. Fluid: There is no ascites in the upper abdomen. Visualized bowel: The visualized bowels loops are unremarkable in appearance. Visualized bones: The visualized bones demonstrate normal marrow signal intensity. MR/MR abdomen wo/w con IMPRESSION: 1. Limited examination due to magnetic susceptibility artifact from the metallic clip in the stomach. 2. Hepatosplenomegaly. 3. Ill-defined soft tissue surrounding the celiac axis which demonstrates delayed enhancement. Imaging findings are nonspecific, but could represent IgG4 related disease. Electronically signed by: Amadeo Carrillo MD 08/12/2024 08:53 AM EDT
--- OUTSIDE RECORDS SUMMARY | 2024-08-11 13:41 | XMS_ITS | Clinical Summary ---
Author Organization [facility] Address [address] [place] [address] Phone Care Team Providers Care Resident Care Coordinator Name Role Phone Unavailable Primary Care [...]
[2024-08-11] MEDS: gadobutroL 10 ML VIAL IVPUSH (14:24)
== END 2024-08-11 13:39 | disposition home or self-care (01) ==
LOC: HO.MRI 13:38
PROVIDERS: PCP Physician Assistant; Visit Provider Student in an Organized Health Care Education/Training Program
DX: R19.00 Intra-abdominal and pelvic swelling, mass and lump, unspecified site (principal)
CPT/HCPCS: 74183; A9585

== ENCOUNTER 2024-08-13 08:54 | Outpatient (AMB) | payer OTHER, SELFPAY ==
--- NOTE | 2024-08-13 08:58 | MHC.OFFVIS ---
Vital Signs 08/13/24 09:08 Height 5 ft 8 in Weight 214 lb BMI 32.5 BP 144/76 H Blood Pressure Location Rt brachial Position Sitting Pulse 58 Pulse Source Pulse Oximeter Pulse Oximetry (%) 100 Oxygen Delivery Method Room Air Intake Visit Reasons: 4 mo f/u Intake Note: ESTABLISHED PATIENT for mgmt of abd pain + abn labs. ABD MRI 08/11, Head CT 08/07, CTA ABD 07/18, 07/12 labs. CC; Pt denies any new sx or concerns at this time. Pt is hoping to discuss results of her most recent diagnostics. Pt also has appt scheduled today for allergy and immunology. Fountain Dispenser Required: No Accompanied by: Mother Allergies No Known Allergies Allergy (Verified 08/13/24 09:07) HPI HPI 4 mo f/u: Details: LAST VISIT: Constipation Liver fibrosis GERD (gastroesophageal reflux disease) Anemia Total bilirubin, elevated Skin rash Plan Patient will continue follow-up with Oncology at [facility] as well as Dr. Guerra as needed. Continue taking iron as ordered. Will do CT to rule out AVM in her liver, lungs, brain. Disorder is driven by patient symptoms like feeling more foggy, increased shortness of breath and abdominal pain. We will in addition Rule out lupus, Sjogren's. Will send patient for capsule endoscopy. Will hold off on doing biopsy of the liver due to possible bleed we will re-evaluate the CT 1st. We will recheck PT and INR before sending patient. Continue current low salt, low fat, low carb diet. Continue protein. So far we rule out multiple autoimmune disorders when it comes to her liver. She does have a hepatomegaly and splenomegaly on ultrasound. We will repeat ultrasound again in 5-6 months to re-evaluate. Currently elastography has improved. Liver fibrosis panel also better. Continue avoiding alcohol. Patient has appointment already with and will try to keep it. We will call patient with the results. Both patient and mom are agreeable to plan of care and verbalized understanding of instructions. They were given the opportunity to ask questions and all questions answered. ? Thank you for allowing me to participate in her care Orders Orders Capsule Endoscopy -GI Use Only Today CT angio abdomen Today Q27.30 Reflex Titer and Pattern Today R74.8 Liver Panel Today R74.01 Erythrocyte Sedimentation Rate Today R79.89 Creatinine Today R10.11 Histone Antibody Today K74.00 DNA Double Stranded-Crithidia Today R74.8 Sjogren's Antibodies Today K74.00 CT angio head Today Q27.30 Prothrombin Time INR Today R74.8 IRON PROFILE Today D64.9 Blood Urea Nitrogen Today R10.11 CT angio chest PE protocol Today Q27.30 Medications New sennosides (Natural Senna Laxative) 17.2 mg (2 x 8.6 mg) PO BEDTIME 180 tabs 3RF constipation K59.00 TODAY'S VISIT: Patient is here today for follow-up. Patient had CT scan of the chest, head, abdomen with no acute findings or abnormal finding except for 1. Low-attenuation /Fatty material is seen in the retroperitoneum in the region of the gastrohepatic ligament and surrounding the celiac axis. Findings could represent a localized inflammatory process involving the retroperitoneal fat. Findings could represent localized panniculitis. MRI of abdomen done : Ill-defined soft tissue surrounding the celiac axis which demonstrates delayed enhancement. Imaging findings are nonspecific, but could represent IgG4 related disease. All her lab work was discussed with her and her mom. Patient has appointment this afternoon with nuclear physics teacher and she continues to see cannon fire direction specialist. Patient reports that she continues to feel tired. Reports night sweats frequently. Still complains of epigastric pain occasionally depending on what she eats. Currently patient is taking Nexium in the morning and sucralfate in bedtime. For most part her symptoms are suppressed. Patient reports that she is moving her bowels daily, however she does not feel like she empties well. Currently patient is taking Senokot. Patient states that she drinks plenty water. Patient has been of any from alcohol. Reports that her job is too stressful and she is trying to find something different. 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 Patient's cannon fire direction specialist work her up for any a immune disorders and it came back negative. Her IgA total is elevated, however however patient does have NAFLD last fibrosis panel staged it at F3. [facility] Medical History (Updated 08/13/24 @ 20:05 by Elyssa Phan [facility]) NAFL (nonalcoholic fatty liver) Bone marrow disorder Anemia Surgical History Hx of colonoscopy History of esophagogastroduodenoscopy (EGD) Hx of cholecystectomy Family History Father Diabetes Maternal Grandmother Breast cancer Family/Other Lymphoma Social History Household Members: Family Housing: Apartment Are you a primary daytime caregiver to a significant other at home: No Do you presently have visiting nurse or other home services: No Alcohol intake: current Alcohol intake frequency: holidays/special occasions only Alcohol type: beer Patient Tobacco Use Status: Never used Tobacco e-Cigarette/Vaping Use: Never Used Second Hand Smoke Exposure: No service: No Current occupational status: employed Current occupation: [email or web address] Cognitive needs: No Hearing needs: No Vision needs: No Female Reproductive History Menstrual Age of Menarche: 10 Review of Systems Const Reports fatigue, Denies weight gain, Denies weight loss and Reports other (Feeling foggy) ENT Reports no additional complaints, Denies dysphagia and Denies odynophagia Card Reports no additional complaints and Reports dyspnea Resp Reports no additional complaints and Reports dyspnea GI Denies abdominal pain, Denies belching, Denies melena, Reports bloating, Denies change in bowel habits, Reports constipation, Denies dysphagia, Denies excessive flatus, Denies dyspepsia, Reports heartburn (Occasional), Denies diarrhea, Denies loose stools, Denies nausea, Denies odynophagia and Denies vomiting Reports no additional complaints Musc Reports no additional complaints Skin/Breast Details: Reports on and off rash Neuro Reports no additional complaints Psych Reports no additional complaints Endo Reports no additional complaints and Reports fatigue Physical Exam Vital Signs: Last Vital Signs Pulse 58 08/13/24 09:08 BP 144/76 H 08/13/24 09:08 Pulse Ox 100 08/13/24 09:08 Oxygen Delivery Method Room Air 08/13/24 09:08 BMI result Body Mass Index 32.5 Const General: healthy appearing, no acute distress and well developed Nutritional Appearance: well nourished Orientation/consciousness: patient oriented x3 Resp Effort & Inspection: normal respiratory effort, able to speak in complete sentences, no tracheal deviation and symmetric chest movement Auscultation: clear to auscultation bilaterally Cardio Rate: regular rate GI Inspection: Yes normal to inspection and No distended Palpation (GI): Soft to palpation, not firm, nontender and No hepatosplenomegaly present Auscultation: normal bowel sounds General: Yes no CVA tenderness Back/Spine/Pelvis Back: no CVA tenderness Skin Other: Red rash on face and chest General skin exam: elasticity normal, turgor normal and dry skin Neuro General: patient oriented x3 Psych Appearance: grossly normal Mental Status: mental status grossly normal Results Reviewed Results Reviewed: MRI OF ABDOMEN AND PELVIS FINDINGS: There is a large focus of magnetic susceptibility artifact related to a metallic clip in the stomach as noted on CT. Liver: The liver is enlarged and demonstrates heterogeneous T2 signal intensity. There is no loss of signal intensity in the liver on opposed phase imaging to suggest steatosis. There is no enhancing liver mass. The hepatic and portal veins are patent. There is no intra- or extrahepatic biliary dilatation. Gallbladder: The patient is status post cholecystectomy. Spleen: The spleen is enlarged. No focal splenic lesion is identified. Pancreas: The pancreatic body and tail are obscured by magnetic susceptibility artifact from the gastric clip. The pancreatic head is unremarkable in appearance. Adrenals: The adrenal glands are unremarkable. Kidneys: The kidneys are unremarkable. There is no hydronephrosis. Lymph nodes: There is no retroperitoneal lymphadenopathy in the upper abdomen. There is ill-defined soft tissue surrounding the celiac axis which is T2 hyperintense and T1 hyperintense. This demonstrates delayed enhancement at 5 minutes and corresponds to the low-density material seen on CT. Fluid: There is no ascites in the upper abdomen. Visualized bowel: The visualized bowels loops are unremarkable in appearance. Visualized bones: The visualized bones demonstrate normal marrow signal intensity. MR/MR abdomen wo/w con IMPRESSION: 1. Limited examination due to magnetic susceptibility artifact from the metallic clip in the stomach. 2. Hepatosplenomegaly. 3. Ill-defined soft tissue surrounding the celiac axis which demonstrates delayed enhancement. Imaging findings are nonspecific, but could represent IgG4 related disease. Assessment & Plan Assessment & Plan (1) Constipation: Code(s): K59.00 - Constipation, unspecified Category: Medical Qualifiers: Constipation type: drug induced constipation Qualified Code(s): K59.03 - Drug induced constipation (2) Liver fibrosis: Code(s): K74.00 - Hepatic fibrosis, unspecified Category: Medical (3) GERD (gastroesophageal reflux disease): Code(s): K21.9 - Gastro-esophageal reflux disease without esophagitis Category: Medical Qualifiers: Esophagitis presence: without esophagitis Qualified Code(s): K21.9 - Gastro-esophageal reflux disease without esophagitis (4) Anemia: Code(s): D64.9 - Anemia, unspecified Category: Medical Qualifiers: Anemia type: unspecified type Qualified Code(s): D64.9 - Anemia, unspecified (5) Total bilirubin, elevated: Code(s): R17 - Unspecified jaundice Category: Medical (6) Skin rash: Code(s): R21 - Rash and other nonspecific skin eruption Category: Medical (7) NAFL (nonalcoholic fatty liver): Code(s): K76.0 - Fatty (change of) liver, not elsewhere classified Category: Medical Plan Will check liver fibrosis. Continue low-fat, low-salt, low carb and high-protein diet. Continue avoiding alcohol. Continue PPI and sucralfate. Patient will stop senna and start taking Dulcolax. Increase fluid intake and activity to promote better bowel motility. All of her blood work as well as her CT scan and MRI were discussed with patient. IgG4 negative I recommend repeating MRI in 6-8 months to evaluate celiac axis. I will reach out to radiologist who read the MRI to see if we can get specific celiac axis ultrasound to to rule out stenosis or narrowing related to surrounding tissue that could compromise blood flow to the liver or other surrounding organs. Patient will return in 3 months. She is agreeable to current plan of care and verbalizes understanding of the instructions. She will call us in a couple of days with report from her visits with nuclear physics teacher and cannon fire direction specialist. Patient was given the opportunity to ask questions and all questions answered. Thank you for allowing me Orders: Orders Liver Fibrosis Pnl Today K76.0 - Fatty (change of) liver, not elsewhere classified Medications: New bisacodyl (Dulcolax (bisacodyl)) 10 mg (2 x 5 mg) PO BEDTIME 180 tabs 4RF constipation Refilled sucralfate 10 mL PO BEDTIME 400 mL 3RF K21.9 - Gastro-esophageal reflux disease without esophagitis Discontinued sennosides (Natural Senna Laxative) Discontinued Reason: Doctor's Order 17.2 mg (2 x 8.6 mg) PO BEDTIME 180 tabs 3RF constipation K59.00 - Constipation, unspecified Coding Level of Care Code Est Pt Level 4 (31600) Complex EM visit Add On G2211 Diagnoses Drug-induced constipation K59.03 Constipation type: drug induced constipation Liver fibrosis K74.00 Gastroesophageal reflux disease without esophagitis K21.9 Esophagitis presence: without esophagitis Anemia, unspecified type D64.9 Anemia type: unspecified type Total bilirubin, elevated R17 Skin rash R21 NAFL (nonalcoholic fatty liver) K76.0 Time Spent (min) 45 Comment 30 minutes spent with patient and additional 15 minutes for spent reviewing her records
[2024-08-13 09:08] VITALS: BP 144/76; PULSE 58; O2SAT 100; BMI 32.5
--- OUTSIDE RECORDS SUMMARY | 2024-08-13 09:19 | XMS_ITS | Clinical Summary ---
Author Organization [facility] Address [address] [place] [id number] Phone Care Team Providers Care Candy Butcher Name Role Phone Unavailable Primary Care Provider [...]
--- OUTSIDE RECORDS SUMMARY | 2024-08-13 09:19 | XMS_ITS | Encounter Summary ---
Author Organization [facility] Address [address] [place] [address] Phone Care Team Providers Care [employer] Worker Name Role Phone Emma Lizarraga MD Primary Care Provider [phone] Encounter Details Date Type Department Care Team (Late st Contact Info) Description 11/10/2016 Conversion Encounter [facility] [place] [address] [place] [address] Social History Tobacco Use Types Packs/Day Years [...] on filedocumented in this encounter Care Teams [employer] Worker Relationship Specialty Start Date End Date Emma Lizarraga MD [address] [place] [address] PCP - General 11/04/16 05/11/22 documented as of this encounter
== END 2024-08-13 09:49 | disposition home or self-care (01) ==
LOC: HO.HGI 08:54
PROVIDERS: PCP Physician Assistant; Visit Provider Nurse Practitioner Family
DX: K59.03 Drug induced constipation (principal); K74.00 Hepatic fibrosis, unspecified; K21.9 Gastro-esophageal reflux disease without esophagitis; D64.9 Anemia, unspecified; R21 Rash and other nonspecific skin eruption; K76.0 Fatty (change of) liver, not elsewhere classified
CPT/HCPCS: 99214; G2211

== ENCOUNTER → 2024-08-13 08:54 | Outpatient (BNVA) | payer OTHER, SELFPAY | PROVIDERS: PCP Physician Assistant; Visit Provider Nurse Practitioner Family | DX: K59.03 Drug induced constipation (principal); K21.9 Gastro-esophageal reflux disease without esophagitis; K74.00 Hepatic fibrosis, unspecified; D64.9 Anemia, unspecified; R17 Unspecified jaundice; R21 Rash and other nonspecific skin eruption; K76.0 Fatty (change of) liver, not elsewhere classified | CPT/HCPCS: 99212 ==

== ENCOUNTER 2024-08-14 07:49 | Outpatient (AMB) | payer OTHER, SELFPAY ==
--- NOTE | 2024-08-14 07:51 | MHC.OFFVIS ---
Vital Signs 08/14/24 07:55 Height 5 ft 8 in Weight 220 lb 7.396 oz BMI 33.5 BP 140/80 H Blood Pressure Location Lt brachial Position Sitting Pulse 53 Pulse Source Pulse Oximeter Pulse Oximetry (%) 100 Oxygen Delivery Method Room Air Intake Visit Reasons: follow up Intake Note: Patient presents for skin rash follow up. Allergies No Known Allergies Allergy (Verified 08/14/24 07:54) Medication List - Last Reconciled 08/14/24 by Myriam Pitts MD bisacodyl (Dulcolax (bisacodyl)) 10 mg (2 x 5 mg) PO BEDTIME chlorhexidine gluconate 4% (Hibiclens) topical cholecalciferol (vitamin D3) 50 mcg PO DAILY cyanocobalamin (vitamin B-12) 1,000 mcg sublingual DAILY docusate sodium (Colace) 100 mg PO BID 30 days esomeprazole magnesium (Nexium) 40 mg PO DAILY ferrous sulfate 325 mg PO BID 90 days folic acid 1 mg PO DAILY lorazepam 0.5 mg PO BID PRN 5 days magnesium oxide 400 mg PO DAILY ondansetron 4 mg PO Q6H sertraline 100 mg PO DAILY 30 days sucralfate 10 mL PO BEDTIME triamcinolone acetonide 0.1% 1 appl topical DAILY 30 days HPI Comments Details: Patient is a 34 year old female with hidradenitis suppurativa, liver fibrosis secondary to ?, generalized anxiety disorder, hypertension, GERD here today for follow up Interval History: Patient last seen 08/02/2024 with me. At that time she was establishing care for the evaluation multiple complaints. Since then blood work has been unrevealing for an underlying autoimmune cause with overall negative results. Interestingly her scan of her abdomen showed a mass surrounding the celiac plexus. 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 No changes in her symptoms since last visit Rheumatologic History: Patient's history starts a year ago. She started feeling unwell and had routine blood work and was found to have anemia and elevated liver enzymes She subsequently had hematology referral and bone marrow biopsies which did not show any myeloproliferative disorders. She received iron infusions and had slow improvement in her hemoglobin. The underlying cause was never found. She subsequently was evaluated for her persistently elevated liver enzymes and was found to have mild liver cirrhosis. It was unclear what this was secondary to whether it was a nonalcoholic fatty liver disease or alcohol. At that time patient states that she was drinking alcohol more heavily to cope with her pain. She reports pain involving her knees, her lower legs, her upper arms and shoulders. She denies prolonged morning stiffness involving the hands and wrists. No swelling to the hands. She denies Raynaud's but has been noticing a blue tinge to her feet and extreme feelings of cold to her fingers. She also noted a rash on her abdomen as well as her lower extremities. She followed with derm but was diagnosed with shingles and no further workup was done. She was instructed to follow up with Rheumatology. She reports unexplained weight loss, night sweats. No overt fevers. Has never been . No clots in the lungs She saw a provider who noted the hemorrhagic telangiectasias to her lips and was concerned that she may have hereditary here or hemorrhagic telangiectasias. She was sent to be evaluated for aneurysms and imaging so far has been unremarkable. Current Rheumatology Medication(s): [facility] Medical History (Updated 08/13/24 @ 20:05 by Elyssa Phan [facility]) NAFL (nonalcoholic fatty liver) Bone marrow disorder Anemia Surgical History Hx of colonoscopy History of esophagogastroduodenoscopy (EGD) Hx of cholecystectomy Family History Father Diabetes Maternal Grandmother Breast cancer Family/Other Lymphoma Social History Household Members: Family Housing: Apartment Are you a primary chronic care nurse to a significant other at home: No Do you presently have visiting nurse or other home services: No Alcohol intake: current Alcohol intake frequency: holidays/special occasions only Alcohol type: beer Patient Tobacco Use Status: Never used Tobacco e-Cigarette/Vaping Use: Never Used Second Hand Smoke Exposure: No service: No Current occupational status: employed 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 Cognitive needs: No Hearing needs: No Vision needs: No Female Reproductive History Menstrual Age of Menarche: 10 Review of Systems Const Details: Review of Systems Constitutional: Denies fever, chills, weight loss ENT: Denies vision changes, eye pain or eye redness, dental caries, dry mouth GI: Denies nausea, vomiting, diarrhea, abdominal pain, change in BM Pulm: Denies SOB, RAI, hemoptysis, wheezing Cards: Denies chest pain, palpitations Skin: Denies Raynaud's, rash, nail changes, photosensitivity, FRAME SAMPLE AND PATTERN 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 Well appearing and in no apparent painful distress HEENT Conjunctiva and sclera clear. ?Pupils equal round and reactive to light. ?No lymphadenopathy. ? CHEST/RESPIRATORY SYSTEM Normal respiratory effort and able to speak in complete sentences. ?Clear to auscultation bilaterally. ?No crackles, rales, rhonchi, wheezes heard. CARDIAC SYSTEM Regular rate and rhythm. ?S1 and S2 heard no murmurs. ?Radial pulses intact bilaterally MSK Hands: ?Able to make a fist. No synovitis noted to the MCPs, PIPs or DIPs. ?No tenderness to palpation of these joints. No deformities noted. ? Wrists: ?Full range of motion at the wrists without pain. ?No tenderness to palpation or synovitis noted to the wrists. Elbows: Full range of motion without pain. No tenderness, weakness, swelling, increased warmth or erythema. Shoulders: Full range of active range of motion without pain. No tenderness, weakness, swelling, increased warmth or erythema. Knees: ?Full range of motion. ?No tenderness, swelling, increased warmth or erythema.?No effusion or crepitations Ankles: Full range of motion. ?No tenderness, swelling, increased warmth or erythema.? Feet: ?Negative squeeze test. ?No tenderness to palpation or swelling of the MTPs. Tender points:?No tenderness to palpation of the bilateral trapezius, supraspinatus, greater trochanters, anterior costochondral junctions, bilateral gluteal areas, bilateral suboccipital muscle insertions SKIN Spider telangiectasias noted to upper chest and face. Hemorrhagic telangiectasias noted to her lips Livedo reticularis Normal nail fold capillary dermoscopy Blue hue to the feet Results Reviewed Results Reviewed: Laboratory Tests 08/02/24 08/06/24 14:43 14:54 WBC 7.4 RBC 4.44 Hgb 13.2 Hct 38.7 Plt Count 146 L ESR 11 Sodium 139 Potassium 4.0 Chloride 106 Carbon Dioxide 25 BUN 20 H Creatinine 0.87 Ferritin 162 H AST 31 ALT 26 Alkaline Phosphatase 70 C-Reactive Protein 0.13 Angiotensin Convert Enz 66 Laboratory Tests 08/06/24 14:54 Lupus Anticoag Interp negative Beta-2-GPI IgG Ab <2.0 Beta-2-GPI IgA Ab <2.0 Beta-2-GPI IgM Ab <2.0 Anti-Cardiolipin IgG Ab <2.0 Anti-Cardiolipin IgM Ab <2.0 Laboratory Tests 08/02/24 14:43 Screen NEGATIVE Proteinase 3 (PR3) Ab <1.0 Myeloperoxidase Ab <1.0 SS-A/Ro Antibody <1.0 NEG SS-B/La Antibody <1.0 NEG Sm (Avendano) Antibody <1.0 NEG SM/SEED PRODUCTION FIELD SUPERVISOR IgG Antibody <1.0 NEG Scl-70 Scleroderma Ab <1.0 NEG Double Strand DNA Ab <1 Centromere B Antibody <1.0 NEG Complement C3 154 Complement C4 23 Laboratory Tests 08/02/24 14:43 IgG Total 1354 IgG Subclass 1 694 IgG Subclass 2 435 IgG Subclass 3 38 IgG Subclass 4 12.3 IgA Total 453 H IgM 235 MR Abdomen w/wo con 07/2024 FINDINGS: There is a large focus of magnetic susceptibility artifact related to a metallic clip in the stomach as noted on CT. Liver: The liver is enlarged and demonstrates heterogeneous T2 signal intensity. There is no loss of signal intensity in the liver on opposed phase imaging to suggest steatosis. There is no enhancing liver mass. The hepatic and portal veins are patent. There is no intra- or extrahepatic biliary dilatation. Gallbladder: The patient is status post cholecystectomy. Spleen: The spleen is enlarged. No focal splenic lesion is identified. Pancreas: The pancreatic body and tail are obscured by magnetic susceptibility artifact from the gastric clip. The pancreatic head is unremarkable in appearance. Adrenals: The adrenal glands are unremarkable. Kidneys: The kidneys are unremarkable. There is no hydronephrosis. Lymph nodes: There is no retroperitoneal lymphadenopathy in the upper abdomen. There is ill-defined soft tissue surrounding the celiac axis which is T2 hyperintense and T1 hyperintense. This demonstrates delayed enhancement at 5 minutes and corresponds to the low-density material seen on CT. Fluid: There is no ascites in the upper abdomen. Visualized bowel: The visualized bowels loops are unremarkable in appearance. Visualized bones: The visualized bones demonstrate normal marrow signal intensity. IMPRESSION: 1. Limited examination due to magnetic susceptibility artifact from the metallic clip in the stomach. 2. Hepatosplenomegaly. 3. Ill-defined soft tissue surrounding the celiac axis which demonstrates delayed enhancement. Imaging findings are nonspecific, but could represent IgG4 related disease. CTA Chest 06/2024 Findings: The heart is normal size. RV/LV ratio is normal. The thoracic aorta is normal caliber. No acute pulmonary embolus. The visualized thyroid and mediastinum are unremarkable. The lungs are clear. Undefined low-attenuation soft tissue lesion is seen in the retroperitoneum surrounding the celiac axis of uncertain nature. The bones are intact. IMPRESSION: 1. Low-attenuation /Fatty material is seen in the retroperitoneum in the region of the gastrohepatic ligament and surrounding the celiac axis. Findings could represent a localized inflammatory process involving the retroperitoneal fat. Findings could represent localized panniculitis. Consider correlating with MRI. CTA Abdomen 06/2024 Findings: The heart is normal size. There is a moderate hiatal hernia. No consolidation or effusion. The aorta is unremarkable. There is no evidence of AVN. There is hepatosplenomegaly. No focal lesions are identified. The patient is status post cholecystectomy. 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 The bones are intact. The visualized GI tract is otherwise unremarkable. IMPRESSION: 1. There is a moderate hiatal hernia. 2. There is hepatosplenomegaly. No focal lesions are identified. 3. 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 Assessment & Plan Assessment & Plan (1) Skin rash: Code(s): R21 - Rash and other nonspecific skin eruption Category: Medical Plan: #Rash Patient is a 34-year-old female who presents for evaluation of multiple complaints. At this time she does not meet criteria for any autoimmune connective tissue disease such as lupus, scleroderma or Sjogren's. The lab work supports this with negative and NUZHAT panel. Normal complements. Discuss her scans with Radiology and an MRI was pursued which showed a mass surrounding the celiac plexus. Even though her IgG4 levels were not elevated she does have some eosinophilia I think at this time she would need to get a biopsy of this mass. We will reach out to radiology specifically Interventional Radiology to see if this can be facilitated Plan - Reach out to radiology to see if the mass can be biopsied - Follow up once biopsy done - Refer to derm for biopsy of rash Plan I spent 40 minutes reviewing the record and labs, taking a history, examining the patient, discussing the treatment plan, ordering diagnostic work up, Contacting radiology at [facility] and documenting in the medical record Orders: Referrals Dermatology Referral R21 - Rash and other nonspecific skin eruption Coding Level of Care Code Est Pt Level 5 (79768) Diagnoses Skin rash R21
[2024-08-14 07:55] VITALS: BP 140/80; PULSE 53; O2SAT 100; BMI 33.5
--- OUTSIDE RECORDS SUMMARY | 2024-08-14 08:18 | XMS_ITS | Clinical Summary ---
Author Organization [facility] Address [address] [place] [id number] Phone Care Team Providers Care Home Economist Name Role Phone Unavailable Primary Care Provider [...]
== END 2024-08-14 08:35 | disposition home or self-care (01) ==
LOC: HO.RHE 07:50
PROVIDERS: PCP Physician Assistant; Visit Provider Student in an Organized Health Care Education/Training Program
DX: R21 Rash and other nonspecific skin eruption (principal)
CPT/HCPCS: 99215

== ENCOUNTER → 2024-08-14 07:49 | Outpatient (BNVA) | payer OTHER, SELFPAY | PROVIDERS: PCP Physician Assistant; Visit Provider Student in an Organized Health Care Education/Training Program | DX: R21 Rash and other nonspecific skin eruption (principal) | CPT/HCPCS: 99212 ==

== ENCOUNTER 2024-09-24 11:53 | Outpatient (REF) | payer OTHER, SELFPAY ==
[2024-09-24 12:31] LABS: Hematocrit 38.7 % (37.0-47.0); Hemoglobin 13.2 g/dl (12.0-16.0); Mean Corpuscular HGB Conc 34.1 g/dl (31.0-35.0); Mean Corpuscular Hemoglobin 29.3 pg (27.0-33.0); Mean Corpuscular Volume 85.8 fL (80.0-98.0); NRBC Abs Auto 0.000 X10*3/uL (0.0-0.012); NRBC Pct Auto 0.0 /100WBC (0.0-0.2); Platelet Count 159 X10*3/uL (160-400); Red Blood Count 4.51 X10*6/uL (4.20-5.50); White Blood Count 7.0 X10*3/uL (4.8-10.8)
[2024-09-24 12:38] LABS: INTERNATIONAL NORM RATIO 1.2 (0.9-1.1); Prothrombin Time 13.8 SEC (10.9-12.4)
[2024-09-24 13:07] LABS: Alanine Aminotransferase 27 U/L (0-31); Albumin Level 4.8 g/dL (3.5-5.0); Alkaline Phosphatase 62 U/L (39-117); Anion Gap 11 (12-20); Aspartate Amino Transferase 31 U/L (5-31); Blood Urea Nitrogen 17 mg/dL (9-16); Calcium 9.6 mg/dL (8.4-10.2); Carbon Dioxide 27 mmol/L (22-29); Chloride 103 mmol/L (96-108); Estimated Glomerular Filt Rate > 60; Iron 80 mcg/dL (30-160); Percent Iron Saturation 27 % (15-50); Potassium 4.1 mmol/L (3.3-5.1); Sodium 137 mmol/L (135-145); Total Iron Binding Capacity 296 mcg/dL (228-428); Total Protein 8.1 g/dL (6.5-8.0); Unsaturated Iron Binding 216 ug/dL
[2024-09-24 13:29] LABS: Folate 18.6 ng/mL (> or = 4.0); Vitamin B12 1222 pg/mL (200-900)
== END 2024-09-24 11:54 | disposition home or self-care (01) ==
LOC: HO.LAB 11:53
PROVIDERS: PCP Physician Assistant; Visit Provider Physician Assistant
DX: R23.3 Spontaneous ecchymoses (principal); D50.9 Iron deficiency anemia, unspecified; E53.8 Deficiency of other specified B group vitamins
CPT/HCPCS: 36415; 80053; 82607; 82746; 83540; 84443; 85027; 85610

== ENCOUNTER 2024-10-22 09:39 | Outpatient (AMB) | payer OTHER, SELFPAY ==
--- NOTE | 2024-10-22 09:46 | A.OFFPC_ITS ---
Vital Signs 10/22/24 09:47 Height 5 ft 8 in Weight 230 lb 2 oz BMI 35.0 BP 132/82 Blood Pressure Location Lt brachial Position Sitting Pulse 78 Pulse Source Pulse Oximeter Temp 97.1 F Temp Source Temporal Artery Scan Pulse Oximetry (%) 96 Oxygen Delivery Method Room Air Intake Visit Reasons: ANNUAL Intake Note: Patient is here today for a physical. Mounting Inspector Required: No Skiver Hand: Not Required per policy Accompanied by: Self / Same As Patient Allergies No Known Allergies Allergy (Verified 10/22/24 10:17) Medication List - Last Reconciled 10/22/24 by Abdi Lester PA-C bisacodyl (Dulcolax (bisacodyl)) 10 mg (2 x 5 mg) PO BEDTIME chlorhexidine gluconate 4% (Hibiclens) 1 appl topical DAILY 4 weeks cholecalciferol (vitamin D3) 50 mcg PO DAILY cromolyn mg PO BID cyanocobalamin (vitamin B-12) 1,000 mcg sublingual DAILY docusate sodium (Colace) 100 mg PO BID 30 days esomeprazole magnesium 40 mg PO DAILY ferrous sulfate 325 mg PO BID 90 days folic acid 1 mg PO DAILY lorazepam 0.5 mg PO BID PRN 5 days magnesium oxide 400 mg PO DAILY ondansetron 4 mg PO Q6H sertraline 100 mg PO DAILY 30 days sucralfate 10 mL PO BEDTIME triamcinolone acetonide 0.1% 1 appl topical DAILY 30 days Tobacco use date assessed: 10/22/24 Dental Screening Dental Screen Date: 05/15/24 HPI ANNUAL HPI Details Patient is a 34-year-old female here today for annual physical Concern--> The patient reports a rash that began as dry, red, and painful, eventually forming a scab. It initially appeared on her hands and has spread to her back. She is concerned it might be a bacterial infection, as it resembles a previous shingles outbreak. She has an upcoming dermatology appointment and is considering a skin biopsy due to persistent skin issues. She also has a persistent skin rash associated with pruritus. The rash extends from the chest to the back and sides, and has been noted to bleed occasionally when scratched, especially at night. The patient reports a history of skin sensitivity and has used Aveeno moisturizer since childhood. Previously trialed treatments provided only temporary relief. She has a family history of skin cancer . She has recently seen a collar tailor and was started on cromolyn. Lower extremity varicose veins: Now followed by [place] vascular surgeon Normochromic anemia: Most recent labs showing improved CBC . Last year Labs were abnormal 4 normocytic anemia and hypokalemia. She has underwent a repeat bone marrow biopsy and some genetic testing. She has been referred to another plisse machine operator helper [facility] for 2nd opinion She has been set up with iron infusions . She has been transitioned to oral B12. Her CBC has much improved. It seems she has been feeling a bit better and her hair loss and thinning has improved. .. Liver fibrosis: Patient followed [place] gastroenterology. Liver enzymes have improved overall though still slightly elevated. Abdominal imaging an ultrasounds continue to show hepatosplenomegaly. WE HAVE RECENTLY DONE A GROUP HUDDLE CONFERENCE AND DETERMINED THAT A LIVER BIOPSY MAY BE THE BEST NEXT STEP TO EVALUATE FOR SARCOIDOSIS OR AMYLOIDOSIS. ... Generalized anxiety disorder: We have recently increased her sertraline to 100 mg daily unfortunately has noted weight gain since the increase. She does report her anxiety has been much better. We did discuss perhaps reducing her anxiety medication sertraline back down to 50 mg though patient is still considering. Would like to continue medication for now. She has use lorazepam 0.5 mg on very limited basis. 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 [place] Vaccines: Up-to-date with COVID vaccine, tetanus vaccine [facility] Medical History NAFL (nonalcoholic fatty liver) Bone marrow disorder Anemia Surgical History Hx of colonoscopy History of esophagogastroduodenoscopy (EGD) Hx of cholecystectomy Family History Father Diabetes Maternal Grandmother Breast cancer Family/Other Lymphoma Social History (Updated 10/22/24 @ 10:20 by Abdi Lester PA-C) Household Members: Family Housing: Apartment Are you a primary assisted living care manager to a significant other at home: No Do you presently have visiting nurse or other home services: No Alcohol intake: former Patient Tobacco Use Status: Never used Tobacco e-Cigarette/Vaping Use: Never Used Second Hand Smoke Exposure: No Substance Use Type: Marijuana service: No Current occupational status: employed Current occupation: [employer] Cognitive needs: No Hearing needs: No Vision needs: No Female Reproductive History Menstrual Age of Menarche: 10 Questionnaire PHQ-9 Over the last 2 weeks, how often have you been bothered by any of the following problems? 1. Little interest or pleasure in doing things: several days 2. Feeling down, depressed, or hopeless: not at all 3. Trouble falling or staying asleep, or sleeping too much: not at all 4. Feeling tired or having little energy: not at all 5. Poor appetite or overeating: not at all 6. Feeling bad about yourself - or that you are a failure or have let yourself or your family down: not at all 7. Trouble concentrating on things, such as reading the newspaper or watching television: not at all Depression Screening Interpretation: Positive Depression Screening Done: Yes Source: Developed by Drs. Amadeo Rangel, Rosa Isela Cameron, Chris Isabel and colleagues, with an educational pino from [employer]. Thrive Questionnaire Date Thrive assessed: 05/15/24 MIRYAM-7 AMB Questionnaire MIRYAM-7 Date MIRYAM - 7 assessed: 05/15/24 Source: Developed by Drs. Amadeo Rangel, Chris Quijano and colleagues, with an educational pino from [employer]. Review of Systems Const Denies body aches, Denies chills, Denies excessive sweating, Denies fatigue, Denies fever(s) and Denies headache(s) Eyes Denies blurry vision ENT Denies dysphagia, Denies vertigo, Denies dizziness, Denies headache(s), Denies hearing loss and Denies tinnitus Card Denies chest pain, Denies chest pain with activity, Denies syncope, Denies irregular heart rhythm and Denies dyspnea Resp Denies chest congestion, Denies cough, Denies hemoptysis, Denies dyspnea and Denies wheezing GI Denies abdominal pain, Denies melena, Denies hematochezia, Denies coffee ground emesis, Denies dysphagia, Denies diarrhea, Denies nausea and Denies vomiting Denies urinary frequency, Denies dysuria, Denies urinary hesitancy and Denies urinary urgency Musc Denies arthralgias, Denies limited range of motion, Denies muscle cramps and Denies muscle weakness Skin/Breast Denies rash and Denies skin ulcer Neuro Denies Abnormal speech present, Denies confusion, Denies vertigo, Denies dizziness, Denies syncope, Denies headache(s), Denies memory loss and Denies seizure-like activity Psych Denies anxiety, Denies confusion, Denies depression, Denies memory loss, Denies panic attacks and Denies paranoia Endo Denies excessive sweating, Denies fatigue, Denies flushing, Denies polydipsia and Denies polyuria Aller/Immun Denies wheezing Physical exam (Primary Care) Vital Signs: Last Vital Signs Temp 97.1 F 10/22/24 09:47 Pulse 78 10/22/24 09:47 BP 132/82 10/22/24 09:47 Pulse Ox 96 10/22/24 09:47 Oxygen Delivery Method Room Air 10/22/24 09:47 BMI result Body Mass Index 35.0 BMI Assessment/Plan discussion: High BMI High, discussed plan: lifestyle, weight reduction, dietary and physical activity Tobacco/Smoking Status: Tobacco use Status Tobacco use date assessed 10/22/24 10/22/24 09:52 Patient Tobacco Use Status Never used Tobacco 10/22/24 10:20 e-Cigarette/Vaping Use Never Used 10/22/24 10:20 Depression Screening Interpretation: Positive Thrive Assessment: Date of Thrive Assessment Date Thrive assessed 05/15/24 10/22/24 09:52 Const General: cooperative, comfortable, no acute distress, alert and awake; No confusion Orientation/consciousness: oriented to person, oriented to place, patient oriented x3 and No confusion HENMT Head: Yes normocephalic Ears: external ears normal and TM's normal bilaterally Face and sinus: No sinus tenderness Mouth: Normal oral and palatal mucosa present and tongue normal Teeth and gingiva: dentition normal and gingiva normal Throat: Yes posterior oropharynx normal, Yes tonsils normal and Yes uvula midline Eyes Conjunctivae: conjunctivae normal Sclerae: sclerae normal Pupils: Equal, round and reactive pupils present EOM: EOMs intact bilaterally Direct Ophthalmoscopy: No no photophobia Neck Neck: Yes no lymphadenopathy, No tender and Yes no JVD Thyroid: Thyroid normal Carotids: no bruits Chest Chest palpation & inspection: no tenderness Resp Effort & Inspection: normal respiratory effort, no audible wheezes, not labored and no stridor Auscultation: no crackles, no rales, no rhonchi and no wheezes Cardio Jugular venous distension: no JVD Rate: regular rate, not bradycardic and not tachycardic Rhythm: regular rhythm Bruits: no carotid bruits Peripheral pulses: Peripheral pulses 2+ throughout GI Inspection: Yes normal to inspection, No abdominal wall ecchymosis and No visible herniation Palpation (GI): Soft to palpation, nontender, no guarding, not rigid and No hepatosplenomegaly present Auscultation: normoactive bowel sounds General: Yes no CVA tenderness Back/Spine/Pelvis Back: no CVA tenderness and No back tenderness Cervical Spine: cervical ROM normal Thoracic/Lumbar Spine: thoracic and lumbar spine normal to inspection, straight leg raise negative bilaterally, No thoraco-lumbar ROM limited and No lumbar spinal tenderness Skin Lesions: no lesions Rashes: no rashes Wounds: no wounds Neuro General: oriented to person, oriented to place, patient oriented x3, CN's II-XI intact bilaterally and No confusion Cranial nerves: Yes Equal, round and reactive pupils present and Yes Normal accommodation reflex present Cognition (Neuro): normal cognition Speech: No Abnormal speech present Gait exam (Neuro): Normal gait present Motor exam (neuro): 5/5 motor strength present throughout Extrem Right upper extremity: full ROM; no cyanosis Left upper extremity: full ROM; no cyanosis Right lower extremity: no edema Left lower extremity: no edema Psych Appearance: grossly normal Mental Status: mental status grossly normal Affect: normal affect Attitude: cooperative Thought process: Normal thought process present Coding Level of Care Code Est Pt Prev Care 18-39y(85715) Diagnoses Annual physical exam Z00. Liver fibrosis K74.00 Skin rash R21 Normochromic normocytic anemia D64.9 MIRYAM (generalized anxiety disorder) F41.1 Class 2 obesity E66.812 Assessment & Plan Assessment & Plan (1) Annual physical exam: Code(s): Z00.00 - Encounter for general adult medical examination without abnormal findings Category: Medical Plan: As per HPI (2) Liver fibrosis: Code(s): K74.00 - Hepatic fibrosis, unspecified Category: Medical Plan: Will continue to follow gastroenterology here in [place]. Is due for repeat liver ultrasound to evaluate for improving liver fibrosis. Most recent liver enzymes fairly stable. The patient has been advised to consider a liver biopsy to investigate potential sarcoidosis or amyloidosis, as discussed with specialists. The risks, including bleeding, were explained, and the procedure will be coordinated with an interventional radiologist. (3) Skin rash: Code(s): R21 - Rash and other nonspecific skin eruption Category: Medical Plan: Will supply patient with topical triamcinolone lotion to help with the itch over her abdomen. The patient is scheduled for a dermatology appointment to evaluate the rash further. A skin biopsy may be performed to determine the cause, and a topical antibiotic ointment is recommended to prevent bacterial infection. (4) Normochromic normocytic anemia: Code(s): D64.9 - Anemia, unspecified Category: Medical Plan: Continues to follow [place] hematology. Continues on iron supplementation and B12 supplementation. Most recent CBC has not improved. (5) MIRYAM (generalized anxiety disorder): Code(s): F41.1 - Generalized anxiety disorder Category: Medical Plan: The patient is currently managed on sertraline and uses lorazepam occasionally. Cromolyn has been prescribed for potential mast cell issues, and hydroxyzine may be considered for itch relief associated with anxiety. (6) Class 2 obesity: Code(s): E66.812 - Obesity, class 2 Category: Medical Plan: Patient does understand her BMI is 35. Have noted recent weight gain over the last 3 months in the setting of increasing sertraline The patient is considering reducing the sertraline dosage to manage weight gain. A follow-up will be scheduled to monitor the effects of dosage adjustment on weight and anxiety symptoms. Orders: Orders CT biopsy liver Today K74.00 - Hepatic fibrosis, unspecified Medications: New hydroxyzine HCl 25 mg PO BID PRN 60 tabs 3RF itching 30 days K76.0 - Fatty (change of) liver, not elsewhere classified Changed From chlorhexidine gluconate 4% (Hibiclens) topical R21 - Rash and other nonspecific skin eruption To chlorhexidine gluconate 4% (Hibiclens) 1 appl topical DAILY 473 mL 2RF 4 weeks R21 - Rash and other nonspecific skin eruption Refilled lorazepam 0.5 mg PO BID PRN 10 tabs 0RF anxiety 5 days F41.1 - Generalized anxiety disorder
[2024-10-22 09:47] VITALS: BP 132/82; PULSE 78; TEMP 36.2; O2SAT 96; BMI 35.0
--- OUTSIDE RECORDS SUMMARY | 2024-10-22 10:14 | XMS_ITS | Encounter Summary ---
Author Organization [facility] Address [address] [place] [address] Phone Care Team Providers Care Ancillary Specialist Name Role Phone Emma Lizarraga MD Primary Care Provider [phone] Encounter Details Date Type Department Care Team (Late st Contact Info) Description 11/10/2016 Conversion Encounter [facility] [place] [address] [place] [address] Social History Tobacco Use Types Packs/Day Years [...] on filedocumented in this encounter Care Teams Ancillary Specialist Relationship Specialty Start Date End Date Emma Lizarraga MD [address] [place] [address] PCP - General 11/04/16 05/11/22 documented as of this encounter
== END 2024-10-22 10:48 | disposition home or self-care (01) ==
LOC: HO.HMCH 09:40
PROVIDERS: PCP Physician Assistant; Visit Provider Physician Assistant
DX: Z00.00 Encounter for general adult medical examination without abnormal findings (principal); K74.00 Hepatic fibrosis, unspecified; E66.812 Obesity, class 2; Z68.35 Body mass index [BMI] 35.0-35.9, adult; R21 Rash and other nonspecific skin eruption; D64.9 Anemia, unspecified; F41.1 Generalized anxiety disorder

== ENCOUNTER 2024-11-05 11:08 | Day surgery (SDC) | payer OTHER, SELFPAY ==
--- OUTSIDE RECORDS SUMMARY | 2024-10-29 13:09 | XMS_ITS | Encounter Summary ---
Author Organization [facility] Address [address] [place] [address] Phone Care Team Providers Care Administrative Fellow Name Role Phone Emma Lizarraga MD Primary Care Provider [phone] Encounter Details Date Type Department Care Team (Late st Contact Info) Description 11/10/2016 Conversion Encounter [facility] [place] [address] [place] [address] Social History Tobacco Use Types Packs/Day Years [...] on filedocumented in this encounter Care Teams Administrative Fellow Relationship Specialty Start Date End Date Emma Lizarraga MD [address] [place] [address] PCP - General 11/04/16 05/11/22 documented as of this encounter
[2024-11-05] VITALS (18 sets, daily range): BP systolic 110–141; BP diastolic 65–81; PULSE 45–57; RESP 12–20; TEMP 36.7–36.8; O2SAT 97–100; BMI 34.3
--- NOTE | ~2024-11-05 | CT_ITS ---
PROCEDURE: CT GUIDED BIOPSY, LIVER CLINICAL INFORMATION: Elevated LFTs PROCEDURES: 1. Limited preprocedure CT of the upper abdomen. Permanent images saved in PACS. 2. CT-guided biopsy of the right hepatic lobe, nontarget 3. Limited postprocedure CT of the upper abdomen. Permanent images saved in PACS. MEDICATIONS: -Versed 1 mg, Fentanyl 50 mcg, and lidocaine 1% 10 mL SQ -Antibiotics: None -For additional details, please see nursing flowsheet. COMPLICATIONS: None ESTIMATED BLOOD LOSS: < 5 ml CONTRAST: None SPECIMENS: 5 x 18 g cores were sent for pathology MODERATE SEDATION TIME: 30 min PROCEDURE NOTE: The procedure, risks, benefits, and alternatives were carefully explained to the patient and written informed consent was obtained. The patient was placed supine on the CT table. A timeout was performed. A limited CT of the upper abdomen was performed to localize the liver and choose appropriate needle entry and trajectory. The patient was prepped and draped in usual sterile fashion. The skin and deeper soft tissues were anesthetized with lidocaine. Under CT guidance, a 17 gague trocar needle was advanced to the right hepatic lobe. A 18 gauge biopsy device was inserted through the trocar needle and advanced into the right hepatic lobe. A total of 5 cores were performed. The specimens were placed in formalin and one in solution for cytology and sent to pathology. The coaxial needle was removed while delivering a Gelfoam slurry. A dry dressing was applied and secured with Tegaderm. A limited postprocedure CT of the upper abdomen was performed, which did not demonstrate any hematoma. There were no immediate complications. The patient was stable after the procedure and was transferred to the post anesthesia care unit. The procedure was done under moderate sedation with a dedicated nurse for monitoring of vital signs. CT/CT biopsy liver Impression: CT-guided biopsy of right hepatic lobe, nontargeted. Electronically signed by: Tony Burns MD 11/05/2024 03:09 PM EDT
[2024-11-05 12:00] LABS: UPreg QC Valid YES
== END 2024-11-05 16:59 | disposition home or self-care (01) ==
PROVIDERS: Radiology Diagnostic Radiology; Student in an Organized Health Care Education/Training Program; PCP Physician Assistant; Visit Provider Physician Assistant
DX: D64.9 Anemia, unspecified (principal); K74.00 Hepatic fibrosis, unspecified; K74.60 Unspecified cirrhosis of liver; K76.0 Fatty (change of) liver, not elsewhere classified; D75.9 Disease of blood and blood-forming organs, unspecified; R23.3 Spontaneous ecchymoses; R21 Rash and other nonspecific skin eruption; Z84.0 Family history of diseases of the skin and subcutaneous tissue; F41.1 Generalized anxiety disorder; E66.812 Obesity, class 2; Z68.35 Body mass index [BMI] 35.0-35.9, adult; Z90.49 Acquired absence of other specified parts of digestive tract; Z79.899 Other long term (current) drug therapy
CPT/HCPCS: 47000; 77012; 81025; 86850; 86900; 86901; 88184; 88185; 88300; 88307; 88313; 88341; 88342; 99152; 99395; J2003; J2250; J3010

== ENCOUNTER → 2024-11-05 13:09 | Outpatient (BNV) | payer OTHER, SELFPAY | PROVIDERS: PCP Physician Assistant; Visit Provider Student in an Organized Health Care Education/Training Program | DX: R74.01 Elevation of levels of liver transaminase levels (principal) | CPT/HCPCS: 47000; 77012 ==

== ENCOUNTER 2024-11-16 13:53 | Outpatient (REF) | payer OTHER, SELFPAY ==
--- NOTE | ~2024-11-16 | MR_ITS ---
EXAMINATION: MR ABDOMEN WITHOUT THEN WITH IV CONTRAST HISTORY: R93.5 - Abnormal findings on diagnostic imaging of other abdominal region... COMPARISON: Comparison is made with the prior examination dated 08/11/2024. TECHNIQUE: Axial in and out of phase T1-weighted gradient echo, axial diffusion weighted, and axial and coronal HASTE T2 with fat saturation images were obtained through the abdomen. Subsequently, fat suppressed axial and coronal T1-weighted images were obtained after the intravenous administration of 10 mL Gadavist. FINDINGS: Liver: The liver is again noted to be enlarged. The liver demonstrates heterogeneous signal intensity on T1 and T2-weighted images. There is no loss of signal intensity in the liver on opposed phase imaging to suggest steatosis. There is heterogeneous enhancement on the arterial phase images without evidence of a discrete mass. The hepatic and portal veins are patent. There is no intrahepatic biliary dilatation. Gallbladder/biliary tree: The patient is status postcholecystectomy. The common bile duct is normal in caliber. No intraluminal filling defects are identified to suggest choledocholithiasis. Spleen: The spleen is enlarged. No focal splenic lesion is identified. Pancreas: The pancreas is unremarkable. There is no enhancing pancreatic mass. The pancreatic duct is normal in caliber. Adrenals: The adrenal glands are unremarkable. Kidneys: The kidneys are unremarkable. There is no hydronephrosis. Lymph nodes: Ill-defined T2 hyperintense tissue is again seen about the celiac axis. There is mild enhancement on delayed images which is less prominent than on the prior study. Evaluation is somewhat limited by magnetic susceptibility artifact from a surgical clip in the stomach. Fluid: There is no ascites in the upper abdomen. Visualized bowel: The visualized small and large bowel loops are unremarkable in appearance. Visualized bones: There is a probable vertebral hemangioma in the T8 vertebral body. Smaller probable hemangiomas are also noted at T12 and L2. MR/MR abdomen wo/w con IMPRESSION: 1. Hepatosplenomegaly with heterogeneous signal intensity and enhancement of the liver. No discrete mass is identified. Given the history of cirrhosis on CT guided biopsy 11/05/2024, screening for HCC is recommended. 2. The previously described ill-defined soft tissue of the celiac axis is somewhat less prominent. Electronically signed by: Amadeo Carrillo MD 11/18/2024 07:40 AM EDT
== END 2024-11-16 13:54 | disposition home or self-care (01) ==
LOC: HO.MRI 13:53
PROVIDERS: PCP Physician Assistant; Visit Provider Nurse Practitioner Family
DX: R93.5 Abnormal findings on diagnostic imaging of other abdominal regions, including retroperitoneum (principal); R16.2 Hepatomegaly with splenomegaly, not elsewhere classified; K74.00 Hepatic fibrosis, unspecified
CPT/HCPCS: 74183; A9585

== ENCOUNTER → 2024-11-16 13:53 | Outpatient (BNV) | payer OTHER, SELFPAY | PROVIDERS: PCP Physician Assistant; Visit Provider Radiology Diagnostic Radiology | DX: R16.2 Hepatomegaly with splenomegaly, not elsewhere classified (principal) | CPT/HCPCS: 74183 ==

== ENCOUNTER 2024-11-19 09:58 | Outpatient (REF) | payer OTHER, SELFPAY ==
--- OUTSIDE RECORDS SUMMARY | 2024-11-19 10:41 | XMS_ITS | Encounter Summary ---
Author Organization [facility] Address [address] [place] [address] Phone Care Team Providers Care Screw Machine Adjuster Automatic Name Role Phone Emma Lizarraga MD Primary Care Provider [phone] Encounter Details Date Type Department Care Team (Late st Contact Info) Description 11/10/2016 Conversion Encounter [facility] [place] [address] [place] [address] Social History Tobacco Use Types Packs/Day Years [...] on filedocumented in this encounter Care Teams Screw Machine Adjuster Automatic Relationship Specialty Start Date End Date Emma Lizarraga MD [address] [place] [address] PCP - General 11/04/16 05/11/22 documented as of this encounter
--- OUTSIDE RECORDS SUMMARY | 2024-11-19 10:41 | XMS_ITS | Clinical Summary ---
Author Organization [facility] Address [address] [place] [id number] Phone Care Team Providers Care Heavy Forging Machine Operator Name Role Phone Unavailable Primary Care [...] 08/08/2017 08/09/2007, 12/20/2000, 09/23/1998, Additional history exists COVID-19 Vaccine ( season) 2023 Influenza Vaccines (#1) 2024 01/01/2009 HIB Vaccines Completed 01/02/1990 IPV Vaccines Completed [...]
[2024-11-19 11:01] LABS: Platelet Count 142 X10*3/uL (160-400)
[2024-11-19 11:30] LABS: Alanine Aminotransferase 24 U/L (0-31); Albumin Level 4.9 g/dL (3.5-5.0); Alkaline Phosphatase 76 U/L (39-117); Aspartate Amino Transferase 27 U/L (5-31); Total Protein 8.2 g/dL (6.5-8.0)
[2024-11-19 12:10] LABS: Folate > 20.0 ng/mL (> or = 4.0); Vitamin B12 1401 pg/mL (200-900)
[2024-11-23 18:23] LABS: Vitamin D 25-OH, D2 <4 ng/mL; Vitamin D 25-OH, D3 24 ng/mL; Vitamin D 25-OH, Total 24 ng/mL (30-100)
[2024-11-23 19:13] LABS: FIB-ALT 15 U/L (6-29); FIB-Alpha-2-Macroglobulin 292 mg/dL (106-279); FIB-Apolipoprotein A1 140 mg/dL (101-198); FIB-GGT 140 U/L (3-50); FIB-Haptoglobin 38 mg/dL (43-212); FIB-Total Bilirubin 0.6 mg/dL (0.2-1.2); Liver Fibrosis Score 0.60; Liver Fibrosis Stage F3; Nec Inflam Act Grade A0; Nec Inflam Act Score 0.08
[2024-11-24 00:03] LABS: Vit B3 - Nicotinic Acid <20 ng/mL (see note)
== END 2024-11-19 09:59 | disposition home or self-care (01) ==
LOC: HO.LAB 09:58
PROVIDERS: PCP Physician Assistant; Visit Provider Nurse Practitioner Family
DX: K86.89 Other specified diseases of pancreas (principal); R79.89 Other specified abnormal findings of blood chemistry; R74.01 Elevation of levels of liver transaminase levels; R10.9 Unspecified abdominal pain; R19.7 Diarrhea, unspecified; K74.60 Unspecified cirrhosis of liver; K76.0 Fatty (change of) liver, not elsewhere classified; E55.9 Vitamin D deficiency, unspecified
CPT/HCPCS: 36415; 80076; 81596; 82105; 82306; 82607; 82746; 84207; 84252; 84590; 84591; 84597; 84630; 85049

== ENCOUNTER 2025-01-22 10:07 | Outpatient (AMB) | payer OTHER, SELFPAY ==
[2025-01-22 10:10] VITALS: BP 140/92; PULSE 56; TEMP 36.3; O2SAT 99; BMI 36.2
--- NOTE | 2025-01-22 10:10 | A.OFFPC_ITS ---
Vital Signs 01/22/25 10:10 Height 5 ft 9 in Weight 245 lb 2 oz BMI 36.2 BP 140/92 H Blood Pressure Location Lt brachial Position Sitting Pulse 56 Pulse Source Pulse Oximeter Temp 97.3 F Temp Source Temporal Artery Scan Pulse Oximetry (%) 99 Oxygen Delivery Method Room Air Intake Visit Reasons: f/u Anxiety Allergies No Known Allergies Allergy (Verified 01/22/25 10:29) Medication List - Last Reconciled 01/22/25 by Abdi Lester PA-C bisacodyl (Dulcolax (bisacodyl)) 10 mg (2 x 5 mg) PO BEDTIME carvedilol 3.125 mg PO BID chlorhexidine gluconate 4% (Hibiclens) 1 appl topical DAILY 4 weeks cholecalciferol (vitamin D3) 50 mcg PO DAILY cyanocobalamin (vitamin B-12) 1,000 mcg sublingual DAILY docusate sodium (Colace) 100 mg PO BID 30 days esomeprazole magnesium 40 mg PO DAILY folic acid 1 mg PO DAILY hydroxyzine HCl 25 mg PO BID PRN 30 days lorazepam 0.5 mg PO BID PRN 5 days magnesium oxide 400 mg PO DAILY ondansetron 4 mg PO Q6H sertraline 100 mg PO DAILY 30 days sucralfate 10 mL PO BEDTIME triamcinolone acetonide 0.1% 1 appl topical DAILY 30 days Tobacco use date assessed: 01/22/25 Dental Screening Dental Screen Date: 01/22/25 Did you have a dental visit in the last 12 months?: Yes Did you have a dental problem in the last 6 months where you did not have access to dental care?: No Was dental information given to patient?: Patient has dentist HPI f/u Anxiety HPI Details Patient is a 34-year-old female here today for a follow-up visit. .. Concern--> The patient has a history of scoliosis as a child, for which she wore a back brace for approximately 2-3 years. She experiences chronic back pain, which is exacerbated by prolonged standing, but she is able to walk two miles without issue. 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 Skin manifestation/ ? Hidradenitis The patient reports a rash that began as dry, red, and painful, eventually forming a scab. It initially appeared on her hands and has spread to her back. She is concerned it might be a bacterial infection, as it resembles a previous shingles outbreak. She has an upcoming dermatology appointment and is considering a skin biopsy due to persistent skin issues. She also has a persistent skin rash associated with pruritus. The rash extends from the chest to the back and sides, and has been noted to bleed occasionally when scratched, especially at night. The patient reports a history of skin sensitivity and has used Aveeno moisturizer since childhood. Previously trialed treatments provided only temporary relief. She has a family history of skin cancer . She has recently seen a core maker and was started on cromolyn. Lower extremity varicose veins: Now followed by [place] vascular surgeon Normochromic anemia: Most recent labs showing improved CBC . Last year Labs were abnormal 4 normocytic anemia and hypokalemia. She has underwent a repeat bone marrow biopsy and some genetic testing. She has been referred to another electronics engineering technologist [facility] for 2nd opinion She has been set up with iron infusions . She has been transitioned to oral B12. Her CBC has much improved. It seems she has been feeling a bit better and her hair loss and thinning has improved. .. Liver fibrosis: The patient was recently evaluated by a glaze sprayer in [place] for cirrhosis. She reports that blood work was good and her liver is functioning well, though she still has a diagnosis of mild cirrhosis. The glaze sprayer recommended weight loss and started her on carvedilol for portal vein pressure, which she has been taking for about two weeks. The patient stopped drinking alcohol last year and is now focusing on increasing her exercise. ... Generalized anxiety disorder: For mental health point of view she has been doing much better. She has self reduced her sertraline down to 50 mg daily and will like to continue weaning down in the dose of SSRI and eventually get off of the medication.. PFSH Medical History Liver cirrhosis NAFL (nonalcoholic fatty liver) Bone marrow disorder Anemia Surgical History H/O biopsy of soft tissue Hx of colonoscopy History of esophagogastroduodenoscopy (EGD) Hx of cholecystectomy Family History Father Diabetes Maternal Grandmother Breast cancer Family/Other Lymphoma Social History Household Members: Family Housing: Apartment Are you a primary caretaker to a significant other at home: No Do you presently have visiting nurse or other home services: No Alcohol intake: former Patient Tobacco Use Status: Never used Tobacco e-Cigarette/Vaping Use: Never Used Second Hand Smoke Exposure: No Substance Use Type: Marijuana service: No Current occupational status: employed Current occupation: [employer] Cognitive needs: No Hearing needs: No Vision needs: No Female Reproductive History Menstrual Age of Menarche: 10 Questionnaire PHQ-9 Over the last 2 weeks, how often have you been bothered by any of the following problems? 1. Little interest or pleasure in doing things: several days 2. Feeling down, depressed, or hopeless: not at all 3. Trouble falling or staying asleep, or sleeping too much: not at all 4. Feeling tired or having little energy: not at all 5. Poor appetite or overeating: not at all 6. Feeling bad about yourself - or that you are a failure or have let yourself or your family down: not at all 7. Trouble concentrating on things, such as reading the newspaper or watching television: not at all 8. Moving or speaking so slowly that other people could have noticed. Or the opposite - being so fidgety or restless that you have been moving around a lot more than usual: not at all 9. Thoughts that you would be better off or of hurting yourself in some way: not at all Total score: 1 Depression Screening Interpretation: Positive Depression Screening Done: Yes 99339 - PHQ-9 Billing: Yes Source: Developed by Drs. Amadeo Rangel, Rosa Isela Cameron, Chris Isabel and colleagues, with an educational pino from [employer] Thrive Questionnaire Date Thrive assessed: 01/22/25 I am a: Patient What is your living situation today?: I have a steady place to live Within the past 12 months, did the food you bought not last and you didn't have the money to get more?: Never true Within the past 12 months, did you worry whether your food would run out before you got money to buy more?: Never true Do you have trouble paying for medicines?: No Do you have trouble getting transportation to medical appointments?: No Do you have trouble paying your heating and electricity bill?: No Do you have trouble taking care of your child, family member or friend?: No Do you have trouble with day-to-day activities such as bathing, preparing meals, shopping, managing finances, etc.?: No Are you currently unemployed and looking for a job?: No Are you interested in more education?: No Please select the resources that you would like help with: None Currently or been in a relationship where the following occur: No concerns reported THRIVE Score: 0 AUDIT C Alcohol Use Questionnaire (AUDIT-C) 1. How often do you have a drink containing alcohol?: Never 3. How often do you have six or more drinks on one occasion?: Never Total Score: 0 MIRYAM-7 AMB Questionnaire MIRYAM-7 Date MIRYAM - 7 assessed: 05/15/24 Feeling nervous, anxious, or on edge: 1 = Several days Not being able to stop or control worryin = Several days Worrying too much about different things: 1 = Several days Trouble relaxin = Several days Being so restless that it is hard to sit still: 0 = Not at all Becoming easily annoyed or irritable: 0 = Not at all Feeling afraid as if something awful might happen: 0 = Not at all Total MIRYAM-7 score (0-4 normal; 5-9 mild; 10-14 moderate; 15-21 severe): 4 Source: Developed by Drs. Amadeo Rangel, Rosa Isela Cameron, Chris Isabel and colleagues, with an educational pino from [employer] MIRYAM-7 Assessment Billing MIRYAM-7 Assessment Tool: MIRYAM-7 Assessment 78920 Review of Systems Const Denies headache(s) Eyes Denies loss of vision ENT Denies vertigo, Denies dizziness, Denies headache(s) and Denies sore throat Card Denies chest pain, Denies leg edema and Denies lightheadedness Resp Denies cough, Denies hemoptysis and Denies wheezing GI Denies abdominal pain, Denies melena, Denies constipation, Denies diarrhea and Denies vomiting Denies urinary frequency, Denies dysuria and Denies urinary urgency Musc Denies arthralgias, Denies joint swelling, Denies numbness and Denies tingling Neuro Denies Abnormal speech present, Denies behavioral changes, Denies vertigo, Denies dizziness, Denies headache(s), Denies loss of vision, Denies memory loss, Denies numbness and Denies tingling Psych Denies anxiety, Denies behavioral changes, Denies depression, Denies memory loss and Denies panic attacks Felipe/Lymph Denies easy bleeding and Denies easy bruising Aller/Immun Denies wheezing Physical exam (Primary Care) Vital Signs: Last Vital Signs Temp 97.3 F 01/22/25 10:10 Pulse 56 01/22/25 10:10 BP 140/92 H 01/22/25 10:10 Pulse Ox 99 01/22/25 10:10 Oxygen Delivery Method Room Air 01/22/25 10:10 BMI result Body Mass Index 36.2 Tobacco/Smoking Status: Tobacco use Status Tobacco use date assessed 01/22/25 01/22/25 10:14 Patient Tobacco Use Status Never used Tobacco 01/22/25 10:14 e-Cigarette/Vaping Use Never Used 01/22/25 10:14 PHQ-9: PHQ-9 Score PHQ-9: Total score 1 01/22/25 10:35 Depression Screening Interpretation: Positive Thrive Assessment: Date of Thrive Assessment Date Thrive assessed 01/22/25 01/22/25 10:14 Currently or been in a relationship where the following occur: No concerns reported Const General: healthy appearing, no acute distress, alert and awake Nutritional Appearance: well nourished Orientation/consciousness: oriented to person, oriented to place and oriented to time [facility] Ears: TM's normal bilaterally General nose exam: Normal nasal mucous membranes and turbinates present Eyes Conjunctivae: conjunctivae normal Sclerae: sclerae normal Pupils: Equal, round and reactive pupils present Neck Neck: Yes no lymphadenopathy and Yes no JVD Thyroid: Thyroid normal Carotids: no bruits Resp Effort & Inspection: normal respiratory effort and not tachypneic Auscultation: no crackles, no rales, no rhonchi and no wheezes Cardio Rate: regular rate Rhythm: regular rhythm Heart sounds: no murmurs and normal S1 and S2 GI Palpation (GI): Soft to palpation, nontender, no hepatomegaly and no splenomegaly Auscultation: normal bowel sounds Skin General skin exam: no rashes or lesions noted and dry skin Neuro General: oriented to person, oriented to place and oriented to time Cranial nerves: Yes Equal, round and reactive pupils present Speech: No Abnormal speech present Gait exam (Neuro): Normal gait present Motor exam (neuro): no tremor noted Extrem Right upper extremity: full ROM Left upper extremity: full ROM Right lower extremity: full ROM; no edema Left lower extremity: full ROM; no edema Psych Mental Status: mental status grossly normal Speech and movement: Normal speech and movement present Affect: normal affect Attitude: cooperative Thought process: Normal thought process present Coding Level of Care Code Est Pt Level 4 (66713) Diagnoses Liver fibrosis K74.00 Skin rash R21 Normochromic normocytic anemia D64.9 MIRYAM (generalized anxiety disorder) F41.1 Class 2 obesity E66.812 Thoracic spine pain M54.6 Lumbar spine pain M54.50 Additional Codes PHQ-9 - 64639 - PHQ-9 Billing: Yes ([id number]) MIRYAM-7 Assessment Billing - MIRYAM-7 Assessment Tool: MIRYAM-7 Assessment 34187 ([id number]) Assessment & Plan Assessment & Plan (1) Liver fibrosis: Code(s): K74.00 - Hepatic fibrosis, unspecified Category: Medical Plan: She has had an extensive workup for her liver fibrosis. Recently was seen by glaze sprayer in [facility]. She was reassured about her liver disease she will continue carvedilol as prescribed by her glaze sprayer. She should continue to abstain from alcohol and focus on weight loss through exercise (2) Skin rash: Code(s): R21 - Rash and other nonspecific skin eruption Category: Medical Plan: Patient is followed by a linter tender though has only use topical agents for her skin manifestation. The lesions under her breasts are thought to be hidradenitis . Will supply patient with short-term script of oral antibiotics and topical antib iotic. She will follow up with Dermatology about further treatment and perhaps disease modifying drugs for this condition. (3) Normochromic normocytic anemia: Code(s): D64.9 - Anemia, unspecified Category: Medical Plan: Continues to follow [place] hematology. Continues on iron supplementation and B12 supplementation. Most recent CBC has not improved. (4) MIRYAM (generalized anxiety disorder): Code(s): F41.1 - Generalized anxiety disorder Category: Medical Plan: Patient is interested in continuing to reduce her dose of SSRI therapy as she feels she is in much better place mental health kate. She feels she has a lot of support through her family and her loved ones (5) Class 2 obesity: Code(s): E66.812 - Obesity, class 2 Category: Medical Plan: Patient does understand her BMI is 35. Have noted recent weight gain over the last 3 months in the setting of increasing sertraline The patient is considering reducing the sertraline dosage to manage weight gain. A follow-up will be scheduled to monitor the effects of dosage adjustment on weight and anxiety symptoms. (6) Thoracic spine pain: Code(s): M54.6 - Pain in thoracic spine Category: Medical Plan: Regarding her back pain, an order for X-rays of the thoracic and lumbar spine has been placed. A referral will be made for physical therapy to address her back pain, posture, and history of scoliosis. The risks of anti-inflammatory medications were discussed, and it was advised to avoid them due to the risk of GI bleeding. (7) Lumbar spine pain: Code(s): M54.50 - Low back pain, unspecified Category: Medical Plan: As above Orders: Orders XR thoracic spine 3V 01/22/25 M54.6 - Pain in thoracic spine Comprehensive Met. Panel 01/22/25 K76.0 - Fatty (change of) liver, not elsewhere classified XR lumbar spine 4V min 01/22/25 M54.50 - Low back pain, unspecified PT Evaluation and Treatment 01/22/25 M54.50 - Low back pain, unspecified Complete Blood Count no Diff 01/22/25 D64.9 - Anemia, unspecified Vitamin D 25-OH Total 01/22/25 D64.9 - Anemia, unspecified Vitamin B12 and Folate 01/22/25 D64.9 - Anemia, unspecified, E53.8 - Deficiency of other specified B group vitamins Vitamin A 01/22/25 K76.0 - Fatty (change of) liver, not elsewhere classified Zinc 01/22/25 K76.0 - Fatty (change of) liver, not elsewhere classified Medications: New clindamycin phosphate 1% 1 appl topical BID 60 mL 0RF 4 weeks L73.2 - Hidradenitis suppurativa doxycycline monohydrate 100 mg PO BID 14 caps 0RF 7 days L73.2 - Hidradenitis suppurativa sertraline 25 mg PO DAILY 30 tabs 3RF 30 days F41.1 - Generalized anxiety disorder Refilled cholecalciferol (vitamin D3) 50 mcg PO DAILY 90 caps 3RF R79.89 - Other specified abnormal findings of blood chemistry Discontinued folic acid Discontinued Reason: Doctor's Order 1 mg PO DAILY 90 tabs 4RF sertraline Discontinued Reason: Doctor's Order 100 mg PO DAILY 30 days 30 tabs 3RF F41.1 - Generalized anxiety disorder
--- OUTSIDE RECORDS SUMMARY | 2025-01-22 12:21 | XMS_ITS | Clinical Summary ---
Author Organization [facility] Address [address] [place] [id number] Phone Care Team Providers Care Stile Ripsaw Operator Name Role Phone Unavailable Primary Care [...] 09/23/1998, Additional history exists Influenza Vaccines (#1) 2024 01/01/2009 COVID-19 Vaccine ( season) 2024 HIB Vaccines Completed 01/02/1990 IPV Vaccines Completed [...]
--- OUTSIDE RECORDS SUMMARY | 2025-01-22 12:21 | XMS_ITS | Encounter Summary ---
Author Organization [facility] Address [address] [place] [address] Care Team Providers Care Drive In Waiter/Waitress Name Role Phone Elyssa Phan NP Primary Care Provider Encounter Details Date Type Department Care Team (Late st Contact Info) Description 01/20/2025 Results Follow-Up [facility] [address] [place] [address] Procurement Agent: Pollo Holliday MD [address] [place] [id number] Social History Tobacco Use Types Packs/Day Years Used Date Smoking Tobacco: Never Smokeless Tobacco: Never Comments Unknown Sex and Gender Information Value Date Recorded Sex Assigned at Female 11/21/2024 12:51 PM EDT Legal Sex Female 3:15 PM EDT Gender Identity Not on file Sexual Orientation Not on file documented as of this encounter Plan of Treatment Upcoming Encounters Date Type Department Care Team (Late st Contact Info) Description 07/15/2025 8:30 AM EDT Follow-Up [facility] [address] [place] [id number] Pollo Solares MD [address] [place] [address] documented as of this encounter Visit Diagnoses Not on filedocumented in this encounter Care Teams Drive In Waiter/Waitress Relationship Specialty Start Date End Date Elyssa Phan NP NPI: [id number] [place] [id number] PCP - General Gastroenterology 11/19/24 documented as of this encounter
--- OUTSIDE RECORDS SUMMARY | 2025-01-22 12:21 | XMS_ITS | Clinical Summary ---
Author Organization [facility] Address [address] [place] [address] Care Team Providers Care Frame Nailer Name Role Phone Elyssa Phan NP Primary Care Provider [phone] Allergies No known active allergies Medications cholecalcifero l (VITAMIN D3) 2,000 unit capsule SMARTSI Capsule(s) By Mouth Daily 08/26/19 25 Active clindamycin (CLEOCIN T) 1 % lotion SMARTSIG:Topi zonia Daily 11/27/19 25 Active esomeprazole (NexIUM) 40 mg capsule SMARTSI Capsule(s) By Mouth Daily 10/15/19 25 Active folic acid (FOLVITE) 1 mg tablet SMARTSI Tablet(s) By Mouth Daily 09/11/19 25 Active LORazepam (ATIVAN) 0.5 mg tablet 01/07/20 25 Active sertraline (ZOLOFT) 50 mg tablet SMARTSI Tablet(s) By Mouth Daily 06/08/19 25 Active carvediloL (COREG) 3.125 mg tablet Take 1 tablet (3.125 mg total) by mouth 2 times a day with meals. 180 tablet 1 01/08/20 25 Active zinc sulfate (ZINCATE) 50 mg zinc (220 mg) capsule Take 1 capsule (50 mg of elemental zinc total) by mouth once a day. 30 capsule 01/11/20 25 025 Active vitamin A 3,000 mcg (10,000 unit) capsule Take 1 capsule (10,000 Units total) by mouth once a day. 30 capsule 2 01/11/20 25 026 Active omeprazole (PriLOSEC) 20 mg capsule SMARTSI Capsule(s) By Mouth Daily 06/04/19 25 025 Discontinued Encounters Date Type Department Care Team Description 01/20/2025 Results Follow-Up [facility] [address] [place] [phone] Electronics Recycler: Pollo Holliday MD 01/10/2025 Telephone [facility] [address] [place] [address] Electronics Recycler: Pollo Holliday MD 01/07/2025 8:00 AM EDT Office Visit [facility] [address] [address] Electronics Recycler: Pollo Holliday MD Alcoholic cirrhosis of liver without ascites (Primary Dx) 11/27/2024 Telephone [facility] [address] [place] [phone] Electronics Recycler: Fabby Irizarry Telephone Intake, Staff PAC Urgent Appt Request 11/16/2024 Orders Only External Imaging [address] [place] [phone] Radiology, External from Last 3 Months Family History Medical History Relation Name Comments Liver disease Father Relation Name Status Comments Father Social History Tobacco Use Types Packs/Day Years Used Date Smoking Tobacco: Never Smokeless Tobacco: Never Tobacco Cessation:Counseling Given: Not Answered Comments Unknown Sex and Gender Information Value Date Recorded Sex Assigned at Female 11/21/2024 12:51 PM EDT Legal Sex Female 3:15 PM EDT Gender Identity Not on file Sexual Orientation Not on file Plan of Treatment Upcoming Encounters Date Type Department Care Team (Late st Contact Info) Description 07/15/2025 8:30 AM EDT Follow-Up [facility] [address] [place] [address] Pollo Solares MD [address] [place] [id number] Health Maintenance Due Date Last Done Comments Cervical Cancer Screening 1988 HIV Screening 1988 HPV and Pap Smear 1988 Hepatitis C Screening 1988 Pap Smear 1988 Varicella Vaccines (1 of 2 - 13+ 2-dose series) 2001 Pneumococcal Vaccine: Pediat gretchen (0-5 Years) and At-Risk Patients (6-50 Years) (1 of 2 - PCV) 06/21/2007 Alcohol/Substance Use Screening 03/27/2024 Depression Screening and Follow-Up 03/27/2024 Monitor Drivers of Health Eryn ual Screening 03/27/2024 COVID-19 Vaccine (4 - 2024-2 6 season) 2024 03/13/2021, 08/26/2020, 07/29/2020 Influenza Vaccine (#1) 2024 01/01/2009 DTaP,Tdap,and Td Vaccines (9 - Td or Tdap) 08/01/2027 07/31/2017, 08/09/2007, 12/20/2000, Additional history exists RSV Vaccine (60+ years old a nd patients) (1 - 1-dose 75+ series) 06/21/2063 Hepatitis B Vaccines Completed 07/19/2000, 03/06/2000, 01/12/2000 Procedures * Due to [place] state law, this organization might not be sharing negative HIV tests. Procedure Name Priority Date/Time Associated Diagnosis Comments [id number] (AAT) PHENOTYPE Routine 01/07/2025 9:34 AM EDT Alcoholic cirrhosis of liver without ascites AFP TUMOR MARKER Routine 01/07/2025 9:34 AM EDT Alcoholic cirrhosis of liver without ascites CBC AUTO DIFFERENTIAL Routine 01/07/2025 9:34 AM EDT Alcoholic cirrhosis of liver without ascites COMPREHENSIVE METABOLIC PANEL Routine 01/07/2025 9:34 AM EDT Alcoholic cirrhosis of liver without ascites PROTIME-INR Routine 01/07/2025 9:34 AM EDT Alcoholic cirrhosis of liver without ascites VITAMIN A (RETINOL) Routine 01/07/2025 9 :34 AM EDT Alcoholic cirrhosis of liver without ascites ZINC, PLASMA/[id number] Routine 01/07/2025 9:34 AM EDT Alcoholic cirrhosis of liver without ascites PHOSPHATIDYLETHANOL-AR [id number] Routine 01/07/2025 9:34 AM EDT Alcoholic cirrhosis of liver without ascites HEPATITIS A ANTIBODY, TOTAL Routine 01/07/2025 9:34 AM EDT Alcoholic cirrhosis of liver without ascites LAB - SCANNED 11/19/2024 AMB EXTERNAL MRI ABDOMEN, OUTSIDE RESULT 11/16/2024 PATHOLOGY - SCANNED 11/05/2024 PROCEDURE - SCANNED 11/05/2024 from Last 3 Months Results * Due to [place] state law, this organization might not be sharing negative HIV tests. * Phosphatidylethanol (PEth) (01/07/2025 9:34 AM EDT) PEth 16:0/18:1 (POPEth) <10 ng/mL 01/09/2025 7:33 AM EDT [facility] Comment: PEth 16:0/18:1 (POPEth) Less than 10 ng/mL............Not detected Less than 20 ng/mL............Abstinence or light alcohol consumption 20 - 200 ng/mL................Moderate alcohol consumption Greater than 200 ng/mL........Heavy alcohol consumption or chronic alcohol use (Reference: Miguel Kimbrough and Anahy Avendano 2018 J. Forensic Sci) PEth 16:0/18:2 (PLPEth) <10 ng/mL 01/09/2025 7:33 AM EDT [facility] Comment:Reference ranges are not well established. EER Peth See Note 01/09/2025 7:33 AM EDT [facility] Comment: Authorized individuals can access the [employer] Enhanced Report with an [employer] Connect account using the following link. Your local lab can assist you in obtaining the patient report if you don't have a Connect account. [email or web address] PEth Interpretation See Comment 12/25 7:33 AM EDT [facility] Comment: Phosphatidylethanol (PEth) is a group of phospholipids formed in the presence of ethanol, phospholipase D and phosphatidylcholine. PEth is known to be a direct alcohol biomarker. The predominant PEth homologues are PEth 16:0/18:1 (POPEth) and PEth 16:0/18:2 (PLPEth), which account for 37-46% and 26-28% of the total PEth homologues, respectively. PEth is incorporated into the phospholipid membrane of red blood cells and has a general half-life of 4-10 days and a window of detection of 2-4 weeks. However, the window of detection is longer in individuals who chronically or excessively consume alcohol. The limit of quantification is 10 ng/mL. Serial monitoring of PEth may be helpful in monitoring alcohol abstinence over time. PEth results should be interpreted in the context of the patient's clinical and behavioral history. Patients with advanced liver disease may have falsely elevated PEth concentrations (Valarie GARRETT et al 2018, Alcoholism Clinical & Experimental Research). This test was developed and its performance characteristics determined by [facility]. It has not been cleared or approved by the U.S. Food and Drug Administration. This test was performed in a CLIA-certified laboratory and is intended for clinical purposes. Performed By: [facility] [address] [place] [address] Watermelon Inspector: Meliton Michael MD, PhD CLIA Number: [id number] Blood Structure of peripheral vein / Unknown Venipuncture / Unknown 01/07/2025 9:34 AM EDT 01/07/2025 9:44 AM EDT us Pollo Solares MD LAB BLOOD ORDERABLES Final Re sult [facility] [address] [place] [address], * Lstow-2-Ywqcbvwwnet (AAT) Phenotype (01/07/2025 9:34 AM EDT) Alpha 1 Antitrypsin Phenotype SEE NOTE 01/13/2025 4:04 PM EDT [facility] Comment: THIS PATIENT'S WUYKO-0-KFXENOQXMMV PHENOTYPE IS PI*MM. 90% of normal individuals have the MM phenotype, with normal quantitative AAT levels. Many phenotypic patterns have been described, including deficiency states with F, S, Z, or other alleles. As a general estimation, compared to M allele of 100% of normal S-8-Elyjadfapha protein, the S allele produces approximately 60% and the Z allele 20%. For example, an MS phenotype would have about 80% of normal W-4-Jsrpoyeieps protein level, a 50% contribution from the M allele and 30% from the S allele. A ZZ phenotype would have about 20% of normal levels, a 10% contribution from each Z gene. The F allele has normal N-6-Dvvsnqyhsnp levels, but the kinetics of elastase inhibition is not as efficient as an M allele product; F alleles should be considered functionally mildly deficient. Other variants are identifiable by phenotypic analysis. These include CM, DP, EM, GM, IS, LM, M1M2, M3M3, MP, MT, XX, MY, and M1N. I, P, T and null alleles are considered deleterious. C, D, E, G, L, M1, M2, M3, X and Y alleles are generally considered normal variants. The MZ-Escobar phenotype is a normal variant; care should be taken to avoid confusion with the deficient MZ phenotype. Blood Structure of peripheral vein / Unknown Venipuncture / Unknown 01/07/2025 9:34 AM EDT 01/07/2025 9:43 AM EDT Narrative [facility] - 01/13/2025 4:04 PM EDT [facility] Received Date: us Pollo Solares MD LAB BLOOD ORDERABLES Final Re sult [facility] [address], [place] [address], [facility] [address] [place] [address], [place] [phone] * CBC Auto Differential (01/07/2025 9:34 AM EDT) WBC 6.0 3.8 - 10.8 10*3/uL 01/07/2025 9:52 AM EDT [facility] RBC 4.19 3.80 - 5.10 10*6/uL 01/07/2025 9:52 AM EDT [facility] Hemoglobin 12.3 11.7 - 15.5 g/dL 01/07/2025 9:52 AM EDT [facility] Hematocrit 36.8 35.0 - 45.0 % 01/07/2025 9:52 AM EDT [facility] MCV 87.8 80.0 - 100.0 fL 01/07/2025 9:52 AM EDT [facility] MCH 29.4 27.0 - 33.0 pg 01/07/2025 9:52 AM EDT [facility] MCHC 33.4 32.0 - 36.0 g/dL 01/07/2025 9:52 AM EDT [facility] RDW 13.1 11.0 - 15.0 % 01/07/2025 9:52 AM EDT [facility] Platelets 148 140 - 400 10*3/uL 01/07/2025 9:52 AM EDT [facility] MPV 10.0 7.5 - 12.5 fL 01/07/2025 9:52 AM EDT [facility] Neutrophil % 54.8 % 01/07/2025 9:52 AM EDT [facility] Immature Grans % 0.2 0.0 - 0.9 % 01/07/2025 9:52 AM EDT [facility] Lymphocyte % 33.7 % 01/07/2025 9:52 AM EDT [facility] Monocyte % 5.5 % 01/07/2025 9:52 AM EDT [facility] Eosinophil % 5.0 % 01/07/2025 9:52 AM EDT [facility] Basophil % 0.8 % 01/07/2025 9:52 AM EDT [facility] Neutrophil # 3.26 1.50 - 7.80 10*3/uL 01/07/2025 9:52 AM EDT [facility] Immature Grans # <0.03 <=0.03 10*3/uL 01/07/2025 9:52 AM EDT [facility] Lymphocyte # 2.00 0.85 - 3.90 10*3/uL 01/07/2025 9:52 AM EDT [facility] Monocyte # 0.30 0.20 - 0.95 10*3/uL 01/07/2025 9:52 AM EDT [facility] Eosinophil # 0.30 0.02 - 0.50 10*3/uL 01/07/2025 9:52 AM EDT [facility] Basophil # 0.10 0.00 - 0.20 10*3/uL 01/07/2025 9:52 AM EDT [facility] nRBC % 0.0 /100 WBCs 01/07/2025 9:52 AM EDT [facility] nRBC # <0.01 <0.01 10*3/uL 01/07/2025 9:52 AM EDT [facility] Blood Structure of peripheral vein / Unknown Venipuncture / Unknown 01/07/2025 9:34 AM EDT 01/07/2025 9:44 AM EDT us Pollo Solares MD LAB BLOOD ORDERABLES Final Re sult [facility] [address] [place] [address], [place] * (ABNORMAL) Hepatitis A Antibody, Total (01/07/2025 9:34 AM EDT) Pathologist [facility] Hepatitis A Ab, Total REACTIVE( A) NON-REACT TARA 01/07/2025 11:48 [address] [facility] Comment: For additional information, please refer to http://education.thesixtyone/faq/FKJ390 (This link is being provided for informational/ educational purposes only.) Blood Structure of peripheral vein / Unknown Venipuncture / Unknown 01/07/2025 9:34 AM EDT 01/07/2025 9:43 AM EDT [facility] 01/07/2025 11:48 PM EDT [facility] Received Date: Pollo Solares MD LAB BLOOD ORDERABLES Final Re sult Performing Organization Address [facility] Co de Phone Number [facility] [address], [place] [address], [facility] [address] [facility] [address], [place] [address], * (ABNORMAL) Zinc (01/07/2025 9:34 AM EDT) [facility] Zinc 52(L) 60 - 130 mcg/dL 01/09/2025 11:34 PM EDT [facility] (SHANTEL) Comment: This test was developed and its analytical performance characteristics have been determined by [employer] [place], [place]. It has not been cleared or approved by the U.S. Food and Drug Administration. This assay has been validated pursuant to the CLIA regulations and is used for clinical purposes. Blood Structure of peripheral vein / Unknown Venipuncture / Unknown 01/07/2025 9:34 AM EDT 01/07/2025 9:44 AM EDT [facility] KNIGHT) - 01/09/2025 11:34 PM EDT [facility] Received Date:[id number] Pollo Solares MD LAB BLOOD ORDERABLES Final Re sult Performing Organization Address [facility] Co de Phone Number [facility] KNIGHT) [address] [place], [place] , [place] * (ABNORMAL) Vitamin A (01/07/2025 9:34 AM EDT) Pathologist [facility] Vitamin A (Retinol) 31(L) 38 - 98 mcg/dL 01/09/2025 1:37 PM EDT [facility]NIGHT) Comment: Vitamin supplementation within 24 hours prior to blood draw may affect the accuracy of the results. This test was developed and its analytical performance characteristics have been determined by [employer] [place], [place]. It has not been cleared or approved by the U.S. Food and Drug Administration. This assay has been validated pursuant to the CLIA regulations and is used for clinical purposes. Blood Structure of peripheral vein / Unknown Venipuncture / Unknown 01/07/2025 9:34 AM EDT 01/07/2025 9:43 AM EDT [facility] KNIGHT) - 01/09/2025 1:37 PM EDT [facility] Received Date:[id number] Pollo Solares MD LAB BLOOD ORDERABLES Final Re sult Performing Organization Address [facility] de Phone Number [facility] (NICHOLS) [address] [place], [place] , [place] * AFP Tumor Marker (01/07/2025 9:34 AM EDT) [facility] Alpha Fetoprotein, Tumor Marker 2.0 ng/mL 01/08/2025 11:34 AM EDT [facility] Comment: Reference Range: <6.1 The use of AFP as a tumor marker in females is not recommended. This test was performed using the [place] chemiluminescent method. Values obtained from different assay methods cannot be used interchangeably. AFP levels, regardless of value, should not be interpreted as absolute evidence of the presence or absence of disease. Blood Structure of peripheral vein / Unknown Venipuncture / Unknown 01/07/2025 9:34 AM EDT 01/07/2025 9:43 AM EDT Narrative [facility] - 01/08/2025 11:34 AM EDT [facility] Received Date: Pollo Solares MD LAB BLOOD ORDERABLES Final Re sult [facility] [address], [place] [address], [place] [phone] [facility] [address] [facility] [address], [place] [address], [place] [phone] * Protime-INR (01/07/2025 9:34 AM EDT) PT 11.5 9.6 - 12.4 Seconds 01/07/2025 9:58 AM EDT [facility] INR 1.1 0.9 - 1.1 01/07/2025 9:58 AM EDT [facility] Comment:The optimal therapeu tic INR range for patients treated with Vitamin K antagonists (VKAS, e.g., Warfarin) is 2.0 to 3.5. Discuss the desired range with your doctor/care team. Blood Structure of peripheral vein / Unknown Venipuncture / Unknown 01/07/2025 9:34 AM EDT 01/07/2025 9:44 AM EDT Pollo Solares MD LAB BLOOD ORDERABLES Final Re sult Performing Organization Address City/[facility]/ZIP Co de Phone Number [facility] [address] [place] [address], * (ABNORMAL) Comprehensive Metabolic Panel (01/07/2025 9:34 AM EDT) NA 141 135 - 145 mmol/L 01/07/2025 10:16 AM EDT [facility] K 4.3 3.5 - 5.3 mmol/L 01/07/2025 10:16 AM [employer] [facility] Cl 104 97 - 110 mmol/L 01/07/2025 10:16 AM [employer] [facility] CO2 26 22 - 32 mmol/L 01/07/2025 10:16 AM [employer] [facility] Anion Gap 11 5 - 15 01/07/2025 10:16 AM [employer] [facility] Glucose 109(H) 65 - 99 mg/dL 01/07/2025 10:16 AM [employer] [facility] Creatinine 0.74 0.50 - 1.20 mg/dL 01/07/2025 10:16 AM [employer] [facility] Calcium 9.2 8.6 - 10.5 mg/dL 01/07/2025 10:16 AM [employer] [facility] Total Protein 7.2 6.0 - 8.0 g/dL 01/07/2025 10:16 AM [employer] [facility] Albumin 4.2 3.5 - 5.2 g/dL 01/07/2025 10:16 AM [employer] [facility] Bilirubin, Total 0.5 0.2 - 1.2 mg/dL 01/07/2025 10:16 AM [employer] [facility] Alkaline Phosphatase 65 35 - 129 U/L 01/07/2025 10:16 AM [employer] [facility] AST 24 10 - 40 U/L 01/07/2025 10:16 AM [employer] [facility] ALT 23 10 - 40 U/L 01/07/2025 10:16 AM [employer] [facility] BUN 9 7 - 23 mg/dL 01/07/2025 10:16 AM [employer] [facility] eGFR >90 >=60 mL/min/1. 73m2 01/07/2025 10:16 AM EDT [facility] Comment:The estimated glomer ular filtration rate (eGFR) is calculated using a new formula developed by the NKF-ASN task force to eliminate race-based correction factors. The new formula uses serum/plasma creatinine, age, and gender to determine eGFR. A value below 60mls/min might indicate kidney disease and will be flagged. For additional information, see Jd et al, Am J Kidney Dis. 2021;79(2):268- 288, A Unifying Approach for GFR estimation: Recommendations of the NKF-ASN Task Force on Reassessing the Inclusion of Race in Diagnosing Kidney Disease . Globulin, Total 3.0 2.1 - 4.2 g/dL 01/07/2025 10:16 AM EDT [facility] A/G Ratio 1.4(L) 1.5 - 3.0 01/07/2025 10:16 AM EDT [facility] Blood Structure of peripheral vein / Unknown Venipuncture / Unknown 01/07/2025 9:34 AM EDT 01/07/2025 9:43 AM EDT us Pollo Solares MD LAB BLOOD ORDERABLES Final Re sult [facility] [address] [place] [address], [place] * LAB - SCANNED (11/19/2024) us Onbase [facility] LAB HISTORICAL RESULTS Final Result * MRI Abdomen, Outside Result (11/16/2024) Anatomical Region Laterality Modality Other 11/16/2024 us Onbase Scan [facility] AMB EXTERNAL RESULT PROCEDURE S Final Result * PATHOLOGY - SCANNED (11/05/2024) us Onbase Scan [facility] SCANNED PROCEDURES Final Resu lt * PROCEDURE - SCANNED (11/05/2024) us Onbase Scan [facility] SCANNED PROCEDURES Final Resu lt from Last 3 Months Insurance [employer] Care Teams Frame Nailer Relationship Specialty Start Date End Date Elyssa Phan NP [address] [place] [phone] PCP - General Gastroenterology 11/19/24
--- OUTSIDE RECORDS SUMMARY | 2025-01-22 12:21 | XMS_ITS | Encounter Summary ---
Author Organization [facility] Address [address] [place] [address] Phone Care Team Providers Care Adding Machine Operator Name Role Phone Emma Lizarraga MD Primary Care Provider Encounter Details Date Type Department Care Team (Late st Contact Info) Description 11/10/2016 Conversion Encounter [facility] [address] [place] [address] Social History Tobacco Use Types Packs/Day Years [...] on filedocumented in this encounter Care Teams Adding Machine Operator Relationship Specialty Start Date End Date Emma Lizarraga MD [address] [place] [address] PCP - General 11/04/16 05/11/22 documented as of this encounter
== END 2025-01-22 11:03 | disposition home or self-care (01) ==
LOC: HO.HMCH 10:07
PROVIDERS: PCP Physician Assistant; Visit Provider Physician Assistant
DX: K74.00 Hepatic fibrosis, unspecified (principal); R21 Rash and other nonspecific skin eruption; E66.812 Obesity, class 2; Z68.36 Body mass index [BMI] 36.0-36.9, adult; D64.9 Anemia, unspecified; F41.1 Generalized anxiety disorder; M54.6 Pain in thoracic spine; M54.50 Low back pain, unspecified

== ENCOUNTER → 2025-01-22 10:07 | Outpatient (BNVA) | payer OTHER, SELFPAY | PROVIDERS: PCP Physician Assistant; Visit Provider Physician Assistant | DX: L73.2 Hidradenitis suppurativa (principal); R21 Rash and other nonspecific skin eruption; I83.93 Asymptomatic varicose veins of bilateral lower extremities; D64.9 Anemia, unspecified; K74.00 Hepatic fibrosis, unspecified; F41.1 Generalized anxiety disorder; E66.812 Obesity, class 2; M54.6 Pain in thoracic spine; M54.50 Low back pain, unspecified; E53.8 Deficiency of other specified B group vitamins; K76.0 Fatty (change of) liver, not elsewhere classified; Z68.36 Body mass index [BMI] 36.0-36.9, adult | CPT/HCPCS: 96127; 99212 ==

== ENCOUNTER 2025-02-04 10:27 | Outpatient (AMB) | payer MEDICAID, SELFPAY ==
--- NOTE | 2025-02-04 10:27 | MHC.OFFVIS ---
Vital Signs 02/04/25 11:54 Height 5 ft 9 in Weight 240 lb BMI 35.4 BP 128/82 Intake Visit Reasons: ALUMNI COORDINATOR annual exam Field Interviewer: Field Interviewer Present (Xochitl) Accompanied by: Self / Same As Patient Allergies No Known Allergies Allergy (Verified 02/04/25 10:42) Medication List - Last Reconciled 02/04/25 by Yasmine Rinaldi CNM carvedilol 3.125 mg PO BID chlorhexidine gluconate 4% (Hibiclens) 1 appl topical DAILY 4 weeks cholecalciferol (vitamin D3) 50 mcg PO DAILY clindamycin phosphate 1% 1 appl topical BID 4 weeks cyanocobalamin (vitamin B-12) 1,000 mcg sublingual DAILY doxycycline monohydrate 100 mg PO BID 7 days esomeprazole magnesium 40 mg PO DAILY hydroxyzine HCl 25 mg PO BID PRN 30 days lorazepam 0.5 mg PO BID PRN 5 days ondansetron 4 mg PO Q6H sertraline 25 mg PO DAILY 30 days sucralfate 10 mL PO BEDTIME triamcinolone acetonide 0.1% 1 appl topical DAILY 30 days Is last menstrual period known: Yes Last menstrual period: 01/21/25 Post menopausal: No Patient : No HPI HPI ALUMNI COORDINATOR annual exam: Details: 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 She has been dealing with other health problems she has had had a diagnosis of cirrhosis of her liver. She is definitely trying to eat well and take care of herself and everything but she has gained a lot of weight recently she has been feeling like her legs feel weak and she will be getting a workup for her back. She has just started having conversations with her primary about GLP ones to aid in weight loss as it seems like nothing really helps her sertraline was just increased so she is not sure if that has anything to do with it either she also saw a dispenser operator this summer when she had shingles. She also had a recent lesion under her breast that the dispenser operator told her was hidradenitis and she was given antibiotics which she is on now for that she uses condoms for control. 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 [facility] Medical History Liver cirrhosis NAFL (nonalcoholic fatty liver) Bone marrow disorder Anemia Surgical History H/O biopsy of soft tissue Hx of colonoscopy History of esophagogastroduodenoscopy (EGD) Hx of cholecystectomy Family History Father Diabetes Maternal Grandmother Breast cancer Family/Other Lymphoma Social History Household Members: Family Housing: Apartment Are you a primary director of managed care to a significant other at home: No Do you presently have visiting nurse or other home services: No Alcohol intake: former Patient Tobacco Use Status: Never used Tobacco e-Cigarette/Vaping Use: Never Used Second Hand Smoke Exposure: No Substance Use Type: Marijuana service: No Current occupational status: employed Current occupation: [email or web address] Cognitive needs: No Hearing needs: No Vision needs: No Female Reproductive History Menstrual Age of Menarche: 10 Duration of menses: 3-5 days Date of last menstrual period: 01/21/25 control method: none Total pregnancies: 0 Date of last pap smear: 11/01/23 (negative pap smear, negative hpv ) History of abnormal pap smear: No Physical Exam Const General: healthy appearing, comfortable, no acute distress, well developed and alert Nutritional Appearance: average body habitus Orientation/consciousness: patient oriented x3 Limitations: no limitations HEENT Head: Yes normocephalic Neck Neck: Yes normal visual inspection Chest Chest palpation & inspection: normal inspection of the chest Breast/axilla inspection: normal inspection of the breasts and normal inspection of the axillae Breast/axilla palpation: normal palpation of the breasts and normal palpation of the axillae Resp Effort & Inspection: normal respiratory effort GI Inspection: Yes normal to inspection, No Abdominal wall edema and No distended Palpation (GI): Soft to palpation and nontender Other: External exam within normal limits the vulva slightly pink and skin feels slightly dry (underwear fabric is nylon), Vagina is pink and moist cervix nulliparous pink smooth healthy appearing testing for STIs offered and done not due for Pap. Uterus small midposition mobile nontender good tone with Kegel coached in doing them. General: Yes bladder normal to palpation External Female Exam: normal external appearance and normal appearance of the urethra Speculum Exam - Vagina: normal appearance of the vagina, normal palpation and normal vaginal discharge Speculum Exam - Cervix: normal appearance of the cervix, normal palpation and nontender Bimanual exam- vagina & uterus: normal bimanual exam, normal palpation, uterine size normal, bladder normal to palpation, consistency normal, normal palpation, uterine mobility normal, uterine shape normal, No Cervical tenderness present, non-tender and no cervical motion tenderness Bimanual Exam- Adnexa, other: normal adnexae, no masses, normal and No adnexal tenderness Neuro General: patient oriented x3 Assessment & Plan Assessment & Plan (1) Well woman exam with routine gynecological exam: Code(s): Z01.419 - Encounter for gynecological examination (general) (routine) without abnormal findings Category: Medical (2) Cervical cancer screening: Comment: 11/01/2023 Pap is negative with negative HPV. Code(s): Z12.4 - Encounter for screening for malignant neoplasm of cervix Category: Medical (3) control counseling: Code(s): Z30.09 - Encounter for other general counseling and advice on contraception Category: Medical (4) Breast cancer screening: Code(s): Z12.39 - Encounter for other screening for malignant neoplasm of breast Category: Medical Plan -----Discussed in this visit the following: healthy balanced diet, regular and consistent exercise, getting recommended health screens, doing the best she can for her particular health concerns, kegel exercises, pap smear screening and followup recommendations, mammography screening and SBE, normal changes in cycles in her life stage--- .Discussed in general terms the challenges of obesity and challenges for her health and efforts she is engaging in to manage this including dietary changes water intake attention to sleep inclusion of a regular exercise have it and dealing with the may need stressors of life that can contribute to obesity in general. Encouraged her to continue in all have her best efforts. Discussed her challenges with her health concerns and her symptoms and ways to slowly increase activity while she is undergoing her evaluations. She is trying to eat healthier and prepare better foods. Discussed possible other strategies for activity. She is not interested in anything other than condoms for now. Discussed the occasional vaginal dryness and that it maybe related to mild yeast and encouraged cotton underwear instead of the nylon underwear, and if her insurance does not cover the Monistat it is cheaperto buy in [employer]. Medications: New miconazole nitrate 2% (Miconazole-7) 1 appful vaginal BEDTIME 45 grams 3RF 7 days Coding Level of Care Code Est Pt Prev Care 18-39y([id number]) Diagnoses Well woman exam with routine gynecological exam Z01.419 Cervical cancer screening Z12.4 control counseling Z30.09 Breast cancer screening Z12.39
[2025-02-04 11:54] VITALS: BP 128/82; BMI 35.4
--- OUTSIDE RECORDS SUMMARY | 2025-02-04 12:01 | XMS_ITS | Clinical Summary ---
Author Organization [facility] Address [address] [place] [address] Phone Care Team Providers Care Manager Oracle Database Name Role Phone Unavailable Primary Care Provider [...]
--- OUTSIDE RECORDS SUMMARY | 2025-02-04 12:01 | XMS_ITS | Encounter Summary ---
Author Organization [facility] Address [address] [place] [address] Phone Care Team Providers Care Brick Burner Name Role Phone Emma Lizarraga MD Primary Care Provider [phone] Encounter Details Date Type Department Care Team (Late st Contact Info) Description 11/10/2016 Conversion Encounter [facility] [place] [address] [place] [address] Social History Tobacco Use Types Packs/Day Years [...] on filedocumented in this encounter Care Teams Brick Burner Relationship Specialty Start Date End Date Emma Lizarraga MD [address] [place] [address] PCP - General 11/04/16 05/11/22 documented as of this encounter
--- OUTSIDE RECORDS SUMMARY | 2025-02-04 12:02 | XMS_ITS | Clinical Summary ---
Author Organization [facility] Address [address] [place] [address] Care Team Providers Care Forgeman Helper Name Role Phone Elyssa Phan NP Primary Care Provider Allergies No known active allergies Medications cholecalcifero [...] Department Care Team Description 01/20/2025 Results Follow-Up [facility] [address] [place] [address] Canine Deputy: Pollo Holliday MD 01/10/2025 Telephone [facility] [address] [place] [phone] Canine Deputy: Pollo Holliday MD 01/07/2025 8:00 AM EDT Office Visit [facility] [address] [address] Canine Deputy: Pollo Holliday MD Alcoholic cirrhosis of liver without ascites (Primary Dx) 11/27/2024 Telephone [facility] [address] [place] [phone] Canine Deputy: Fabby Irizarry Telephone Intake, Staff PAC Urgent Appt Request 11/16/2024 Orders Only External Imaging [address] [place] [phone] Radiology, External from Last 3 Months Family [...] AM EDT Follow-Up [facility] [address] [place] [address] Pollo Solares MD [address] [place] [address] Health Maintenance Due Date Last Done Comments Cervical Cancer Screening 1988 HIV Screening 1988 HPV and Pap Smear 1988 Hepatitis C Screening 1988 Pap Smear 1988 Varicella Vaccines (1 of 2 - 13+ 2-dose series) 2001 Pneumococcal Vaccine: Pediat gretchen (0-5 Years) and At-Risk Patients (6-50 Years) (1 of 2 - PCV) 06/21/2007 Alcohol/Substance Use Screening 03/27/2024 Depression Screening and Follow-Up 03/27/2024 [employer] Eryn ual Screening 03/27/2024 COVID-19 Vaccine (4 - 2024-2 6 season) 2024 03/13/2021, 08/26/2020, 07/29/2020 Influenza Vaccine (#1) 2024 01/01/2009 DTaP,Tdap,and Td Vaccines (9 - Td or Tdap) 08/01/2027 07/31/2017, 08/09/2007, 12/20/2000, Additional history exists Hepatitis B Vaccines Completed 07/19/2000, 03/06/2000, 01/12/2000 Procedures * Due to [place] state law, this organization might not be sharing negative HIV tests. Procedure Name Priority Date/Time Associated Diagnosis Comments [id number]-[id number] (AAT) PHENOTYPE Routine 01/07/2025 9:34 AM EDT [...] Alcoholic cirrhosis of liver without ascites ZINC, [id number] Routine 01/07/2025 9:34 AM EDT Alcoholic cirrhosis of liver without ascites PHOSPHATIDYLETHANOL-AR [id number] Routine 01/07/2025 9:34 AM EDT Alcoholic cirrhosis of liver without ascites HEPATITIS A ANTIBODY, TOTAL Routine 01/07/2025 9:34 AM EDT Alcoholic cirrhosis of liver without ascites LAB - SCANNED 11/19/2024 AMB EXTERNAL MRI ABDOMEN, OUTSIDE RESULT 11/16/2024 PATHOLOGY - SCANNED 11/05/2024 PROCEDURE - SCANNED 11/05/2024 from Last 3 Months Results * Due to [place] state law, this organization might not be [...] LABORATORY Comment: Authorized individuals can access the [facility] Enhanced Report with an [facility] Connect account using the following link. Your local lab can assist you in obtaining the patient report if you don't have a Connect account. [email or web address] PEth Interpretation See Comment 12/25 7:33 AM EDT [facility] Comment: Phosphatidylethanol (PEth) is a group of [...] developed and its performance characteristics determined by [facility]. It has not been cleared or approved by the U.S. Food and Drug Administration. This test was performed in a CLIA-certified laboratory and is intended for clinical purposes. Performed By: [facility] [address] [place], [place] [id number] Meter Technician: Meliton Michael MD, PhD CLIA Number: [id number] Blood Structure of peripheral vein / Unknown Venipuncture / Unknown 01/07/2025 9:34 AM EDT 01/07/2025 9:44 AM EDT us Pollo Solares MD LAB BLOOD ORDERABLES Final Re sult [facility] [address] [phone], * Tiqfz-4-Qwxuzbnjoyy (AAT) Phenotype (01/07/2025 9:34 AM EDT) Alpha 1 Antitrypsin Phenotype SEE NOTE 01/13/2025 4:04 PM EDT [facility] Comment: THIS PATIENT'S APAUK-9-JKLXNVPGELK PHENOTYPE IS PI*MM. 90% of normal individuals have the MM phenotype, with normal quantitative AAT levels. Many phenotypic patterns have been described, including deficiency states with F, S, Z, or other alleles. As a general estimation, compared to M allele of 100% of normal C-2-Vttnmxdulmq protein, the S allele produces approximately 60% and the Z allele 20%. For example, an MS phenotype would have about 80% of normal X-0-Gwfvwpjrhck protein level, a 50% contribution from the M allele and 30% from the S allele. A ZZ phenotype would have about 20% of normal levels, a 10% contribution from each Z gene. The F allele has normal D-7-Phlskprbbpk levels, but the kinetics of elastase inhibition [...] EDT 01/07/2025 9:43 AM EDT Narrative [facility] - 01/13/2025 4:04 PM EDT [facility] Received Date: us Pollo Solares MD LAB BLOOD ORDERABLES Final Re sult [facility] [address] [facility] [address] Floor, [place] [address], [place] [phone] [facility] [id number] [place] [address], [place] [phone] * CBC Auto Differential (01/07/2025 9:34 AM EDT) WBC 6.0 3.8 - 10.8 10*3/uL 01/07/2025 9:52 AM EDT [facility] RBC 4.19 3.80 - 5.10 10*6/uL 01/07/2025 9:52 AM EDT [facility] Hemoglobin 12.3 11.7 - 15.5 g/dL 01/07/2025 9:52 AM EDT [facility] Hematocrit 36.8 35.0 - 45.0 % 01/07/2025 9:52 AM EDT [facility] MCV 87.8 80.0 - 100.0 fL 01/07/2025 9:52 AM EDT [facility] MCH 29.4 27.0 - 33.0 pg 01/07/2025 9:52 AM EDT [facility] MCHC 33.4 32.0 - 36.0 g/dL 01/07/2025 9:52 AM EDT [facility] RDW 13.1 11.0 - 15.0 % 01/07/2025 9:52 AM EDT [facility] Platelets 148 140 - 400 10*3/uL 01/07/2025 9:52 AM EDT [facility] MPV 10.0 7.5 - 12.5 fL 01/07/2025 9:52 AM EDT [facility] Neutrophil % 54.8 % 01/07/2025 9:52 AM EDT [facility] Immature Grans % 0.2 0.0 - 0.9 % 01/07/2025 9:52 AM EDT [facility] Lymphocyte % 33.7 % 01/07/2025 9:52 AM EDT [facility] Monocyte % 5.5 % 01/07/2025 9:52 AM EDT [facility] Eosinophil % 5.0 % 01/07/2025 9:52 AM EDT [facility] Basophil % 0.8 % 01/07/2025 9:52 AM EDT [facility] Neutrophil # 3.26 1.50 - 7.80 10*3/uL 01/07/2025 9:52 AM EDT [facility] Immature Grans # <0.03 <=0.03 10*3/uL 01/07/2025 9:52 AM EDT [facility] Lymphocyte # 2.00 0.85 - 3.90 10*3/uL 01/07/2025 9:52 AM EDT [facility] Monocyte # 0.30 0.20 - 0.95 10*3/uL 01/07/2025 9:52 AM EDT [facility] Eosinophil # 0.30 0.02 - 0.50 10*3/uL 01/07/2025 9:52 AM EDT [facility] Basophil # 0.10 0.00 - 0.20 10*3/uL 01/07/2025 9:52 AM EDT [facility] nRBC % 0.0 /100 WBCs 01/07/2025 9:52 AM EDT [facility] nRBC # <0.01 <0.01 10*3/uL 01/07/2025 9:52 AM EDT [facility] Blood Structure of peripheral vein / Unknown Venipuncture / Unknown 01/07/2025 9:34 AM EDT 01/07/2025 9:44 AM EDT us Pollo Solares MD LAB BLOOD ORDERABLES Final Re sult [facility] [address] [place] [address], [place] * (ABNORMAL) Hepatitis A Antibody, Total (01/07/2025 9:34 AM EDT) Hepatitis A Ab, Total REACTIVE( A) NON-REACT TARA 01/07/2025 11:48 PM EDT [employer] [facility] Comment: For additional information, please refer to [email or web address]/faq/[email or web address] (This link is being provided for informational/ educational purposes only.) Blood Structure of peripheral vein / Unknown Venipuncture / Unknown 01/07/2025 9:34 AM EDT 01/07/2025 9:43 AM EDT [facility] [employer] [facility] - 01/07/2025 11:48 PM EDT [facility] Received Date:[id number] Pollo Solares MD LAB BLOOD ORDERABLES Final Re sult [facility] [address] [facility] [address], [place] [address], [employer] [facility] [address] [facility] [address], [place] [address], * (ABNORMAL) Zinc (01/07/2025 9:34 AM EDT) Pathologist [facility] [place] Zinc 52(L) 60 - 130 mcg/dL 01/09/2025 11:34 PM EDT [facility] KNIGHT) Comment: This test was developed and its analytical performance characteristics have been determined by [place]. It has not been cleared or approved by the U.S. Food and Drug Administration. This assay has been validated pursuant to the CLIA regulations and is used for clinical purposes. Blood Structure of peripheral vein / Unknown Venipuncture / Unknown 01/07/2025 9:34 AM EDT 01/07/2025 9:44 AM EDT [employer] [facility] ([facility]) - 01/09/2025 11:34 PM EDT [facility] Received Date:[id number] Pollo Solares MD LAB BLOOD ORDERABLES Final Re sult [facility]NIGHT) [address] [place], [place] , [place] * (ABNORMAL) Vitamin A (01/07/2025 9:34 AM EDT) Pathologist [facility] [place] Vitamin A (Retinol) 31(L) 38 - 98 mcg/dL 01/09/2025 1:37 PM EDT [facility] KNIGHT) Comment: Vitamin supplementation within 24 hours prior to blood draw may affect the accuracy of the results. This test was developed and its analytical performance characteristics have been determined by [employer] [place], [place]. It has not been cleared or approved by the U.S. Food and Drug Administration. This assay has been validated pursuant to the CLIA regulations and is used for clinical purposes. Blood Structure of peripheral vein / Unknown Venipuncture / Unknown 01/07/2025 9:34 AM EDT 01/07/2025 9:43 AM EDT Narrative [facility] KNIGHT) - 01/09/2025 1:37 PM EDT [facility] Received Date:[id number] Pollo Solares MD LAB BLOOD ORDERABLES Final Re sult Performing Organization Address [facility] [employer] Phone Number [facility] HOWARD (NICHOLS) [address] [place], [place] , [place] * AFP Tumor Marker (01/07/2025 9:34 AM EDT) [facility] Alpha Fetoprotein, Tumor Marker 2.0 ng/mL 01/08/2025 11:34 AM EDT [employer] [facility] Comment: Reference Range: <6.1 The use of AFP as a tumor marker in females is not recommended. This test was performed using the Lynn Crystal chemiluminescent method. Values obtained from different assay methods cannot be used interchangeably. AFP levels, regardless of value, should not be interpreted as absolute evidence of the presence or absence of disease. Blood Structure of peripheral vein / Unknown Venipuncture / Unknown 01/07/2025 9:34 AM EDT 01/07/2025 9:43 AM EDT Narrative [facility] - 01/08/2025 11:34 AM EDT [facility] Received Date: Pollo Solares MD LAB BLOOD ORDERABLES Final Re sult [facility] [address] [facility] [address], [place] [address], [place] [phone] [employer] [facility] [address] [facility] [address], [place] [address], [place] [phone] * Protime-INR (01/07/2025 9:34 AM EDT) PT 11.5 9.6 - 12.4 Seconds 01/07/2025 9:58 AM EDT [facility] INR 1.1 0.9 - 1.1 01/07/2025 9:58 AM EDT [facility] Comment:The optimal therapeu tic INR range for patients treated with Vitamin K antagonists (VKAS, e.g., Warfarin) is 2.0 to 3.5. Discuss the desired range with your doctor/care team. Blood Structure of peripheral vein / Unknown Venipuncture / Unknown 01/07/2025 9:34 AM EDT 01/07/2025 9:44 AM EDT Pollo Solares MD LAB BLOOD ORDERABLES Final Re sult [facility] [address] [place] [address], [place] * (ABNORMAL) Comprehensive Metabolic Panel (01/07/2025 9:34 AM EDT) NA 141 135 - 145 mmol/L 01/07/2025 10:16 AM EDT [facility] K 4.3 3.5 - 5.3 mmol/L 01/07/2025 10:16 AM EDT [facility] Cl 104 97 - 110 mmol/L 01/07/2025 10:16 AM [email or web address] [facility] CO2 26 22 - 32 mmol/L 01/07/2025 10:16 AM [employer] [facility] Anion Gap 11 5 - 15 01/07/2025 10:16 AM [employer] [facility] Glucose 109(H) 65 - 99 mg/dL 01/07/2025 10:16 AM [employer] [facility] Creatinine 0.74 0.50 - 1.20 mg/dL 01/07/2025 10:16 AM [employer] [facility] Calcium 9.2 8.6 - 10.5 mg/dL 01/07/2025 10:16 AM [employer] [facility] Total Protein 7.2 6.0 - 8.0 g/dL 01/07/2025 10:16 AM [employer] [facility] Albumin 4.2 3.5 - 5.2 g/dL 01/07/2025 10:16 AM [employer] [facility] Bilirubin, Total 0.5 0.2 - 1.2 mg/dL 01/07/2025 10:16 AM [employer] [facility] Alkaline Phosphatase 65 35 - 129 U/L 01/07/2025 10:16 AM [employer] [facility] AST 24 10 - 40 U/L 01/07/2025 10:16 AM [employer] [facility] ALT 23 10 - 40 U/L 01/07/2025 10:16 AM [employer] [facility] BUN 9 7 - 23 mg/dL 01/07/2025 10:16 AM [employer] [facility] eGFR >90 >=60 mL/min/1. 73m2 01/07/2025 10:16 AM [employer] [facility] Comment:The estimated glomer ular [...] - 4.2 g/dL 01/07/2025 10:16 AM EDT [facility] A/G Ratio 1.4(L) 1.5 - 3.0 01/07/2025 10:16 AM EDT [facility] Blood Structure of peripheral vein / Unknown Venipuncture / Unknown 01/07/2025 9:34 AM EDT 01/07/2025 9:43 AM EDT us Pollo Solares MD LAB BLOOD ORDERABLES Final Re sult [facility] [address] [place] [address], [place] * LAB - SCANNED (11/19/2024) [facility] [employer] [facility] LAB HISTORICAL RESULTS Final Result * MRI Abdomen, Outside Result (11/16/2024) Anatomical Region Laterality Modality Other 11/16/2024 [facility] AMB EXTERNAL RESULT PROCEDURE S Final Result * PATHOLOGY - SCANNED (11/05/2024) [facility] [employer] [facility] SCANNED PROCEDURES Final Resu lt * PROCEDURE - SCANNED (11/05/2024) [facility] [employer] [facility] SCANNED PROCEDURES Final Resu lt from Last 3 Months Insurance [facility] MEDICAID Care Teams Forgeman Helper Relationship Specialty Start Date End Date Elyssa Phan NP [address] [place] [id number] PCP - General Gastroenterology 11/19/24
--- OUTSIDE RECORDS SUMMARY | 2025-02-04 12:02 | XMS_ITS | Encounter Summary ---
Author Organization [facility] Address [address] [place] [address] Care Team Providers Care Cosmetology Professor Name Role Phone Elyssa Phan NP Primary Care Provider [phone] Encounter Details Date Type Department Care Team (Late st Contact Info) Description 01/20/2025 Results Follow-Up [facility] [address] [place] [address] Kitchen Chef: Pollo Holliday MD [address] [place] [phone] Social History Tobacco Use Types Packs/Day Years [...] AM EDT Follow-Up [facility] [address] [place] [address] Pollo Solares MD [address] [place] [address] documented as of this encounter Visit Diagnoses Not on filedocumented in this encounter Care Teams Cosmetology Professor Relationship Specialty Start Date End Date Elyssa Phan NP NPI: [id number] [place] [id number] PCP - General Gastroenterology 11/19/24 documented as of this encounter
== END 2025-02-04 18:45 | disposition home or self-care (01) ==
LOC: HO.HWSM 10:27
PROVIDERS: PCP Physician Assistant; Visit Provider Advanced Practice Midwife
DX: Z01.419 Encounter for gynecological examination (general) (routine) without abnormal findings (principal); Z30.09 Encounter for other general counseling and advice on contraception; Z12.39 Encounter for other screening for malignant neoplasm of breast
CPT/HCPCS: 99395

== ENCOUNTER 2025-02-04 10:27 | Outpatient (REF) | payer MEDICAID, SELFPAY ==
--- NOTE | ~2025-02-04 | XR_ITS ---
EXAMINATION: XR THORACIC SPINE X-RAY LUMBAR SPINE CLINICAL INFORMATION: M54.6 - Pain in thoracic spine Low back pain COMPARISON: CT chest abdomen pelvis 07/18/2024 TECHNIQUE: Thoracic spine 3 views lumbar spine 5 views FINDINGS: Thoracic spine: Mild dextroconvex curvature. The upper thoracic vertebral bodies are obscured on the lateral view. In the visualized thoracic spine, there is no evidence of acute compression deformity or spondylolisthesis. Multilevel mild disc degeneration. No suspicious lung findings. Lumbar spine: Moderate levoconvex curvature with some degree of spinal rotation. No evidence of acute compression deformity or spondylolisthesis. Moderate L5-S1 disc degeneration. Multilevel mild facet degeneration. No suspicious bony lesions. SI joints are intact.. 2 radiodense projected over the left upper abdomen. XR/XR thoracic spine 2V IMPRESSION: * Upper thoracic vertebral bodies are obscured on the lateral view. In the visualized thoracic spine, no acute findings. * Thoracic spondylosis * Lumbar spondylosis. Moderate L5-S1 disc degeneration. No acute findings. Electronically signed by: Wisam Johnson MD 02/05/2025 10:14 AM [facility]
--- NOTE | ~2025-02-04 | XR_ITS ---
EXAMINATION: XR THORACIC SPINE X-RAY LUMBAR SPINE CLINICAL INFORMATION: M54.6 - Pain in thoracic spine Low back pain COMPARISON: CT chest abdomen pelvis 07/18/2024 TECHNIQUE: Thoracic spine 3 views lumbar spine 5 views FINDINGS: Thoracic spine: Mild dextroconvex curvature. The upper thoracic vertebral bodies are obscured on the lateral view. In the visualized thoracic spine, there is no evidence of acute compression deformity or spondylolisthesis. Multilevel mild disc degeneration. No suspicious lung findings. Lumbar spine: Moderate levoconvex curvature with some degree of spinal rotation. No evidence of acute compression deformity or spondylolisthesis. Moderate L5-S1 disc degeneration. Multilevel mild facet degeneration. No suspicious bony lesions. SI joints are intact.. 2 radiodense projected over the left upper abdomen. XR/XR lumbar spine 4V min IMPRESSION: * Upper thoracic vertebral bodies are obscured on the lateral view. In the visualized thoracic spine, no acute findings. * Thoracic spondylosis * Lumbar spondylosis. Moderate L5-S1 disc degeneration. No acute findings. Electronically signed by: Wisam Johnson MD 02/05/2025 10:14 AM [facility]
== END 2025-02-04 10:28 | disposition home or self-care (01) ==
LOC: HO.XRAY 10:27
PROVIDERS: Absent Provider Physician Assistant; PCP Physician Assistant; Visit Provider Advanced Practice Midwife
DX: Z01.419 Encounter for gynecological examination (general) (routine) without abnormal findings (principal); Z30.09 Encounter for other general counseling and advice on contraception; Z12.39 Encounter for other screening for malignant neoplasm of breast
CPT/HCPCS: 72070; 72110; 81515; 87491; 87591; 99395

== ENCOUNTER → 2025-02-04 12:04 | Outpatient (BNV) | payer MEDICAID, SELFPAY | PROVIDERS: Absent Provider Physician Assistant; PCP Physician Assistant; Visit Provider Radiology Diagnostic Ultrasound | DX: M47.816 Spondylosis without myelopathy or radiculopathy, lumbar region (principal); M47.814 Spondylosis without myelopathy or radiculopathy, thoracic region; M51.370 Other intervertebral disc degeneration, lumbosacral region with discogenic back pain only | CPT/HCPCS: 72070; 72110 ==

== ENCOUNTER 2025-02-04 14:36 | Outpatient (REF) | payer MEDICAID, SELFPAY ==
[2025-02-06 03:26] LABS: Bacterial Vaginosis PCR NEGATIVE (Negative); Candida Group PCR NOT DETECTED (Not Detect); Candida glab krusei PCR NOT DETECTED (Not Detect); Trichomonas vaginalis PCR NOT DETECTED (Not Detect)
[2025-02-06 03:57] LABS: CT PCR NOT DETECTED (Not Detect.); NG PCR NOT DETECTED (Not Detect.)
== END 2025-02-04 14:37 | disposition home or self-care (01) ==
LOC: HO.LNP 14:36
PROVIDERS: Visit Provider Advanced Practice Midwife
DX: Z01.419 Encounter for gynecological examination (general) (routine) without abnormal findings (principal); Z20.2 Contact with and (suspected) exposure to infections with a predominantly sexual mode of transmission
CPT/HCPCS: 81515; 87491; 87591